=== PATIENT | female | born 1935 | race Caucasian/White ===

== ENCOUNTER 2016-05-09 15:59 | Inpatient (IN) | payer MEDICARE, OTHER ==
[~2016-05-09] VITALS: Ht 167.6 cm; Wt 78.9 kg
[~2016-05-09 15:59] MED LIST: ACET-171 PO; BISM262T15 PO; CALC-1001 PO; LEVO50TA6 PO; NITR0.4T6 SL; OMEP20TA86 PO; SIMV20TA4 PO; TOLT4CAP13 PO
--- NOTE | 2016-05-09 16:09 | ED.REPORT ---
HPI-Neurologic Deficit Date of Service May 09, 2016 ED Provider: Dr. Simon Tamez MD An 81 year old female with a history of hyperlipidemia, angina and hypertension presents to the ED via EMS with stroke symptoms that began at 1535. Her last known well was 1535. Grandson reports sudden onset of dysphasia and right sided weakness. Patient states that she initially felt "as if her limbs were not her own". EMS attempted to lift the patient onto a gurney but she was unable to move her right extremities. She claims that her symptoms have improved but she does not believe that she is currently at her baseline. Patient denies any pain during the episode and denies any similar previous episodes. She was seen on 2015 for angina and her results revealed a normal chest CT and echocardiogram. Nursing Notes Stated Complaint: DIFFICULTY SPEAKING Nursing Notes Reviewed: Yes Allergies: Coded Allergies: iodine (Verified Allergy, Unknown, 04/17/16) Scheduled Levothyroxine (Levothyroxine) 50 Mcg Tablet 50 MCG PO DAILY Omeprazole (Omeprazole) 20 Mg Tablet.dr 40 MG PO BID Simvastatin (Simvastatin) 20 Mg Tablet 20 MG PO HS Tolterodine Tartrate ER (Tolterodine Tartrate ER) 4 Mg Capsule 4 MG PO DAILY Scheduled PRN Acetaminophen (Acetaminophen) 500 Mg Tablet 1,000 MG PO TID PRN PRN For Pain Bismuth Subsalicylate (Pepto-Bismol) 262 Mg Tab.chew 262-1,048 MG PO PRN PRN PRN For Dyspepsia or Heartburn Calcium Carbonate (Calcium Carbonate) 300 Mg Calcium (750 Mg) Tab.chew 300 MG PO PRN For Dyspepsia or Heartburn Nitroglycerin SL (Nitroglycerin SL) 0.4 Mg Tab.subl 0.4 MG SL Q5MIN PRN PRN For Chest Pain Repeat every 5 minutes, up to 3 tablets General Time Seen by Provider: 16:14 Chief Complaint Other (Dysphasia) Hx Obtained From: Patient Arrived By: Ambulance Sudden in Onset?: Yes Onset Occurred: 1 - 4 hours ago (1535) Symptom Duration: Since onset Progression Since Onset: Unchanged Associated with: Reports: Weakness (Right sided) Additional Notes: Dysphasia Pertinent Negative: Pt denies other symptoms Recent Healthcare: No recent hospitalization, Recent doctor visit Risk Factors TPA Administration/Criteria Stroke Thrombolytic Therapy : TPA Considered: Yes Neurologist Contacted: At bedside Disc Risk/Benefit/Alternatives: Yes Consent Obtained: Patient Intensive Monitoring Performed: Yes TPA Administered Intravenously: Yes (1642) Complications Encountered: No Inclusion Criteria: Measurable neuro deficit, Onset < 3hr before Tx, 18 years or older Exclusion Criteria: No exclusions Addl Ex Criteria 3-4.5 Hr: Age > 80 years NIH Stroke Scale Level of Consciousness: Alert and responsive (0) Ask Month & Age: Both questions right (0) Open/Close Eyes/Hand Forging Engineer: Performs both tasks (0) Horizontal EO Movements: None (0) Visual Chong: No visual loss (0) Facial Palsy: Normal symmetry (0) Right Arm Motor Drift (10s): Drift, hits bed (2) Left Arm Motor Drift (10s): No drift 10 sec (0) Right Leg Motor Drift (5s): Drift, hits bed (2) Left Leg Motor Drift (5s): No drift 5 sec (0) Limb Ataxia FNF/Heel-Turcios: Ataxia in 1 limb (1) Sensation (Arms/Legs/Face): P-prick dull but felt (1) (Right sided) Language Aphasia: No aphasia, normal (0) Dysarthria: No dysarthria, normal (0) Extinction/Inattention: No exctinct/inattent (0) NIHSS Score: 6 Time NIHSS Performed: 16:14 Past Medical History Past Medical History Notes: Dr. Duke Past Medical History Angina Hypothyroidism Kidney stones Reports: GERD, Hyperlipidemia, Hypertension Past Surgical History right hip hemiarthroplasty kidney stone removal Reports: Hysterectomy Smoking History Former Smoker Social History Alcohol Use: "Social" Other Social History: Good social support, Local resident Ambulatory Status Independent Review of Systems Constitutional: Denies: Chills, Fever Respiratory: Denies: Shortness of breath Cardiovascular: Denies: Chest pain GI: Denies: Abdominal pain, Nausea, Vomiting Neurologic: Reports: Numbness, Slurred speech (Dysphasia ), Weakness (Right sided weakness), Denies: Change LOC, Headache Complete sys rev & neg: except as marked. Physical Exam Initial Vital Signs Vital Signs (First) Date Time Temp Pulse Resp B/P Pulse Ox O2 Delivery O2 Flow Rate FiO2 05/09/16 16:13 101 21 130/78 98 Room Air 05/09/16 16:48 36.7 Initial VS: Reviewed Skin: Warm, Dry, No cyanosis Psychiatric: Mood/affect normal, Behavior normal, Normal thought content General/Constitutional: Awake, Alert Head / Eyes: Atraumatic, Normocephalic Respiratory / Chest: Atraumatic, Breath sounds NL, Breath sounds = bilat Cardiovascular: Heart rate NL, Regular rhythm, Heart sounds NL, No gallop, No murmurs, No rubs Neurologic: Oriented X3 NERUO: See NIH Stroke Scale in Risk Abdomen: Atraumatic, Soft, Non-tender, BS normoactive Upper Extremity / MS: Atraumatic, Vascular intact Lower Extremity / Pelvis / MS: Atraumatic, Vascular intact Interpretation & Diagnostics REPEAT HEAD CT w/o contrast Read by Radiology IMPRESSION: No acute intracranial abnormality. Specifically no evidence for blood. No change is seen since the study at 1609 hrs. of 05/09/16. Dictated by: Zaire Mcginnis M.D. on 05/09/2016 at 17:20 Lab Results Interpretation Result Diagram: 05/09/16 1610 05/09/16 1610 Test 05/09/16 16:10 05/09/16 17:11 White Blood Count 12.7th/mm3 (3.8-10.1) Red Blood Count 4.43mil/mm3 (3.90-5.20) Hemoglobin 13.7g/dL (12.0-15.6) Hematocrit 42.6% (35.0-46.0) Mean Corpuscular Volume 96.2fL (81-100) Mean Corpuscular Hemoglobin 30.9pg (27.0-35.0) Mean Corpuscular Hemoglobin Concent 32.2% (32.0-37.0) Red Cell Distribution Width 13.3% (12.3-15.4) Platelet Count 289bil/L (150-400) Neutrophils (%) (Auto) 62.0% (40-74) Lymphocytes (%) (Auto) 26.3% (14-46) Monocytes (%) (Auto) 10.8% (4-12) Eosinophils (%) (Auto) 0.5% (0-5) Basophils (%) (Auto) 0.2% (0-3) Prothrombin Time 9.8sec (8.1-12.5) Prothromb Time International Ratio 0.92ratio Activated Partial Thromboplast Time 28.0sec (22.8-33.0) Sodium Level 142mEq/L (134-144) Potassium Level 4.9mEq/L (3.5-5.2) Chloride Level 102mEq/L (97-108) Carbon Dioxide Level 25mmol/L (18-29) Blood Urea Nitrogen 14mg/dL (8-27) Creatinine 0.71mg/dL (0.57-1.00) Estimat Glomerular Filtration Rate 113mL/min (>59) Glucose Level 92mg/dL (60-99) Calcium Level 9.3mg/dL (8.5-10.1) Total Bilirubin 0.5mg/dL (0.0-1.2) Aspartate Amino Transf (AST/SGOT) 37U/L (0-50) Alanine Aminotransferase (ALT/SGPT) 31U/L (0-32) Alkaline Phosphatase 219U/L (25-165) Troponin T < 0.010ug/L (0.0-0.011) Total Protein 7.0g/dL (6.4-8.4) Albumin 3.9g/dL (3.4-5.0) Urine Color Yellow (YELLOW) Urine Appearance Clear (CLEAR,HAZY) Urine pH 7.0 (5.0-8.0) Urine Specific [place] 1.010 (1.003-1.035) Urine Protein Negativemg/dL (NEG,TRACE) Urine Glucose (UA) Negativemg/dL (NEGATIVE) Urine Ketones Negativemg/dL (NEGATIVE) Urine Occult Blood Small (NEGATIVE) Urine Nitrite Negative (NEGATIVE) Urine Bilirubin Negative (NEGATIVE) Urine Urobilinogen Normalmg/dL (NORMAL) Urine Leukocyte Esterase Negative (NEGATIVE) Urine RBC 3-10/hpf (0-2) Urine WBC 0-5/hpf (0-5) Urine Epithelial Cells Occasional/hpf (NONE-MOD) Urine Crystals None seen (NONE SEEN) Urine Bacteria None/hpf (NONE-FEW) Urine Hyaline Casts None/lpf (NONE) Urine Granular Casts None seen (NONE SEEN) Urine Waxy Casts None seen (NONE SEEN) Urine Red Blood Cell Casts None seen (NONE SEEN) Urine White Blood Cell Casts None seen (NONE SEEN) Urine Mucus None seen (None Seen) Urine Trichomonas None seen (NONE SEEN) Urine Yeast None (NONE SEEN) Urinalysis Comment None Urine Culture Reflexed Not indicated ECG Interpretation ECG Interpretation: Normal Sinus Rhythm Rate 91 Time: 17:26 Interpreted by: ED physician Normal ECG Interpretation: No change from prior ECGs CT Head Interpretation IMPRESSION: There is no acute intracranial abnormality. Atrophic changes are present. There is an old small lacune in the right thalamus. This study fulfills neurological imaging criteria for inclusion or exclusion of acute stroke therapies based on available published neurological guidelines. Dictated by: Zaire Mcginnis M.D. on 05/09/2016 at 16:18 Dr. Tamez is aware of these findings. Study: Head CT no contrast Interpretation / Wet Read by: Interpret - Radiologist Re-Eval/Medical Decision Med Decision/Clinical Course 81-year-old female with an acute ischemic stroke presenting within the three-hour time window for TPA. Decision to treat with TPA was made with the assistance of [facility] who also discussed the risks and benefits in detail with the patient in my presence. TPA was administered. We elected not to do a CT angiogram of the brain as the patient had a reported allergy to iodinated contrast that was severe. We did a repeat CT based on some vague symptoms which do not show any bleeding. We have a CCU bed available here at [facility] and we have a neurologist for consultation tomorrow. Will be admitted to the hospitalist service with neurology consultation. Summary of Info: TPA administered at 1642 CT angiogram not performed due to Iodine allergy Re-Evaluation/Progress #1: Time of Eval: 16:39 Patient Status: Condition unchanged Re-Evaluation/Progress Note: Patient is recheked. She meets with [facility] to discuss TPA administration. She is informed of the risks. Re-Evaluation/Progress #2: Time of Eval: 16:42 Patient Status: Condition unchanged Re-Evaluation/Progress Note: Patient is rechecked. She agrees to TPA administration. Informed consent given. Re-Evaluation/Progress #3: Time of Eval: 16:59 Re-Evaluation/Progress Note: Patient is rechecked. She reports that her head feels "heavy" and she is informed of the plan to obtain a second CT. Re-Evaluation/Progress #4: Time of Eval: 17:33 Patient Status: Condition improved Re-Evaluation/Progress Note: Patient is rechecked. She reports that she is feeling better. Consultation #1: Consulted With: Neurology Call Returned at: 16:24 Note: Dr. Maher [facility] Consultation #2: Referral / Consult Name: Mark Ayala MD Consulted With: Neurology Call Returned at: 16:55 Swing Driver: Will see patient, Agrees with eval, Agrees with plan Note: Dr. Ayala agrees to consult on the patient Consultation #3: Referral / Consult Name: Elzbieta Madrigal MD Consulted With: Hospitalist Call Returned at: 17:00 Swing Driver: Will see patient, Agrees with eval, Agrees with plan, Accepts admit Counseled Regarding: Diagnosis, Lab results, Need for admission Discharge & Departure Impression: Primary Impression: Acute ischemic stroke Disposition: ADMITTED TO HOSPITAL Discharge Condition All VS Reviewed: Yes Condition: Critical Referrals: Henrry Duke DO (PCP) Crit Care Except Billable Proc Time Spent: 30-74 minutes Services Performed: Patient management by me, Time spent at bedside, Reviewing test results, Reviewing imaging, Discussing patient care, Documentation in record, Time with fam/surrogate Scribe Attestation Portions of this note were transcribed by Lisa Oakes. I, Dr. Tamez personally performed the history, physical exam and medical decision-making; I reviewed and confirmed the accuracy of the information in the transcribed note. Signed by: Lisa Oakes, 05/09/16, 1750. copies to: Henrry Duke DO; Elzbieta Madrigal MD; Mark Ayala MD, Donald L MD May 09, 2016 16:09 LISA OAKES May 09, 2016 16:42
[2016-05-09 16:13] VITALS: BP 130/78; PULSE 101; RESP 21; O2SAT 98
--- NOTE | 2016-05-09 16:20 | DRSVH ---
PROCEDURE: CT BRAIN (TPA) ([id number]) INDICATIONS: SLURRED SPEECH TECHNIQUE: Noncontrast 4.5 mm thick angled axial sections acquired from the foramen magnum to the vertex, with c oronal reformats. COMPARISON: None. FINDINGS: Image quality: Excellent. CSF spaces: Basal cisterns are patent. No extra-axial fluid collections. The ventricles are symmet ashkan in size and shape. Brain: No intracranial bleeds or masses. There is cerebral volume loss for age, with resultant vent ricular and sulcal prominence. 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 There are periventricular and de ep white matter chronic small vessel ischemic changes. There is intracranial internal carotid artery atherosclerosis. Skull and face: Calvarium and visualized facial bones appear intact, without suspicious lesions. Sinuses: Visualized sinuses and mastoids are clear. IMPRESSION: There is no acute intracranial abnormality. Atrophic changes are present. There is an old small lacune in the right thalamus. This study fulfills neurological imaging criteria for inclusion or exclusion of acute stroke therapie s based on available published neurological guidelines. Dictated by: Zaire Mcginnis M.D. on 05/09/2016 at 16:18 Dr. Tamez is aware of these findings. Approved by: Zaire Mcginnis M.D. on 05/09/2016 at 16:18
[2016-05-09 16:28] LABS: BASOPHILS % (AUTO) 0.2 % (0-3); EOSINOPHILS % (AUTO) 0.5 % (0-5); MONOCYTES % (AUTO) 10.8 % (4-12); Mean Corpuscular Hemoglobin 30.9 pg (27.0-35.0); Mean Corpuscular Volume 96.2 fL (81-100); Platelet Count 289 bil/L (150-400)
[2016-05-09] MEDS ORDERED: Alteplase Dose Per Pharmacist XX ONE (16:45)
[2016-05-09 16:46] LABS: INR 0.92 ratio
[2016-05-09 17:02] LABS: TROPONIN T < 0.010 ug/L (0.0-0.011)
[2016-05-09] MEDS ORDERED: ALTEPLASE IV ONE (17:05)
[2016-05-09] MEDS ORDERED: Alteplase (No Charge) 1 mg/mL Syringe IV ONE (17:05)
--- NOTE | 2016-05-09 17:22 | DRSVH ---
PROCEDURE: CT BRAIN WITHOUT CONTRAST ([id number]) INDICATIONS: head feeling "heavy" with TPA TECHNIQUE: Noncontrast 4.5 mm thick angled axial sections acquired from the foramen magnum to the vertex, with c oronal reformats. COMPARISON: [facility], CT, BRAIN (TPA), 05/09/2016, 16:09. FINDINGS: Image quality: Excellent. CSF spaces: Basal cisterns are patent. No extra-axial fluid collections. The ventricles are symmet ashkan in size and shape. Brain: No intracranial bleeds or masses. There is cerebral volume loss for age, with resultant vent ricular and sulcal prominence. There are periventricular and deep white matter chronic small vessel ischemic changes. There is intracranial internal carotid artery atherosclerosis. Skull and face: Calvarium and visualized facial bones appear intact, without suspicious lesions. Sinuses: Visualized sinuses and mastoids are clear. IMPRESSION: No acute intracranial abnormality. Specifically no evidence for blood. No change is seen since the study at 1609 hrs. of 05/09/16. Dictated by: Zaire Mcginnis M.D. on 05/09/2016 at 17:20 Approved by: Zaire Mcginnis M.D. on 05/09/2016 at 17:20
[2016-05-09] MEDS ORDERED: 0.9% Sodium Chloride 50 ML ONE (17:30)
[2016-05-09 17:32] LABS: APPEARANCE,URINE CLEAR (CLEAR,HAZY); COLOR,URINE YELLOW (YELLOW); OCCULT BLOOD,URINE SMALL (NEGATIVE); UROBILINOGEN,URINE NORMAL (NORMAL)
[2016-05-09] MEDS ORDERED: Alum-Mag Hydrox-Simeth 30 mL Suspension PO PRN (17:45)
[2016-05-09] MEDS ORDERED: Ondansetron 2 mg/mL 2 mL Inj IVPUSH PRN (17:45)
[2016-05-09 18:00] VITALS: BP 135/90; PULSE 94; RESP 22; O2SAT 94
--- NOTE | 2016-05-09 18:08 | NUR ---
Admitted to CCU from ER at 1800hrs Pt came in with right sided weakness, stroke protocol and received TPA in the ER. Symptoms have improved. VS are stable, at this time, HR 88, BP 135/90 RR 18 sats are 95%. Neuro is improved.
[2016-05-09 18:29] VITALS: BP 120/83; PULSE 95; RESP 17; O2SAT 96
[2016-05-09 19:31] VITALS: BP 129/66; PULSE 84; RESP 14; O2SAT 95
[2016-05-09] MEDS ORDERED: NiCARdipine Inj 25 MG in Dextrose 5% 240 ML IV PRN (19:54)
[2016-05-09] MEDS ORDERED: NITROPRUSSIDE IV PRN (19:54)
[2016-05-09] MEDS ORDERED: DEXTROSE 5% IV PRN (19:54)
[2016-05-09] MEDS ORDERED: Labetalol 5 mg/mL 4 mL Inj IVPUSH PRN ×2 (19:55)
[2016-05-09] MEDS ORDERED: hydrALAZINE 20 mg/mL Inj IVPUSH PRN (19:55)
[2016-05-09] MEDS: Pantoprazole 40 mg ER24 Tablet PO SCH (20:52)
--- NOTE | 2016-05-09 21:05 | PCM.HPMED ---
Subjective Date of Service May 09, 2016 Primary Provider: Admitting Physician: Mark Ayala MD Primary Care Physician: Henrry Duke DO Attending Physician: Mark Ayala MD Admit Status: From the Emergency Department Chief Complaint: Sudden onset of right-sided weakness and dysarthria. History of Present Illness: This is a 81-year-old female who noticed onset of right-sided weakness and difficulty speaking at 3:45 PM this afternoon. Her grandson lives with her and when he heard her trying to speak he called 911 immediately. She was taken immediately to the emergency department where a CT scan was negative for hemorrhage and she underwent TPA infusion. Her symptoms resolved with treatment and she underwent a follow-up CT scan in the next hour or so that was again stable. She has never had a stroke before but she does have a history of hypertension and hyperlipidemia. Review of Systems: Positive for weakness and dysarthria. Denies chest pain, shortness breath, coughing, fever, chills, sweats, nausea, vomiting, abdominal pain, bleeding, rash, joint pain, seizures, headaches, depression, hearing loss, new allergies. Allergies Coded Allergies: iodine (Verified Allergy, Unknown, 04/17/16) Home Medications Omeprazole 40 mg twice a day Detrol LA 4 mg daily Simvastatin 20 mg daily Levothyroxine 50 g daily PMH Overactive bladder Hypothyroidism GERD Hyperlipidemia angina kidney stones Surgical History right hip hemiarthroplasty Right knee replacement Appendectomy kidney stone removal Hysterectomy Family History No family history of stroke. She was raised as an orphan since the age of 1 Social History Hx Alcohol Use: No Hx Substance Use: No Hx Tobacco Use: No Smoking Status: Former Smoker Living Arrangement: Alone Additional Information She lives alone but her grandson, who is here today, visits her frequently. Exam Vital Signs Vital Sign - Last Date Time Temp Pulse Resp B/P Pulse Ox O2 Delivery O2 Flow Rate FiO2 05/09/16 19:31 36.7 84 14 129/66 95 Room Air Exam She is alert and oriented 3, in no apparent distress. Her grandson is sitting by the bed. Everyone is quite calm and her symptoms seem to have nearly resolved. Pupils are equally round and reactive to light and accommodation. Sclera are pink and nonicteric No lymph nodes are felt head, neck, supraclavicular area. Extraocular muscles are intact. Throat looks normal. JVD is less than 6 cm. No carotid bruits are heard. Heart is regular rate and rhythm without murmur. Lungs are clear to auscultation bilaterally. Abdomen soft bowel sounds positive, nontender, no organomegaly. Breast, pelvic, rectal exams are deferred to her primary care office. Extremities have no ankle edema. Skin has no rash or jaundice. Neuro. Cranial nerves II through XII test intact except for a very subtle right tongue deviation. Deep tendon reflexes are symmetric and normal active. There is no tremor. Motor function is 4 out of 5 throughout without lateralizing deficit. Speech is fluent and without dysarthria. Gait and balance are not tested. Babinski's are downgoing bilaterally. Lab and Diagnostics Labs Laboratory Tests 72 Hours Test 05/09/16 16:10 05/09/16 17:11 White Blood Count 12.7th/mm3 (3.8-10.1) Red Blood Count 4.43mil/mm3 (3.90-5.20) Hemoglobin 13.7g/dL (12.0-15.6) Hematocrit 42.6% (35.0-46.0) Mean Corpuscular Volume 96.2fL (81-100) Mean Corpuscular Hemoglobin 30.9pg (27.0-35.0) Mean Corpuscular Hemoglobin Concent 32.2% (32.0-37.0) Red Cell Distribution Width 13.3% (12.3-15.4) Platelet Count 289bil/L (150-400) Neutrophils (%) (Auto) 62.0% (40-74) Lymphocytes (%) (Auto) 26.3% (14-46) Monocytes (%) (Auto) 10.8% (4-12) Eosinophils (%) (Auto) 0.5% (0-5) Basophils (%) (Auto) 0.2% (0-3) Prothrombin Time 9.8sec (8.1-12.5) Prothromb Time International Ratio 0.92ratio Activated Partial Thromboplast Time 28.0sec (22.8-33.0) Sodium Level 142mEq/L (134-144) Potassium Level 4.9mEq/L (3.5-5.2) Chloride Level 102mEq/L (97-108) Carbon Dioxide Level 25mmol/L (18-29) Blood Urea Nitrogen 14mg/dL (8-27) Creatinine 0.71mg/dL (0.57-1.00) Estimat Glomerular Filtration Rate 113mL/min (>59) Glucose Level 92mg/dL (60-99) Calcium Level 9.3mg/dL (8.5-10.1) Total Bilirubin 0.5mg/dL (0.0-1.2) Aspartate Amino Transf (AST/SGOT) 37U/L (0-50) Alanine Aminotransferase (ALT/SGPT) 31U/L (0-32) Alkaline Phosphatase 219U/L (25-165) Troponin T < 0.010ug/L (0.0-0.011) Total Protein 7.0g/dL (6.4-8.4) Albumin 3.9g/dL (3.4-5.0) Urine Color Yellow (YELLOW) Urine Appearance Clear (CLEAR,HAZY) Urine pH 7.0 (5.0-8.0) Urine Specific [place] 1.010 (1.003-1.035) Urine Protein Negativemg/dL (NEG,TRACE) Urine Glucose (UA) Negativemg/dL (NEGATIVE) Urine Ketones Negativemg/dL (NEGATIVE) Urine Occult Blood Small (NEGATIVE) Urine Nitrite Negative (NEGATIVE) Urine Bilirubin Negative (NEGATIVE) Urine Urobilinogen Normalmg/dL (NORMAL) Urine Leukocyte Esterase Negative (NEGATIVE) Urine RBC 3-10/hpf (0-2) Urine WBC 0-5/hpf (0-5) Urine Epithelial Cells Occasional/hpf (NONE-MOD) Urine Crystals None seen (NONE SEEN) Urine Bacteria None/hpf (NONE-FEW) Urine Hyaline Casts None/lpf (NONE) Urine Granular Casts None seen (NONE SEEN) Urine Waxy Casts None seen (NONE SEEN) Urine Red Blood Cell Casts None seen (NONE SEEN) Urine White Blood Cell Casts None seen (NONE SEEN) Urine Mucus None seen (None Seen) Urine Trichomonas None seen (NONE SEEN) Urine Yeast None (NONE SEEN) Urinalysis Comment None Urine Culture Reflexed Not indicated Result Diagram: 05/09/16 1610 05/09/16 1610 X-Rays, CTs and MRIs CT BRAIN (TPA) ([id number]) INDICATIONS: SLURRED SPEECH TECHNIQUE: Noncontrast 4.5 mm thick angled axial sections acquired from the foramen magnum to the vertex, with coronal reformats. COMPARISON: None. FINDINGS: Image quality: Excellent. CSF spaces: Basal cisterns are patent. No extra-axial fluid collections. The ventricles are symmetric in size and shape. Brain: No intracranial bleeds or masses. There is cerebral volume loss for age , with resultant ventricular and sulcal prominence. 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 There are periventricular and deep white matter chronic small vessel ischemic changes. There is intracranial internal carotid artery atherosclerosis. Skull and face: Calvarium and visualized facial bones appear intact, without suspicious lesions. Sinuses: Visualized sinuses and mastoids are clear. IMPRESSION: There is no acute intracranial abnormality. Atrophic changes are present. There is an old small lacune in the right thalamus. This study fulfills neurological imaging criteria for inclusion or exclusion of acute stroke therapies based on available published neurological guidelines. Dictated by: Zaire Mcginnis M.D. on 05/09/2016 at 16:18 Dr. Tamez is aware of these findings. CT BRAIN WITHOUT CONTRAST ([id number]) INDICATIONS: head feeling "heavy" with TPA TECHNIQUE: Noncontrast 4.5 mm thick angled axial sections acquired from the foramen magnum to the vertex, with coronal reformats. COMPARISON: [facility], CT, BRAIN (TPA), 05/09/2016, 16:09. FINDINGS: Image quality: Excellent. CSF spaces: Basal cisterns are patent. No extra-axial fluid collections. The ventricles are symmetric in size and shape. Brain: No intracranial bleeds or masses. There is cerebral volume loss for age , with resultant ventricular and sulcal prominence. There are periventricular and deep white matter chronic small vessel ischemic changes. There is intracranial internal carotid artery atherosclerosis. Skull and face: Calvarium and visualized facial bones appear intact, without suspicious lesions. Sinuses: Visualized sinuses and mastoids are clear. IMPRESSION: No acute intracranial abnormality. Specifically no evidence for blood. No change is seen since the study at 1609 hrs. of 05/09/16. Dictated by: Zaire Mcginnis M.D. on 05/09/2016 at 17:20 Assessment & Plan Acute Nonhemorrhagic CVA -She seems to have had nearly full recovery of right sided weakness and dysarthria with TPA given very quickly and within the window in the emergency department. -She she has had 2 head CTs which are stable. -She continues on her home doses of blood pressure and lipid lowering medicines. -She will be evaluated by speech therapy and occupational therapy. -She will have frequent neuro checks and will be in the intensive care unit overnight. -Dr. Ayala will be seeing her in the morning. Hypothyroidism -Continue levothyroxine. Hyperlipidemia -Continue simvastatin. GERD -Continue omeprazole. Overactive Bladder -Continue Detrol LA. Pratik Madrigal MD Resuscitation Status: CPR: Attempt Resuscitation Elzbieta Madrigal MD May 09, 2016 20:11
[2016-05-10] VITALS (7 sets, daily range): BP systolic 116–154; BP diastolic 54–81; PULSE 68–92; RESP 14–18; O2SAT 94–98
--- NOTE | 2016-05-10 05:39 | NUR ---
Neuro / Resp No changes in neuro status during retail shift leader. Patient remains A&O x3. Pupils equal and reactive to light. Right arm and leg slightly weaker than left arm and leg. Face symmetrical and tongue midline. Patient remains on hourly neuro checks per post TPA protocol. Patient's SpO2 occasionally drops to the upper 80s while sleeping. 2L NC applied. Patient denies any shortness of breath while awake.
--- NOTE | 2016-05-10 07:57 | PCM.PNMED ---
Subjective Date of Service May 10, 2016 Subjective She had thrombolytics yesterday. Sure speech is much better. Her right arm is still weak but much better. Her right leg is still very weak. No chest pain, Palpitations, or dyspnea. No abdominal pain. Exam Vital Signs Vital Sign - Last Date Time Temp Pulse Resp B/P Pulse Ox O2 Delivery O2 Flow Rate FiO2 05/10/16 03:45 36.5 05/10/16 00:18 87 05/09/16 19:31 14 129/66 95 Room Air Intake and Output 05/09/16 05/09/16 05/10/16 Cumulative From/Thru 15:00 23:00 07:00 05/09/16 16:13 - 05/10/16 06:26 Intake Total 50 ml 50 ml Output Total 400 ml 300 ml 700 ml Balance -350 ml -300 ml -650 ml Intake IV Total 50 ml 50 ml Output Urine Total 400 ml 300 ml 700 ml Exam Alert oriented 3. Fluent speech. Normal skull Anicteric sclerae, symmetric pupils Neck supple Lungs are clear, normal effort Heart is regular without murmur gallop or rub Abdomen is soft nondistended. Extremities are free of edema. No facial droop, normal speech. Right arm is product that she can lifted off from the bed and flex at the elbow and get her hand her nose. Right leg is deeply paretic. She is to use a left leg to left. IVs and Medications Medications Reviewed: Medications were reviewed in detail Lab and Diagnostics Result Diagram: 05/09/16 1610 05/09/16 1610 X-Rays, CTs and MRIs CT BRAIN (TPA) ([id number]) INDICATIONS: SLURRED SPEECH TECHNIQUE: Noncontrast 4.5 mm thick angled axial sections acquired from the foramen magnum to the vertex, with coronal reformats. COMPARISON: None. FINDINGS: Image quality: Excellent. CSF spaces: Basal cisterns are patent. No extra-axial fluid collections. The ventricles are symmetric in size and shape. Brain: No intracranial bleeds or masses. There is cerebral volume loss for age , with resultant ventricular and sulcal prominence. 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 There are periventricular and deep white matter chronic small vessel ischemic changes. There is intracranial internal carotid artery atherosclerosis. Skull and face: Calvarium and visualized facial bones appear intact, without suspicious lesions. Sinuses: Visualized sinuses and mastoids are clear. IMPRESSION: There is no acute intracranial abnormality. Atrophic changes are present. There is an old small lacune in the right thalamus. This study fulfills neurological imaging criteria for inclusion or exclusion of acute stroke therapies based on available published neurological guidelines. Dictated by: Zaire Mcginnis M.D. on 05/09/2016 at 16:18 Dr. Tamez is aware of these findings. CT BRAIN WITHOUT CONTRAST ([id number]) INDICATIONS: head feeling "heavy" with TPA TECHNIQUE: Noncontrast 4.5 mm thick angled axial sections acquired from the foramen magnum to the vertex, with coronal reformats. COMPARISON: [facility], CT, BRAIN (TPA), 05/09/2016, 16:09. FINDINGS: Image quality: Excellent. CSF spaces: Basal cisterns are patent. No extra-axial fluid collections. The ventricles are symmetric in size and shape. Brain: No intracranial bleeds or masses. There is cerebral volume loss for age , with resultant ventricular and sulcal prominence. There are periventricular and deep white matter chronic small vessel ischemic changes. There is intracranial internal carotid artery atherosclerosis. Skull and face: Calvarium and visualized facial bones appear intact, without suspicious lesions. Sinuses: Visualized sinuses and mastoids are clear. IMPRESSION: No acute intracranial abnormality. Specifically no evidence for blood. No change is seen since the study at 1609 hrs. of 05/09/16. Dictated by: Zaire Mcginnis M.D. on 05/09/2016 at 17:20 Assessment & Plan 1. Acute CVA with right hemiparesis. POA. Status post thrombolytics with significant improvement but a residual right hemiparesis right leg greater than arm. We will start aspirin 325 mg today, brain MRI, carotid duplex ultrasound sounds, 2-D echo. Continue atorvastatin. Physical therapy and speech evaluation. 2. Chronic hypothyroidism. POA. Continue levothyroid. 3. Chronic hyperlipidemia, POA. Continue statin. 4. Chronic GERD. POA. Continue omeprazole. Patient's full resuscitation. She is admitted inpatient status, anticipated length of stay of over 2 nights given medical complexity of her care. DVT prophylaxis. VTE Mechanical Devices: Intermittant Pneumatic CD Resuscitation Status: CPR: Attempt Resuscitation Lio Olsen MD May 10, 2016 07:57
[2016-05-10] MEDS: Pantoprazole 40 mg ER24 Tablet PO SCH (08:17)
[2016-05-10] MEDS: Tolterodine ER 4 mg ER24 Capsule PO SCH ×2 (08:18→13:20)
[2016-05-10] MEDS: Heparin 5,000 Unit/mL Inj SUBQ SCH ×2 (08:29→20:54)
--- NOTE | 2016-05-10 10:01 | NUR ---
Evaluation completed. Please go to "Notes" then click on "Assessments and Notes" (bottom left corner of screen). Then select appropriate discipline tab on top of screen.
--- NOTE | 2016-05-10 12:29 | NUR ---
Evaluation completed. Please go to "Notes" then click on "Assessments and Notes" (bottom left corner of screen). Then select appropriate discipline tab on top of screen.
--- NOTE | 2016-05-10 12:55 | DRSVH ---
PROCEDURE: US BILATERAL DUPLEX DOPPLER IMAGING OF THE CAROTIDS ([id number]) INDICATIONS: cva TECHNIQUE: Color and pulse Doppler interrogation was performed of both carotid systems, with image documentation and velocity measurements. COMPARISON: [facility], CT, BRAIN (TPA), 05/09/2016, 16:09. FINDINGS: All stenosis calculations are based on NASCET criteria. Right side: Brachial blood pressure: 129/66 mm Hg. Common Carotid Artery(Distal) PSV: 74.90 cm/s Internal Carotid Artery PSV- Proximal: 82.60 cm/s Mid-lon.90 cm/s Distal: 85.30 cm/s EDV - Proximal: 25.20 cm/s Mid-lon.40 cm/s Distal: 29.20 cm/s External Carotid Artery(Proximal) PSV: 70.50 cm/s ICA/CCA PSV ratio: 1.1 Dumont scale imaging description: Calcified plaques at the bifurcation Percent internal carotid artery stenosis: Less than 50%. Vertebral artery: Not visualized. Left side: Brachial blood pressure: n.a. Common Carotid Artery(Distal) PSV: 73.20 cm/s Internal Carotid Artery PSV - Proximal: 86.40 cm/s Mid-lon.70 cm/s Distal: 98.10 cm/s EDV - Proximal: 23.40 cm/s Mid-lon.80 cm/s Distal: 26.50 cm/s External Carotid Artery(Proximal) PSV: 66.70 cm/s ICA/CCA PSV ratio: 1.46 Dumont scale imaging description: Calcified plaques at the bifurcation Percent internal carotid artery stenosis: Less than 50%. Vertebral artery: Flow direction is antegrade. IMPRESSION: 1. Less than 50% internal carotid artery stenosis bilaterally. 2. Right vertebral artery not visualized. 3. Antegrade flow of the left vertebral artery. Dictated by: Amna Mcdonough M.D. on 05/10/2016 at 12:52 Approved by: Amna Mcdonough M.D. on 05/10/2016 at 12:52
--- NOTE | 2016-05-10 14:52 | NUR ---
Evaluation completed. Please go to "Notes" then click on "Assessments and Notes" (bottom left corner of screen). Then select appropriate discipline tab on top of screen.
--- NOTE | 2016-05-10 15:33 | NUR ---
P: Change in Neuro status I: Pt alert and oriented. Up with OT and PT. MRI done. Echo completed. US done. Swallow evaluation done and taking po well. UP with 2 assist as pt very weak on right. Voiding via bedpan. VSS. Neuro remains stable and right leg and arm weakness remain the same. NSR. O2 at 2L/NC with sats stable. Afebrile. Hourly neuro checks per s/p CVA/TPA protocol. E: Stable S: Uses call light appropriately. Not trying to get up out of bed. Frequent rounding and Q hourly neuro checks.
--- NOTE | 2016-05-10 15:37 | DRSVH ---
PROCEDURE: MRI BRAIN WITHOUT CONTRAST ([id number]) INDICATIONS: cva TECHNIQUE: Non-contrast axial T1 spin echo, axial T2 fast spin echo, sagittal and axial FLAIR, coronal T2 fast s pin echo, axial gradient echo, axial diffusion and ADC through the brain. COMPARISON: None. FINDINGS: Image quality: Excellent. CSF spaces: Ventricles appear symmetric in size and shape. Basal cisterns are patent. No extra-axi al fluid collections. Brain: No intracranial bleeds or mass effects. There is cerebral volume loss for age. There are pe riventricular and deep white matter chronic small vessel ischemic changes. Brainstem appears normal. Diffusion-weighted images show 1 cm focus of acute ischemia the junction of the left thalamus and p osterior limb of the left internal capsule image 64. No chronic ischemic insults. Normal intravascular flow voids are present. Skull and face: Calvarial bone marrow is normal in signal. Orbits are normal. Sinuses: Sinuses and mastoids are clear. IMPRESSION: Acute ischemia, presumably lacunar infarct, in the region of the left thalamus and internal capsule Dictated by: Matt Adams M.D. on 05/10/2016 at 15:35 Approved by: Matt Adams M.D. on 05/10/2016 at 15:35
--- NOTE | 2016-05-10 22:36 | CONS ---
[address] [address] CONSULTATION REPORT PATIENT: CAMERON JAMES : 1935 MR#: [id number] ADMIT: 05/09/2016 JOB ID: [id number] DATE OF SERVICE: 05/10/2016 REQUESTING PROVIDER: Simon Tamez MD. CHIEF COMPLAINT: Sudden onset of dysarthric speech and right-sided weakness. HISTORY OF PRESENT ILLNESS: The patient is a very pleasant 81-year-old right-handed woman with a past medical history of hypertension, hyperlipidemia and a history of a right femur fracture, who presents for evaluation following sudden onset of dysarthria, as well as right-sided weakness. She received tissue plasminogen activator and has noted significant improvement in her symptoms. Her symptoms began at 15:35 on May 09, 2016. Her grandson noted new onset of symptoms and called 911. She is allergic to IODINE CONTRAST, and because of this did not receive a CT angiogram. She reports that she does not take aspirin. tPA was administered at 16:42. Her NIH Stroke Scale was remarkable for right arm drift score of 2, right leg drift score of 2, limb ataxia score of 1, sensations score of 1 on the right side, and total NIH Stroke Scale of 6. Today's NIH Stroke Scale is remarkable for a mild degree of facial asymmetry with right nasolabial fold flattening of 1, right arm motor drift of 1, right leg motor drift of 1, and sensation of 1, for a total score of 5, and her modified Martin scale is 4, moderately severe disability, unable to walk without assistance, unable to attend to own bodily needs without assistance. MEDICATIONS: At home include: 1. Levothyroxine 50 mcg daily. 2. Omeprazole 40 mg p.o. b.i.d. 3. Simvastatin 20 mg p.o. q.h.s. 4. Tolterodine 4 mg daily. PAST MEDICAL HISTORY: Angina, hypothyroidism, nephrolithiasis, gastroesophageal reflux disease, irritable bowel syndrome, hyperlipidemia, hypertension. PAST SURGICAL HISTORY: Status post right hip hemiarthroplasty, reportedly a right femur fracture, for which she does have a pin in place, kidney stone removal and hysterectomy. SOCIAL HISTORY: She lives with her grandson, who has been staying with her for several months. He is from [place]. Occasional alcohol. Good social support. Local resident. Former smoker. No recent smoking and no recreational drug use. She does drive. REVIEW OF SYSTEMS: A complete review of systems was performed and was remarkable for above noted. LABORATORY STUDIES: WBC of 12.7, hemoglobin 13.7, hematocrit was 42.6 and platelets of 289. Coags: PT 9.8, INR 0.92 and PTT was 28.0. Chemistry: Sodium 142, potassium 4.9, chloride 102, bicarb was 25, BUN was 14, creatinine 0.71 and glucose 92. Hemoglobin A1c is pending. Calcium 9.3, total bilirubin 0.5, AST 37, ALT was 31. Alkaline phosphatase was 219. Incidentally, she does report taking Tylenol on a regular basis for osteoarthritic associated pain. Triglycerides 121, cholesterol 189, LDL cholesterol 84.8, HDL is 80. Urinalysis: Small occult blood, occasional urine epithelial cells, otherwise unremarkable. IMAGING STUDIES: Initial CT of the head: There was no acute intracranial abnormality. Atrophic changes are present. There was an old small lacune in the right thalamus. A repeat CT showed no acute intracranial abnormality, specifically no evidence for blood. Carotid duplex was performed, demonstrated less than 50% internal carotid artery stenosis bilaterally, right vertebral artery is not visualized. Antegrade flow of the left vertebral artery was noted. Magnetic resonance imaging study of the brain was performed, demonstrating acute ischemia, presumably lacunar infarct in the region of the left thalamus and internal capsule. MRSA surveillance culture is pending. PHYSICAL EXAMINATION: Temperature 36.5, pulse is 68, respiratory rate of 18, blood pressure 122/54, pulse oximetry 98% on 2 L nasal cannula. Incidentally, her blood pressure did rise to 154/70 during the course of her hospitalization. General: She is a well-developed, well-nourished, pleasant woman in no acute distress, looking younger than age. Head: Normocephalic, atraumatic. Neck is supple. No carotid bruits were auscultated. Negative Kernig. Negative Brudzinski. Chest: Clear to auscultation. Heart: Regular rate and rhythm. Abdomen: Soft, nondistended, nontender. Extremities: No cyanosis, clubbing or edema. NEUROLOGIC EXAMINATION: Mental status: She is awake, alert, oriented x3. Speech clear and fluent with intact comprehension. There was no aphasia. Speech was clear and fluent. She does have a dry mouth. Cranial nerves: Pupils equal, round, reactive to light. Extraocular movements were smooth and conjugate with no evidence of nystagmus. Face appeared symmetrical, with the exception of mild flattening of the right nasolabial fold. Facial sensation was diminished to light touch and temperature on the right. Tongue was midline. Sternocleidomastoid and trapezii are 5/5 bilaterally. Auditory sensation was intact to finger rub bilaterally. Motor: Right hemiparesis. The right upper extremity was 4/5 and the right lower extremity was 3-/5. Mildly reduced tone in the right upper and right lower extremity. Coordination: She did have difficulty on [id number] on the right, however, it was proportional to the degree of weakness with no evidence of dysmetria. Sensation was diminished to light touch and temperature in the right upper and right lower extremities. Deep tendon reflexes 2+ and symmetrical. There was a positive Babinski sign present on the right. Gait was deferred. IMPRESSION: Cerebrovascular accident right thalamus/internal capsule, appears to be a lacunar infarct. My suspicion is that this is secondary to underlying stroke risk factors, namely hypertension and hyperlipidemia. Considering that her lipids appear to be well controlled, my suspicion is that this is likely secondary to hypertension. See above National Institutes of Health Stroke Scale which is 5 status post tPA and modified Jam scale which is 4. As noted above, I do suspect the stroke was secondary to hypertension primarily, however, also hyperlipidemia may play a role. She reports no cardiac history. Telemetry monitoring is negative for any cardiac arrhythmias such as atrial fibrillation. Her echocardiogram was performed and presently is pending. Continue stroke protocol. Continue post tPA protocol. Continue physical therapy/occupational therapy. Continue management as per the recommendations of speech and swallow therapy. Continue to optimize control of stroke risk factors. I do recommend rehabilitative therapy. Aspirin to be started 24 hours after tissue plasminogen activator administration. I do recommend obtaining a magnetic resonance angiogram of her head and neck to exclude the possibility of intracranial stenosis. Thank you, again, Dr. Simon Tamez, for allowing me to participate in the care of your patient. I sincerely appreciate seeing this patient. Please feel free to contact me with any questions or concerns. VERA
[2016-05-11] VITALS (9 sets, daily range): BP systolic 113–146; BP diastolic 69–78; PULSE 73–86; RESP 16–20; O2SAT 92–98
--- NOTE | 2016-05-11 05:13 | NUR ---
Rest/Neuro Pt was able to get rest throughout the night. Pt's right arm drifts but the pt's right hand construction estimator is the same strength as the pt's left hand construction estimator. Pt was able to slightly move right leg but still unable to lift the leg fully off of the bed. Pt does have sensation in the right side of the body but it is slightly less than the left side. Pt remained on bedrest and did not attempt to get OOB and used the call light appropriately.
--- NOTE | 2016-05-11 09:06 | DRSVH ---
[address] [place] [address] Echocardiogram Report Name: CAMERON JAMES JStudy Date: Height: 66 in Hospital Exam Location: [facility] Weight: 176 lb Gender: Female BSA: 1.9 m2 : 1935 Age: 81 yrs BP: 129/66 mmHg Reason For Study: STROKE Ordering Physician: HOSPITALIST [facility] Performed By: Juan C Orellana Referring Physician: Dr. Michael Duke Interpretation Summary Injection of contrast documented no obvious interatrial shunt (suboptimal image quality). The interatrial septum is intact with no evidence for an atrial septal defect. Procedure: A limited 2D and color Doppler echocardiogram was performed to assess for a PFO. A saline contrast injection was performed to assess for cardiac shunting. The study quality was technically adequate. Comparison is made with the echocardiogram of 04/19/16. The patient was in normal sinus rhythm during the exam. Left Ventricle: The left ventricle is normal in size. There is normal left ventricular wall thickness. The ejection fraction is estimated to be 60-65%. Right Ventricle: The right ventricle is normal in size and function. Atria: Injection of contrast documented no obvious interatrial shunt (suboptimal image quality). The interatrial septum is intact with no evidence for an atrial septal defect. MMode/2D Measurements & Calculations LVIDd: 4.6 cm IVC diam asc Aorta LV bermudez. diameter/BSA LVIDs: 3.0 cm : 1.2 cm Diam: 3.2 cm (cm/m^2): 2.5 FS: 36.3 % IVSd: 0.89 cm LVPWd: 1.0 cm LV sys. diameter/BSA (cm/m^2): 1.6 Reading Physician:DARLENE
[2016-05-11] MEDS: Tolterodine ER 4 mg ER24 Capsule PO SCH (09:17)
[2016-05-11] MEDS: Heparin 5,000 Unit/mL Inj SUBQ SCH ×2 (09:19→20:34)
[2016-05-11] MEDS: Pantoprazole 40 mg ER24 Tablet PO SCH (09:20)
--- NOTE | 2016-05-11 13:05 | NUR ---
Social Work Note: Initial Assessment Data& Assessment: SW met with pt at bedside to discuss discharge planning, SW role explained. Agus Titus is a 81 year old female admitted on 05/09/2016 for acute CVA. Pt has Medicare and for life supplement. Pt sees Henrry Rose MD for primary care. Pt lives in [place] alone in a condo with an elevator. Prior to her stroke, pt was independent with all ADL's, no DME, and drove. Pt denies any HH hx. Pt has been to a SNF a few years ago in [place] after her hip replacement. Pt denies any LT insurance or VA service connection benefits. Pt provided with DPOA paperwork to complete. ST is recommending cognitive therapy with a ST. PT and OT are recommending inpt rehab. Pt explained she would prefer to go to a SNF so she is is closer to her home. Pt provided with SNF list for preferences. Pt has a preference for [facility]. UR specialist sent referral for them to start reviewing pt. Pt denies any other needs at this time. SW to continue to follow if any needs arise. Plan: Anticipated discharge to [facility] pending acceptance when medically ready. Pt denies any other needs at this time. SW to continue to follow if any needs arise. DARLYN Glez Addendum: 05/11/16 at 1310 by CHRISTINA LEBLANC Amended: Links added. Addendum: 05/11/16 at 1529 by CHRISTINA DIAZ SS KARAN spoke with Flip Director at [facility] who explained they are able to accept pt when medically ready. KARAN stated pt may be medically ready in the next 1-2 days and Flip confirmed they have bed availability. DARLYN Glez
--- NOTE | 2016-05-11 13:07 | DRSVH ---
PROCEDURE: MRI STROKE PROTOCOL ([id number]) Pre- and post-contrast brain MRI, non-contrast brain MR angiogram, pre- and postcontrast neck MR marcia ogram INDICATIONS: Post tPA Infusion TECHNIQUE: Brain: Noncontrast axial T1 spin echo, axial T2 fast spin echo, sagittal and axial FLAIR, coronal T2 fast spin echo, axial gradient echo, axial diffusion and ADC through the brain. After the administr ation of contrast, axial 3D VIBE of the cranial vasculature and brain. Brain MRA: Non-contrast 3-D time of flight MR angiogram, with multiple egvvxse-nutullgjc-gzekcbcyvo (MIP) reformats performed. Neck MRA: Axial and sagittal TruFISP through the neck. Coronal dynamic MR angiogram during administ ration of contrast in the arterial and venous phases, with 3-dimenstional ctnehdq-stefvcilx-kfohtygiu n (MIP) reformats constructed from subtraction images. COMPARISON: [facility], US, US CAROTID DPLX DOPPLER BILAT, 05/10/2016, 10:51. [facility], MR, MR BRAIN WO CON, 05/10/2016, 14:49. FINDINGS: Image quality: Excellent. BRAIN: CSF spaces: Ventricles are normal in size and shape. Basal cisterns are patent. No extra-axial flu id collections. Brain: No intracranial bleeds or mass effects. Dumont-white matter interface is normal. As before, di ffusion weighted imaging demonstrates a 10 mm diameter focus of elevated signal intensity within the left thalamus. This lesion demonstrates moderately increased fair signal intensity, indicating a suba cute infarct. There is mild diffuse volume loss and mild patchy FLAIR signal elevation within the sanford s and periventricular and subcortical white matter, consistent with small vessel ischemic disease. Br ainstem otherwise appears normal. Normal intravascular flow voids are present. No abnormal intracra nial enhancement. Skull and face: Calvarial marrow signal is normal. Orbits appear normal. Sinuses: Sinuses and mastoids are clear. BRAIN MR ANGIOGRAM: Anterior circulation: Intracranial internal carotid arteries are normal in size and enhancement. Th e flow within the paired anterior cerebral arteries is normal and symmetric. The flow within the mid dle cerebral arteries is normal and symmetric. The anterior communicating artery is seen. No stenos es, occlusions, or aneurysms. Posterior circulation: The visualized portions of the vertebral arteries demonstrate normal caliber, and join to form a normal appearing basilar artery. origins of posterior cerebral arteries rubia aterally. The flow within the posterior cerebral arteries is normal and symmetric. No stenoses, occl usions, or aneurysms. NECK MR ANGIOGRAM: Carotids: Great vessels demonstrate a conventional anatomy as they arise from the aortic arch. The origins of the common carotid arteries appear patent. The calibers and courses of both common caroti d arteries are normal. The bifurcation regions appear normal bilaterally. The internal carotid karen ozzie demonstrate normal course and caliber. Posterior circulation: The origins of the vertebral arteries appear patent. More superior portions of both vertebral arteries demonstrate normal course and caliber, and join to form a normal appearing basilar artery. Miscellaneous: Subclavian arteries appear patent. Pre-contrast images through the neck show no soft tissue abnormalities. IMPRESSION: BRAIN MRI: 1. Small late subacute left thalamic infarct. 2. No acute intracranial abnormality. No intracranial hemorrhage. 3. Volume loss and small vessel ischemic disease. BRAIN MR ANGIOGRAM: Negative cerebral MR angiography. NECK MR ANGIOGRAM: 1. No internal carotid artery stenosis bilaterally. 2. Patent bilateral vertebral arteries. The estimate of stenosis included in the report of the imaging study was calculated using the NASCET method Dictated by: Jael Carver M.D. on 05/11/2016 at 13:05 Approved by: Jael Carver M.D. on 05/11/2016 at 13:05
--- NOTE | 2016-05-11 13:22 | NUR ---
Gave access and faxed facesheet to [facility] Juany Walters per [employer]
--- NOTE | 2016-05-11 14:27 | PCM.PNMED ---
Subjective Date of Service May 11, 2016 Subjective She is doing better. Her right arm and leg are both improving but still hemiparetic. No difficulty with swallowing or speech. No headache. No visual changes. No chest pain cough shortness of breath or abdominal pain Exam Vital Signs Vital Sign - Last Date Time Temp Pulse Resp B/P Pulse Ox O2 Delivery O2 Flow Rate FiO2 05/11/16 13:32 Room Air 05/11/16 08:25 86 05/11/16 08:20 36.3 16 129/74 95 1.00 Intake and Output 05/10/16 05/10/16 05/11/16 Cumulative From/Thru 15:00 23:00 07:00 05/09/16 16:13 - 05/11/16 06:01 Intake Total 800 ml 400 ml 1250 ml Output Total 800 ml 200 ml 1700 ml Balance 0 ml 200 ml -450 ml Intake Oral 800 ml 400 ml 1200 ml IV Total 50 ml Output Urine Total 800 ml 200 ml 1700 ml # Voids 1 1 Exam Third oriented 3, fluent speech Anicteric sclera Conjugate gaze Neck supple. Lungs are clear Heart is regular without murmur Abdomen is soft Extremities are free of edema She has hemiparesis of the right leg greater than the right arm but can lift the arm up off the table and can move the foot a bit. IVs and Medications Medications Reviewed: Medications were reviewed in detail Lab and Diagnostics Result Diagram: 05/09/16 1610 05/09/16 1610 X-Rays, CTs and MRIs CT BRAIN (TPA) ([id number]) INDICATIONS: SLURRED SPEECH TECHNIQUE: Noncontrast 4.5 mm thick angled axial sections acquired from the foramen magnum to the vertex, with coronal reformats. COMPARISON: None. FINDINGS: Image quality: Excellent. CSF spaces: Basal cisterns are patent. No extra-axial fluid collections. The ventricles are symmetric in size and shape. Brain: No intracranial bleeds or masses. There is cerebral volume loss for age , with resultant ventricular and sulcal prominence. 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 There are periventricular and deep white matter chronic small vessel ischemic changes. There is intracranial internal carotid artery atherosclerosis. Skull and face: Calvarium and visualized facial bones appear intact, without suspicious lesions. Sinuses: Visualized sinuses and mastoids are clear. IMPRESSION: There is no acute intracranial abnormality. Atrophic changes are present. There is an old small lacune in the right thalamus. This study fulfills neurological imaging criteria for inclusion or exclusion of acute stroke therapies based on available published neurological guidelines. Dictated by: Zaire Mcginnis M.D. on 05/09/2016 at 16:18 Dr. Tamez is aware of these findings. CT BRAIN WITHOUT CONTRAST ([id number]) INDICATIONS: head feeling "heavy" with TPA TECHNIQUE: Noncontrast 4.5 mm thick angled axial sections acquired from the foramen magnum to the vertex, with coronal reformats. COMPARISON: [facility], CT, BRAIN (TPA), 05/09/2016, 16:09. FINDINGS: Image quality: Excellent. CSF spaces: Basal cisterns are patent. No extra-axial fluid collections. The ventricles are symmetric in size and shape. Brain: No intracranial bleeds or masses. There is cerebral volume loss for age , with resultant ventricular and sulcal prominence. There are periventricular and deep white matter chronic small vessel ischemic changes. There is intracranial internal carotid artery atherosclerosis. Skull and face: Calvarium and visualized facial bones appear intact, without suspicious lesions. Sinuses: Visualized sinuses and mastoids are clear. IMPRESSION: No acute intracranial abnormality. Specifically no evidence for blood. No change is seen since the study at 1609 hrs. of 05/09/16. Dictated by: Zaire Mcginnis M.D. on 05/09/2016 at 17:20 Assessment & Plan 1. Acute CVA with right hemiparesis. POA. Status post thrombolytics with significant improvement but a residual right hemiparesis right leg greater than arm. We will start aspirin 325 mg daily. Try duplex ultrasounds negative for greater than 50% stenosis. MRI reveals a right internal capsule lacunar infarct. The plan is to continue with aspirin, add atorvastatin, physical therapy and's occupational therapy evaluations. We will then look at possibly inpatient rehabilitation referral. 2. Chronic hypothyroidism. POA. Continue levothyroid. 3. Chronic hyperlipidemia, POA. Continue statin. 4. Chronic GERD. POA. Continue omeprazole. Patient's full resuscitation. She is admitted inpatient status, anticipated length of stay of over 2 nights given medical complexity of her care. DVT prophylaxis. Pain Evaluation: Adequate Pain Control VTE Mechanical Devices: Intermittant Pneumatic CD Resuscitation Status: CPR: Attempt Resuscitation Time spent 20 minutes Lio Olsen MD May 11, 2016 14:27
--- NOTE | 2016-05-11 18:20 | NUR ---
Nuero/Activity Patient a/o x 3, denies pain, nausea or sob. Patient has mild RUE and RLE weakness with drifts. Patient c/o RLE numbness which has improved slightly throughout the shift per patient. Patient oob with walker and one person assist x 2, divya well, but becomes anxious and fearful of falling r/t RLE weakness and sensation of RLE buckling. Patient encouraged to rely on staff assistance for amb safety. Patient able to sit in chair for approx 4 hrs this shift. Taking diet well, feeding self without problem. VSS, tele SR. Will cont poc.
[2016-05-12 04:05] VITALS: BP 117/74; PULSE 80; RESP 20; O2SAT 95
[2016-05-12] MEDS: Pantoprazole 40 mg ER24 Tablet PO SCH (06:26)
--- NOTE | 2016-05-12 06:27 | NUR ---
neuro pt reports getting stronger. pts right side with a slight weakness, she mostly c/o numbness in parts of her right arm and leg. pt able to stand with 2pa and FWW, no other deficits noted. pt tolerating po well and denies any pain.
[2016-05-12 08:00] VITALS: PULSE 77
[2016-05-12 08:32] LABS: Mean Corpuscular Hemoglobin 31.2 pg (27.0-35.0); Mean Corpuscular Volume 94.2 fL (81-100)
[2016-05-12 08:43] VITALS: BP 131/70; PULSE 75; RESP 18; O2SAT 93
[2016-05-12] MEDS: Heparin 5,000 Unit/mL Inj SUBQ SCH (08:56)
[2016-05-12] MEDS: Tolterodine ER 4 mg ER24 Capsule PO SCH (08:56)
--- NOTE | 2016-05-12 11:14 | PCM.DIMED ---
Discharge Instructions Date of Service May 12, 2016 Dates of Hospitalization May 09, 2016 at 17:46 Discharge Diagnosis Discharge Diagnosis 1. CVA (lacunar) with right hemiparesis, improving 2. Hypertension 3. Hyperlipidemia 4. Hypothyroidism Diet Heart Healthy Activity Other (Per PT and OT) Patient Instructions Follow-up with PCP in: 2 weeks Lio Olsen MD May 12, 2016 11:14
[2016-05-12] MEDS ORDERED: LIP40 PO (11:16)
[2016-05-12] MEDS ORDERED: ASPI-973 PO (11:16)
[2016-05-12] MEDS ORDERED: LEVO50TA6 PO (11:16)
[2016-05-12] MEDS ORDERED: TOLT4CAP13 PO (11:16)
[2016-05-12] MEDS ORDERED: OMEP20TA86 PO (11:16)
--- NOTE | 2016-05-12 11:51 | NUR ---
Social Work Note: Discharge Data& Assessment: Per pt is medically ready to discharge to [facility] via wheelchair van arranged by facility. Joselin Titus is a 81 year old female admitted on 05/09/2016 for acute CVA. Per pt is medically improved and ready to discharge to begin rehab. KARAN confirmed with [place] Admission coordinator at [facility] that pt is accepted and arranged wheelchair van transportation for 1:00p.m. SW confirmed discharge plan with pt at bedside. Pt explained she notified her daughter of her discharge. Pt denies any other needs. Pt, RN, , and facility all updated and agreeable to plan. Plan: er MD pt is medically ready to discharge to [facility] via wheelchair van arranged by facility.Pt denies any other needs. Pt, RN, , and facility all updated and agreeable to plan. DARLYN Glez
[2016-05-12 12:49] VITALS: BP 126/84; PULSE 104; RESP 16; O2SAT 98
--- NOTE | 2016-05-12 13:15 | NUR ---
Discharge Pt. discharged to [facility] and Pt. took all her belongings with her. Pt. left with Van transport in wheel chair, VS stable, no pain, and no SOB. PT. understood discharge plans of why she is going [facility], Pt. given packet with all educational material inside. DC'D IV x1 on right hand, intact, no redness, no pain stated by Pt. I called [facility] and did transfer report with RN.
--- NOTE | 2016-05-12 14:15 | PCM.DC.MED ---
Discharge Summary Date of Service May 12, 2016 Dates of Hospitalization Date of Hospital Admission May 09, 2016 at 17:46 Date of Discharge: May 12, 2016 Providers: Admitting Physician: Mark Price MD Primary Care Physician: Henrry Duke DO Attending Physician: Mark Price MD Diagnosis at Time of Discharge Diagnosis at Time of Discharge 1. CVA (lacunar) with right hemiparesis, improving 2. Hypertension 3. Hyperlipidemia 4. Hypothyroidism Consultations Dr. price, neurology Procedures XRay, CTs & MRIs CT BRAIN (TPA) ([id number]) INDICATIONS: SLURRED SPEECH TECHNIQUE: Noncontrast 4.5 mm thick angled axial sections acquired from the foramen magnum to the vertex, with coronal reformats. COMPARISON: None. FINDINGS: Image quality: Excellent. CSF spaces: Basal cisterns are patent. No extra-axial fluid collections. The ventricles are symmetric in size and shape. Brain: No intracranial bleeds or masses. There is cerebral volume loss for age , with resultant ventricular and sulcal prominence. 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 There are periventricular and deep white matter chronic small vessel ischemic changes. There is intracranial internal carotid artery atherosclerosis. Skull and face: Calvarium and visualized facial bones appear intact, without suspicious lesions. Sinuses: Visualized sinuses and mastoids are clear. IMPRESSION: There is no acute intracranial abnormality. Atrophic changes are present. There is an old small lacune in the right thalamus. This study fulfills neurological imaging criteria for inclusion or exclusion of acute stroke therapies based on available published neurological guidelines. Dictated by: Zaire Mcginnis M.D. on 05/09/2016 at 16:18 Dr. Tamez is aware of these findings. CT BRAIN WITHOUT CONTRAST ([id number]) INDICATIONS: head feeling "heavy" with TPA TECHNIQUE: Noncontrast 4.5 mm thick angled axial sections acquired from the foramen magnum to the vertex, with coronal reformats. COMPARISON: [facility], CT, BRAIN (TPA), 05/09/2016, 16:09. FINDINGS: Image quality: Excellent. CSF spaces: Basal cisterns are patent. No extra-axial fluid collections. The ventricles are symmetric in size and shape. Brain: No intracranial bleeds or masses. There is cerebral volume loss for age , with resultant ventricular and sulcal prominence. There are periventricular and deep white matter chronic small vessel ischemic changes. There is intracranial internal carotid artery atherosclerosis. Skull and face: Calvarium and visualized facial bones appear intact, without suspicious lesions. Sinuses: Visualized sinuses and mastoids are clear. IMPRESSION: No acute intracranial abnormality. Specifically no evidence for blood. No change is seen since the study at 1609 hrs. of 05/09/16. Dictated by: Zaire Mcginnis M.D. on 05/09/2016 at 17:20 ECG 12 Lead Normal sinus rhythm Cardiac Echo Impression 2-D echo with bubble was revealing normal ventricular function and negative bubble. Other Diagnostics Carotid duplex ultrasound less than 50% carotid stenoses. Brief History This is a 81-year-old female who noticed onset of right-sided weakness and difficulty speaking at 3:45 PM this afternoon. Her grandson lives with her and when he heard her trying to speak he called 911 immediately. She was taken immediately to the emergency department where a CT scan was negative for hemorrhage and she underwent TPA infusion. Her symptoms resolved with treatment and she underwent a follow-up CT scan in the next hour or so that was again stable. She has never had a stroke before but she does have a history of hypertension and hyperlipidemia. Hospital Course 1. Acute CVA with right hemiparesis. POA. Status post thrombolytics with significant improvement but a residual right hemiparesis right leg greater than arm. We will start aspirin 325 mg daily. Try duplex ultrasounds negative for greater than 50% stenosis. MRI reveals a right internal capsule lacunar infarct. The plan is to continue with aspirin, add atorvastatin, physical therapy and's occupational therapy evaluations. We will then look at possibly inpatient rehabilitation referral. 2. Chronic hypothyroidism. POA. Continue levothyroid. 3. Chronic hyperlipidemia, POA. Continue statin. 4. Chronic GERD. POA. Continue omeprazole. Patient's full resuscitation. She is admitted inpatient status, anticipated length of stay of over 2 nights given medical complexity of her care. DVT prophylaxis. Hospital course. This patient presented with a right hemiparesis. She was felt to meet criteria for tPA was given TPA in the emergency department after patellar neuro consultation with [facility]. The patient did well after TPA and she had some improvement however hemiparesis. Her arm improvement in her leg initially. Serial CT scans were negative for hemorrhage. She was transferred to the CCU on the post TPA protocol. She did well. She initially had mild hypertension but this did improve. Duplex ultrasound revealed less than 50% stenosis. MRI revealed a right lacunar infarct likely related to hypertension and dyslipidemia. He was started on aspirin as a primary antiplatelet agent. The day of discharge she was doing well. She declined inpatient rehabilitation services but instead preferred nursing home facility services for rehabilitation. She did show fairly rapid improvement of her right hemiparesis. Exam Vital Signs (Last) Date Time Temp Pulse Resp B/P Pulse Ox O2 Delivery O2 Flow Rate FiO2 05/12/16 12:49 36.6 104 16 126/84 98 Room Air 05/11/16 08:20 1.00 Exam Alert oriented no acute distress Neck is supple. Lungs are clear with normal effort. Heart is regular without murmur Abdomen soft. Extremities are free of edema. Neuro :She has a mild right facial droop and a mild right hemiparesis of the arm and about 4+ out of 5. She can lift the arm up into the arm above her head and even touch her nose with her finger but has a fair amount of ataxia. She can lift her leg off the bed today which is a big improvement from the day before. She is able to stand with assist with physical therapy. Test 05/09/16 16:10 05/09/16 17:11 05/10/16 13:45 05/12/16 08:10 Neutrophils (%) (Auto) 62.0% (40-74) Lymphocytes (%) (Auto) 26.3% (14-46) Monocytes (%) (Auto) 10.8% (4-12) Eosinophils (%) (Auto) 0.5% (0-5) Basophils (%) (Auto) 0.2% (0-3) Prothrombin Time 9.8sec (8.1-12.5) Prothromb Time International Ratio 0.92ratio Activated Partial Thromboplast Time 28.0sec (22.8-33.0) Troponin T < 0.010ug/L (0.0-0.011) Urine Color Yellow (YELLOW) Urine Appearance Clear (CLEAR,HAZY) Urine pH 7.0 (5.0-8.0) Urine Specific [place] 1.010 (1.003-1.035) Urine Protein Negativemg/dL (NEG,TRACE) Urine Glucose (UA) Negativemg/dL (NEGATIVE) Urine Ketones Negativemg/dL (NEGATIVE) Urine Occult Blood Small (NEGATIVE) Urine Nitrite Negative (NEGATIVE) Urine Bilirubin Negative (NEGATIVE) Urine Urobilinogen Normalmg/dL (NORMAL) Urine Leukocyte Esterase Negative (NEGATIVE) Urine RBC 3-10/hpf (0-2) Urine WBC 0-5/hpf (0-5) Urine Epithelial Cells Occasional/hpf (NONE-MOD) Urine Crystals None seen (NONE SEEN) Urine Bacteria None/hpf (NONE-FEW) Urine Hyaline Casts None/lpf (NONE) Urine Granular Casts None seen (NONE SEEN) Urine Waxy Casts None seen (NONE SEEN) Urine Red Blood Cell Casts None seen (NONE SEEN) Urine White Blood Cell Casts None seen (NONE SEEN) Urine Mucus None seen (None Seen) Urine Trichomonas None seen (NONE SEEN) Urine Yeast None (NONE SEEN) Urinalysis Comment None Urine Culture Reflexed Not indicated Hemoglobin A1c 5.7% (4.8-5.6) Triglycerides Level 121mg/dL (0-149) Cholesterol Level 189mg/dL (100-199) LDL Cholesterol, Calculated 84.800mg/dL (0-99) VLDL Cholesterol 24.200mg/dL HDL Cholesterol 80mg/dL (>39) Cholesterol/HDL Ratio 2.36 (0.0-4.4) White Blood Count 7.7th/mm3 (3.8-10.1) Red Blood Count 4.46mil/mm3 (3.90-5.20) Hemoglobin 13.9g/dL (12.0-15.6) Hematocrit 42.0% (35.0-46.0) Mean Corpuscular Volume 94.2fL (81-100) Mean Corpuscular Hemoglobin 31.2pg (27.0-35.0) Mean Corpuscular Hemoglobin Concent 33.1% (32.0-37.0) Red Cell Distribution Width 13.0% (12.3-15.4) Platelet Count 283bil/L (150-400) Sodium Level 139mEq/L (134-144) Potassium Level 4.5mEq/L (3.5-5.2) Chloride Level 101mEq/L (97-108) Carbon Dioxide Level 26mmol/L (18-29) Blood Urea Nitrogen 17mg/dL (8-27) Creatinine 0.56mg/dL (0.57-1.00) Estimat Glomerular Filtration Rate 148mL/min (>59) Glucose Level 98mg/dL (60-99) Calcium Level 9.3mg/dL (8.5-10.1) Total Bilirubin 0.5mg/dL (0.0-1.2) Aspartate Amino Transf (AST/SGOT) 23U/L (0-50) Alanine Aminotransferase (ALT/SGPT) 20U/L (0-32) Alkaline Phosphatase 168U/L (25-165) Total Protein 6.8g/dL (6.4-8.4) Albumin 3.7g/dL (3.4-5.0) Discharge Medications Discharge Medications Aspirin (Aspirin) 81 Mg Tablet 81 MG PO DAILY Prescribed by: LIO CHIN MD Atorvastatin (Lipitor) 40 Mg Tablet 40 MG PO DAILY Prescribed by: LIO CHIN MD Levothyroxine (Levothyroxine) 50 Mcg Tablet 50 MCG PO DAILY Prescribed by: LIO CHIN MD Omeprazole (Omeprazole) 20 Mg Tablet.dr 40 MG PO BID Prescribed by: LIO CHIN MD Tolterodine Tartrate ER (Tolterodine Tartrate ER) 4 Mg Capsule 4 MG PO DAILY Prescribed by: LIO CHIN MD As needed Acetaminophen (Acetaminophen) 500 Mg Tablet 1,000 MG PO TID PRN PRN For Pain ( Reported) Bismuth Subsalicylate (Pepto-Bismol) 262 Mg Tab.chew 262-1,048 MG PO PRN PRN PRN For Dyspepsia or Heartburn (Reported) Calcium Carbonate (Calcium Carbonate) 300 Mg Calcium (750 Mg) Tab.chew 300 MG PO PRN For Dyspepsia or Heartburn (Reported) Nitroglycerin SL (Nitroglycerin SL) 0.4 Mg Tab.subl 0.4 MG SL Q5MIN PRN PRN For Chest Pain (Reported) Repeat every 5 minutes, up to 3 tablets Followup Plan Disposition: [facility] facility, [facility]. Discharge Diet: Heart Healthy Discharge Activity: Other (Per PT and OT) Follow-up with PCP in: 2 weeks Time spent 40 minute Lio Chin MD May 12, 2016 14:15
== END 2016-05-12 13:15 | DRG 62 ==
LOC: SED 15:59 → EDBD 15:59 → CCU 17:46 → PCC 05-10 18:38
PROVIDERS: ADMIT Psychiatry & Neurology Neurology; ATTEND Family Medicine
DX: I63.531 Cerebral infarction due to unspecified occlusion or stenosis of right posterior cerebral artery (principal); I69.351 Hemiplegia and hemiparesis following cerebral infarction affecting right dominant side; E03.9 Hypothyroidism, unspecified; E78.5 Hyperlipidemia, unspecified; K21.9 Gastro-esophageal reflux disease without esophagitis; I10 Essential (primary) hypertension; Z87.891 Personal history of nicotine dependence

== ENCOUNTER 2016-07-30 08:58 | Observation (INO) | payer MEDICARE, OTHER ==
[~2016-07-30] VITALS: Ht 167.6 cm; Wt 78.6 kg
[~2016-07-30 08:58] MED LIST changes: +ASPI-973 PO; +LIP40 PO; -SIMV20TA4 PO
--- NOTE | 2016-07-30 09:10 | ED.REPORT ---
HPI-General Illness Date of Service Jul 30, 2016 ED Provider: Anu Pedro MD An 81 year old female with a history of hip replacement presents to the ED complaining of pain in her right buttocks after having fallen earlier today. Per Nurse, the patient normally uses a walker and lost her balance. The patient 's daughter reports that the patient has experienced hematuria and episodes of sharp upper back/ chest pain since April, and yesterday was looking pale and complaining that she was not feeling well. The patient never had a urine sample taken. The patient reports that they are not experiencing any back pain right now. Nursing Notes Stated Complaint: GROUND LEVEL FALL Nursing Notes Reviewed: Yes Allergies: Coded Allergies: iodine (Verified Allergy, Unknown, 04/17/16) Scheduled Amlodipine (Amlodipine) 5 Mg Tablet 5 MG PO DAILY Aspirin (Aspirin) 81 Mg Tablet 81 MG PO DAILY Atorvastatin (Lipitor) 40 Mg Tablet 40 MG PO DAILY Levothyroxine (Levothyroxine) 50 Mcg Tablet 50 MCG PO DAILY Omeprazole (Omeprazole) 20 Mg Capsule.dr 20 MG PO BID Tolterodine Tartrate ER (Tolterodine Tartrate ER) 4 Mg Capsule 4 MG PO DAILY Scheduled PRN Acetaminophen (Acetaminophen) 500 Mg Tablet 1,000 MG PO TID PRN PRN For Pain Bismuth Subsalicylate (Pepto-Bismol) 262 Mg Tab.chew 262-1,048 MG PO PRN PRN PRN For Dyspepsia or Heartburn Calcium Carbonate (Calcium Carbonate) 300 Mg Calcium (750 Mg) Tab.chew 300 MG PO QID PRN PRN For Dyspepsia or Heartburn Nitroglycerin SL (Nitroglycerin SL) 0.4 Mg Tab.subl 0.4 MG SL Q5MIN PRN PRN For Chest Pain Repeat every 5 minutes, up to 3 tablets Tramadol (Tramadol) 50 Mg Tablet 50 MG PO QID PRN PRN For Pain General Time Seen by MD: 09:09 Chief Complaint Other (right hip pain.) Hx Obtained From: Patient, EMS Arrived By: Ambulance Sudden in Onset?: Yes Onset Occurred: 1 - 4 hours ago Symptom Duration: Since onset Severity: Current: Moderate Severity: Maximum: Moderate Recent Healthcare: No recent doctor visit Similar Sx Previous: No Past Medical History Past Medical History Notes: Dr. Duke admitted 04/16 for Stroke Past Medical History Angina Hypothyroidism Kidney stones Reports digestion issues. Reports: GERD, Hyperlipidemia, Hypertension, Stroke Past Surgical History right hip hemiarthroplasty kidney stone removal hip replacement 6-7 years ago, and hip surgery 18 months ago. Reports: Hysterectomy Smoking History Former Smoker Social History Alcohol Use: "Social" Other Social History: Good social support, Local resident Ambulatory Status Walker Review of Systems Sharp upper back pain present since April. Full Review of Systems Constitutional: Denies: Fever GI: Denies: Diarrhea Musculoskeletal: Reports: Extremity pain (Right hip pain. ) Complete sys rev & neg: except as marked. Physical Exam Vital Signs Vital Signs Date Time Temp Pulse Resp B/P Pulse Ox O2 Delivery O2 Flow Rate FiO2 07/30/16 09:12 36.1 71 18 142/62 99 Room Air Initial VS: Reviewed Respiratory: Breath sounds normal, Clear to auscultation, No respiratory distress Cardiovascular: Regular rate & rhythm, Heart sounds normal, Intact distal pulses Neurologic: Alert, Oriented, Nonfocal General/Constitutional: Awake, Alert (Patient is appropriate. ) We attempted to mobilize patient to see if they could handle pain management at home, and the patient cannot even sit up. Patient is afebrile. Head / Eyes: Atraumatic, Normocephalic, PERRL, EOMI Respiratory / Chest: Breath sounds NL, No respiratory distress, No rales, No rhonchi, No wheezing Patient does not have any sternal or chest tenderness with AP compression. Abdomen: Soft Back: Non-tender (No T-spine or Lumbar spine tenderness. ) Upper Extremities Upper Extremity / MS: No swelling, No edema Wrist / Hand: No swelling, No edema Lower Extremity / Pelvis / MS: Neurologic intact, Vascular intact Signifigant right hip and pelvic tenderness with any movement. Skin: Warm (Skin is well perfused.), Dry No brusing. Interpretation & Diagnostics Lab Results Interpretation Result Diagram: 07/31/16 0840 07/31/16 0840 Test 07/30/16 09:00 07/30/16 11:21 Hold Purple Top Tube Received (Received) Hold Blue Top Tube Received (Received) Troponin T < 0.010ug/L (0.0-0.011) Lipase 32U/L (13-60) Procalcitonin 0.13ng/mL (0.00-0.08) Hold Red Top Tube Received (Received) Hold Jenner Top Tube Received (Received) Urine Color Dark yellow (YELLOW) Urine Appearance Slightly cloudy Urine pH 6.5 (5.0-8.0) Urine Specific [place] 1.015 (1.003-1.035) Urine Protein Negativemg/dL (NEG,TRACE) Urine Glucose (UA) Negativemg/dL (NEGATIVE) Urine Ketones Negativemg/dL (NEGATIVE) Urine Occult Blood Negative (NEGATIVE) Urine Nitrite Negative (NEGATIVE) Urine Bilirubin Small (NEGATIVE) Urine Ictotest Positive (Negative) Urine Urobilinogen 8mg/dL (NORMAL) Urine Leukocyte Esterase Small (NEGATIVE) Urine RBC 0-2/hpf (0-2) Urine WBC 0-5/hpf (0-5) Urine Epithelial Cells Occasional/hpf (NONE-MOD) Urine Crystals None seen (NONE SEEN) Urine Bacteria Many/hpf (NONE-FEW) Urine Hyaline Casts None/lpf (NONE) Urine Granular Casts None seen (NONE SEEN) Urine Waxy Casts None seen (NONE SEEN) Urine Red Blood Cell Casts None seen (NONE SEEN) Urine White Blood Cell Casts None seen (NONE SEEN) Urine Mucus None seen (None Seen) Urine Trichomonas None seen (NONE SEEN) Urine Yeast None (NONE SEEN) Urinalysis Comment None Urine Culture Reflexed Indicated ECG Interpretation Time: 12:44 Interpreted by: ED physician Normal ECG Interpretation: Normal rate, Normal sinus rhythm, No acute ischemic changes, Normal QRS, Normal axis, Normal intervals, No change from prior ECGs, Adequate tracing X-Ray Chest Interpretation Chest Xray Interpretation: IMPRESSION: Lung volumes are increased suggesting COPD, correlate with pulmonary functions test. Dictated by: Jenaro Abbasi RRA Interpreted: Casandra Hill MD on 07/30/2016 at 11:38 Transcribed by: YUSRA on 07/30/2016 at 11:38 Interpretation / Wet Read by: Interpret - Radiologist X-Ray Interpretation Xray Interpretation: PROCEDURE: X-RAY PELVIS W/LAT HIP (RT) ([id number]) IMPRESSION: 1. Acute on chronic fracture of the inferior right pubic ramus. 2. Nondisplaced fracture along the inferior aspect of the right acetabulum/pubic ramus junction. Dictated by: Aura Crisostomo M.D. on 07/30/2016 at 10:21 Approved by: Aura Crisostomo M.D. on 07/30/2016 at 10:31 Interpretation / Wet Read by: Interpret - Radiologist Xray Interpretation: PROCEDURE: X-RAY THORACIC SPINE, 2 VIEWS IMPRESSION: 1. Osteopenia without an acute compression fracture evident. 2. Mild to moderate degenerative changes of the thoracic spine. Dictated by: Carlos Akins M.D. on 07/30/2016 at 11:16 Approved by: Carlos Akins M.D. on 07/30/2016 at 11:18 CT Abd / Pelvis Interpretation IMPRESSION: 1. Status post cholecystectomy. 2. Common bile duct measures 1.6 cm in diameter which may related to prior cholecystectomy versus obstructive process. Please correlate with laboratory data to exclude biliary obstruction. 3. Bilateral nonobstructing renal stones. 4. Colonic diverticulosis without evidence diverticulitis. 5. Atherosclerosis including the visualized coronary rupture. 6. Small hiatal hernia. Dictated by: Casandra Hill MD, PhD on 07/30/2016 at 16:12 Approved by: Casandra Hill MD, PhD on 07/30/2016 at 16:21 Interpretation / Wet Read by: Gera w radiologist Re-Eval/Medical Decision Med Decision/Clinical Course Presents after mechanical fall this morning. Has right pelvic ring fracture, stable nonsurgical but she is in too much pain to even sit up over in bed and will need to be admitted for help with pain control and early mobilization. Her daughter reports that she has had recent hematuria and also notes that her upper back and chest pain has been more frequent recently. She was admitted in April 2016 for this atypical back and chest pain. No source was found and it did not appear to be pulmonary emboli nor cardiac. We will go ahead and cycle enzymes at this point and leave remainder of review to hospitalists. She was admitted in May with a stroke no recurrent evidence of stroke at this point Source of Hx: Old records, EMS Time of Eval: 11:13 Re-Evaluation/Progress Note: Rechecked patient. Explained broken pelvis diagbnosis. Explained that surgery is not needed. Explained plan for admission to the hospital and approximatley 6 weeks of physical therapy outside of the hospital. Consultation #1: Referral / Consult Name: Ian Gaitan MD Consulted With: Hospitalist Call Returned at: 11:55 Commercial Loan Administrator: Accepts admit Note: Discussed patient case with Dr. Gaitan who accepts patient admit. Consultation #2: Referral / Consult Name: CRISTÓBAL HARVEY MD Call Returned at: 12:42 Commercial Loan Administrator: Agrees with eval Note: Discussed patient case with Dr. Harvey, updated them about patient liver abnormalities, and plan to order Abdominal CT with Barium Contrast, due to patient iodine allergy. Counseled Regarding: Diagnosis, Lab results, Need for admission Discharge & Departure Primary Impression: Fracture of right inferior pubic ramus Disposition: ADMITTED TO HOSPITAL Discharge Condition All VS Reviewed: Yes Condition: Improved Referrals: Henrry Duke DO (PCP) [place] Attestation Portions of this note were transcribed by Sebastian Berg. I, Dr. Pedro personally performed the history, physical exam and medical decision-making; I reviewed and confirmed the accuracy of the information in the transcribed note. Signed by: Deo Conway, 07/30/2016 7181. copies to: Henrry Duke Shawna L MD Jul 30, 2016 09:10 Sebastian Berg Jul 30, 2016 09:11 Dictated by: Jenaro Abbasi [facility] Interpreted: Casandra Hill MD on 07/30/2016 at 11:38 Transcribed by: YUSRA on 07/30/2016 at 11:38 Interpretation / Wet Read by: Interpret - Radiologist X-Ray Interpretation Xray Interpretation: PROCEDURE: X-RAY PELVIS W/LAT HIP (RT) ([id number]) IMPRESSION: 1. Acute on chronic fracture of the inferior right pubic ramus. 2. Nondisplaced fracture along the inferior aspect of the right acetabulum/pubic ramus junction. Dictated by: Aura Crisostomo M.D. on 07/30/2016 at 10:21 Approved by: Aura Crisostomo M.D. on 07/30/2016 at 10:31 Interpretation / Wet Read by: Interpret - Radiologist Xray Interpretation: PROCEDURE: X-RAY THORACIC SPINE, 2 VIEWS IMPRESSION: 1. Osteopenia without an acute compression fracture evident. 2. Mild to moderate degenerative changes of the thoracic spine. Dictated by: Carlos Akins M.D. on 07/30/2016 at 11:16 Approved by: Carlos Akins M.D. on 07/30/2016 at 11:18 CT Abd / Pelvis Interpretation IMPRESSION: 1. Status post cholecystectomy. 2. Common bile duct measures 1.6 cm in diameter which may related to prior cholecystectomy versus obstructive process. Please correlate with laboratory data to exclude biliary obstruction. 3. Bilateral nonobstructing renal stones. 4. Colonic diverticulosis without evidence diverticulitis. 5. Atherosclerosis including the visualized coronary rupture. 6. Small hiatal hernia. Dictated by: Casandra Hill MD, PhD on 07/30/2016 at 16:12 Approved by: Casandra Hill MD, PhD on 07/30/2016 at 16:21 Interpretation / Wet Read by: Discussed w radiologist Re-Eval/Medical Decision Med Decision/Clinical Course Presents after mechanical fall this morning. Has right pelvic ring fracture, stable nonsurgical but she is in too much pain to even sit up over in bed and will need to be admitted for help with pain control and early mobilization. Her daughter reports that she has had recent hematuria and also notes that her upper back and chest pain has been more frequent recently. She was admitted in April 2016 for this atypical back and chest pain. No source was found and it did not appear to be pulmonary emboli nor cardiac. We will go ahead and cycle enzymes at this point and leave remainder of review to hospitalists. She was admitted in May with a stroke no recurrent evidence of stroke at this point Source of Hx: Old records, EMS Time of Eval: 11:13 Re-Evaluation/Progress Note: Rechecked patient. Explained broken pelvis diagbnosis. Explained that surgery is not needed. Explained plan for admission to the hospital and approximatley 6 weeks of physical therapy outside of the hospital. Consultation #1: Referral / Consult Name: Ian Gaitan MD Consulted With: Hospitalist Call Returned at: 11:55 Commercial Loan Administrator: Accepts admit Note: Discussed patient case with Dr. Gaitan who accepts patient admit. Consultation #2: Referral / Consult Name: CRISTÓBAL HARVEY MD Call Returned at: 12:42 Commercial Loan Administrator: Agrees with eval Note: Discussed patient case with Dr. Harvey, updated them about patient liver abnormalities, and plan to order Abdominal CT with Barium Contrast, due to patient iodine allergy. Counseled Regarding: Diagnosis, Lab results, Need for admission Discharge & Departure Primary Impression: Fracture of right inferior pubic ramus Disposition: ADMITTED TO HOSPITAL Discharge Condition All VS Reviewed: Yes Condition: Improved Referrals: Henrry Duke DO (PCP) Deo Attestation Portions of this note were transcribed by Sebastian Berg. I, Dr. Pedro personally performed the history, physical exam and medical decision-making; I reviewed and confirmed the accuracy of the information in the transcribed note. Signed by: Deo Conway, 07/30/2016 1220. copies to: Henrry Duke Shawna L MD Jul 30, 2016 09:10 Sebastian Berg Jul 30, 2016 09:11
[2016-07-30 09:12] VITALS: BP 142/62; PULSE 71; RESP 18; O2SAT 99
[2016-07-30] MEDS ORDERED: Ondansetron 2 mg/mL 2 mL Inj IVPUSH PRN (09:30)
[2016-07-30] MEDS: HYDROmorphone 0.5 mg/0.5 mL iSecure Syringe IVPUSH PRN ×3 (10:28→15:34)
--- NOTE | 2016-07-30 10:33 | DRSVH ---
PROCEDURE: X-RAY PELVIS W/LAT HIP (RT) ([id number]) INDICATIONS: hip pain after fall TECHNIQUE: AP pelvis and lateral view of the right hip acquired. COMPARISON: [facility], CT, KUB - CT (ABD/PEL W/O CONT), 03/16/2015, 20:52. [facility], CR, HIP COMP MIN 2VW (RT), 01/26/2011, 11:06. [facility], CR, HIP COMP MIN 2VW (RT), 2, 14:28. FINDINGS: Bones: Patient is status post right hip arthroplasty, with hardware components in expected positions . The hip joint appears congruent. There is an acute on chronic fracture in the inferior right pubic ramus. In addition, there is a nondisplaced fracture along the inferior aspect of the right acetabul ar/pubic ramus junction. Soft tissues: Overlying postoperative changes are noted. No suspicious soft tissue densities. IMPRESSION: 1. Acute on chronic fracture of the inferior right pubic ramus. 2. Nondisplaced fracture along the inferior aspect of the right acetabulum/pubic ramus junction. Dictated by: Aura Crisostomo M.D. on 07/30/2016 at 10:21 Approved by: Aura Crisostomo M.D. on 07/30/2016 at 10:31
[2016-07-30 11:30] LABS: BASOPHILS % (AUTO) 0.4 % (0-3); EOSINOPHILS % (AUTO) 1.4 % (0-5); MONOCYTES % (AUTO) 9.2 % (4-12); Mean Corpuscular Hemoglobin 30.5 pg (27.0-35.0); Mean Corpuscular Volume 94.9 fL (81-100); NEUTROPHILS % (AUTO) 41.5 % (40-74); Platelet Count 268 bil/L (150-400)
--- NOTE | 2016-07-30 11:38 | DRSVH ---
PROCEDURE: X-RAY CHEST ONE VIEW, PORTABLE ([id number]) INDICATIONS: pre op TECHNIQUE: One view of the chest was acquired. COMPARISON: None. FINDINGS: Surgical changes and devices: None. Lungs and pleura: No pleural effusions or pneumothorax. Lungs are clear. Lung volumes are increase d with flattening of the hemidiaphragms suggesting COPD. Mediastinum: Mediastinal contours appear normal. Heart size is normal. Bones and chest wall: No suspicious bony lesions. Overlying soft tissues appear unremarkable. IMPRESSION: Lung volumes are increased suggesting COPD, correlate with pulmonary functions test. Dictated by: Jenaro Abbasi [facility] Interpreted: Casandra Hill MD on 07/30/2016 at 11:38 Transcribed by: YUSRA on 07/30/2016 at 11:38 Approved by: Casandra Hill MD, PhD on 07/30/2016 at 16:36
[2016-07-30 11:56] LABS: TROPONIN T < 0.010 ug/L (0.0-0.011)
[2016-07-30] MEDS ORDERED: Alum-Mag Hydrox-Simeth 30 mL Suspension PO PRN (12:00)
[2016-07-30] MEDS ORDERED: Polyethylene Glycol (PEG) 17 Gm Powder PO PRN (12:00)
--- NOTE | 2016-07-30 12:19 | DRSVH ---
PROCEDURE: X-RAY THORACIC SPINE, 2 VIEWS INDICATIONS: fall, chest pain TECHNIQUE: 3 views of the thoracic spine were acquired. COMPARISON: [facility], CT, CT CHEST ABD WO CON, 04/17/2016, 23:36. FINDINGS: Bones: On the lateral views, the cervicothoracic junction is adequately visualized and the alignment through this region is within normal limits. The vertebral body heights are within normal limits thr oughout the thoracic spine without evidence to suggest acute compression fracture. The bone minerali zation is diffusely decreased. Age-appropriate mild to moderate degenerative changes of the thoracic spine are evident. Advanced de generative changes of the imaged cervical spine are not adequately characterized. Soft tissues: There is aortic atherosclerosis. There may be chronic lung changes. Otherwise, the charlene ged overlying soft tissues of the chest are within normal limits. IMPRESSION: 1. Osteopenia without an acute compression fracture evident. 2. Mild to moderate degenerative changes of the thoracic spine. Dictated by: Carlos Akins M.D. on 07/30/2016 at 11:16 Approved by: Carlos Akins M.D. on 07/30/2016 at 11:18
[2016-07-30] MEDS ORDERED: TRAM50TA2 PO (13:02)
[2016-07-30] MEDS ORDERED: OMEP20CA11 PO (13:02)
[2016-07-30] MEDS ORDERED: AMLO5TAB2 PO (13:02)
[2016-07-30 13:05] LABS: APPEARANCE,URINE SLIGHTLY CLOUDY (CLEAR,HAZY); COLOR,URINE DARK YELLOW (YELLOW); OCCULT BLOOD,URINE NEGATIVE (NEGATIVE); PH,URINE 6.5 (5.0-8.0)
[2016-07-30 13:06] VITALS: BP 133/76; PULSE 68; RESP 16
[2016-07-30 13:06] LABS: UROBILINOGEN,URINE 8 mg/dL (NORMAL)
[2016-07-30 13:08] VITALS: BP 155/83; PULSE 93; RESP 19; O2SAT 93
[2016-07-30 13:09] VITALS: PULSE 94
[2016-07-30 13:15] LABS: ICTOTEST,URINE POSITIVE (Negative)
--- NOTE | 2016-07-30 14:48 | NUR ---
ADMIT Patient received from the ED via a gurney. Transferred to the bed via a transfer board. Patient rated her pain on her R hip as 7/10. Patient did not want any pain medication at this time since she was just medicated prior to transfer to the floor. Denies nausea. No emesis noted. Denies SOB. Oriented to room, call light and bathroom. Patient placed on tele. Per cable television program director patient is on sinus rhythm with some PVC's. HR-90's.
--- NOTE | 2016-07-30 14:50 | PCM.HPMED ---
Subjective Date of Service Jul 30, 2016 Primary Provider: Admitting Physician: Primary Care Physician: Henrry Duke DO Attending Physician: Chief Complaint: Fall and pain in right buttock History of Present Illness: Patient was having coffee this morning and her daughter's house where she has been staying. She bent over to get something under counter lost her balance fell over and has had terrible pain since. She does report that she has been having episodes of upper back pain mid scapular intermittently but was somewhat was happening, it had not happened for quite some time but began in April. She is not experiencing that pain now. She describes that when it happens sometimes she wants to vomit one time she did not become better. It does not radiate anywhere it is not associated with exertion, is not associated with food , currently she is feeling all right as long as she does not move. Review of Systems: Gen.: No fevers chills weight loss weight gain Eyes: no visual disturbances or blurring vision HEENT: No nose/throat drainage, no pain in ears or throat, no hearing loss Lymph: No lymph nodes noted Cardiac: No chest pain, orthopnea, PND, palpitations , pedal edema or dyspnea on exertion Pulmonary: no cough, wheezing or bringing up of sputum GI: No anorexia nausea vomiting blood or black in the stool he says she vomited once and it helps but she does not save actually is associated with nausea : no dysuria hematuria urinary frequency or decrease in urine output Musculoskeletal: Joint swelling no joint pain +new muscle aches or back pain right hip and mid scapular is described as intermittent Neuro: No syncope, seizures no loss of consciousness no new focal weakness, numbness or tingling she has chronic right-sided issues and weakness even prior to her stroke Psychiatric: New new anxiety insomnia or depression Endocrine: No new heat or cold intolerances polyuria or polydipsia Hematology: No lymphadenopathy or easy bleeding or bruising noted skin: No new rashes, stasis dermatitis Allergies Coded Allergies: iodine (Verified Allergy, Unknown, 04/17/16) Home Medications Amlodipine (Amlodipine) 5 Mg Tablet 5 MG PO DAILY Aspirin (Aspirin) 81 Mg Tablet 81 MG PO DAILY Atorvastatin (Lipitor) 40 Mg Tablet 40 MG PO DAILY Levothyroxine (Levothyroxine) 50 Mcg Tablet 50 MCG PO DAILY Omeprazole (Omeprazole) 20 Mg Capsule.dr 20 MG PO BID Tolterodine Tartrate ER (Tolterodine Tartrate ER) 4 Mg Capsule 4 MG PO DAILY Scheduled PRN Acetaminophen (Acetaminophen) 500 Mg Tablet 1,000 MG PO TID PRN PRN For Pain Bismuth Subsalicylate (Pepto-Bismol) 262 Mg Tab.chew 262-1,048 MG PO PRN PRN PRN For Dyspepsia or Heartburn Calcium Carbonate (Calcium Carbonate) 300 Mg Calcium (750 Mg) Tab.chew 300 MG PO QID PRN PRN For Dyspepsia or Heartburn Nitroglycerin SL (Nitroglycerin SL) 0.4 Mg Tab.subl 0.4 MG SL Q5MIN PRN PRN For Chest Pain Repeat every 5 minutes, up to 3 tablets Tramadol (Tramadol) 50 Mg Tablet 50 MG PO QID PRN PRN For Pain PMH Angina, hyperlipidemia, hypertension. hypothyroidism, nephrolithiasis, gastroesophageal reflux disease, irritable bowel syndrome, PAST SURGICAL HISTORY: Status post right hip hemiarthroplasty, reportedly a right femur fracture, for which she does have a pin in place, kidney stone removal and hysterectomy. SOCIAL HISTORY: She lives with her grandson, who has been staying with her for several months. He is from [place]. Occasional alcohol. Good social support. Local resident. Former smoker. No recent smoking and no recreational drug use. She does drive. FAMILY HISTORY: Her parents were killed in a car accident when she was 18 months old. Her brother has hypothyroidism. Social History Hx Alcohol Use: No Hx Substance Use: No Hx Tobacco Use: No Smoking Status: Former Smoker Exam Vital Signs Vital Sign - Last Date Time Temp Pulse Resp B/P Pulse Ox O2 Delivery O2 Flow Rate FiO2 07/30/16 09:12 36.1 71 18 142/62 99 Room Air Exam Gen.- A+ O 3 no apparent distress. Heavyset white female lying in bed Eyes- open conjunctiva clear, pupils equal nonicteric Mouth- oral mucosa moist, no exudate ENT- ears normal, nose normal Neck- supple/trach midline CVS- RRR no murmur or gallop Lungs- CTA, no wheezes or rhonchi or sensory muscle usage GI- NABS/NT soft, generous pannus Musc- moving 4 no obvious deformity Neuro- cranial nerves II through XII intact to gross examination, nonfocal Skin- warm and dry, no rashes/lesions/wounds noted Psych- pleasant and appropriate, Lab and Diagnostics Result Diagram: 07/30/16 0900 X-Rays, CTs and MRIs CT abdomen/pelvis done for elevated LFTs 1. Status post cholecystectomy. 2. Common bile duct measures 1.6 cm in diameter which may related to prior cholecystectomy versus obstructive process. Please correlate with laboratory data to exclude biliary obstruction. 3. Bilateral nonobstructing renal stones. 4. Colonic diverticulosis without evidence diverticulitis. 5. Atherosclerosis including the visualized coronary rupture. 6. Small hiatal hernia Dictated by: Casandra Hill MD, PhD on 07/30/2016 at 16:12 PROCEDURE: X-RAY PELVIS W/LAT HIP (RT) ([id number]) 1. Acute on chronic fracture of the inferior right pubic ramus. 2. Nondisplaced fracture along the inferior aspect of the right acetabulum/pubic ramus junction. Dictated by: Aura Crisostomo M.D. on 07/30/2016 at 10:21 Xray Interpretation: PROCEDURE: X-RAY THORACIC SPINE, 2 VIEWS 1. Osteopenia without an acute compression fracture evident. 2. Mild to moderate degenerative changes of the thoracic spine. Chest Xray Interpretation: IMPRESSION: Lung volumes are increased suggesting COPD, correlate with pulmonary functions test. Dictated by: Jenaro Abbasi [facility] Interpreted: Casandra Hill MD on 07/30/2016 at 11:38 12-lead ECG 05/09/16 and currently reviewed by me . Sinus rhythm . When compared with ECG of 17-Apr-2016 21:46:35, . No significant change Assessment & Plan 81-year-old female who fell at home and has pubic ramus fracture that is nonsurgical incidentally found to have fairly significant transaminitis of undetermined origin. He describes a history of mid back pain intermittently that may or may not be associated with nausea and vomiting but no association with food has happened a few times the last 3-4 months. She no longer has her gallbladder showed cholelithiasis is much less likely. f/u LFTs in am order MRCP and/or GI consult if not improved/asx. #Pubic ramus fracture- - pain control, PT evaluation -From this perspective patient may be able to return home 07/31 -We will start routine Naprosyn 500 mg twice a day, gabapentin 300mg hs, tramadol 50mg tid + q6prn #Transaminitis- CT scan shows dilated CBD, we will follow up LFTs in the morning and if they are not resolving MRCP would be indicated versus GI consult first #HTN/lipids- -hold statin secondary to transaminitis -Continue amlodipine, add hydralazine 25 mg every 4 prn SBP>160 #Hypothyroidism-continue Levoxyl #GERD-patient on omeprazole at home continuing #Prophylaxis-DVT with SCDs, enoxaparin, GI continue PPI #Dispo- code she was at her daughter's house disposition to where she is going not clear. Time spent >60min Ian Gaitan MD Jul 30, 2016 11:59
--- NOTE | 2016-07-30 16:22 | DRSVH ---
PROCEDURE: CT ABDOMEN AND PELVIS WITHOUT CONTRAST ([id number]) INDICATIONS: elevated liver enzymes TECHNIQUE: After the administration of oral contrast, 5 mm thick sections acquired from the diaphragms to the sy mphysis. 5 mm coronal and sagittal reformats were performed. For radiation dose reduction, the foll owing was used: automated exposure control, adjustment of mA and/or kV according to patient size. COMPARISON: [facility], CT, KUB - CT (ABD/PEL W/O CONT), 03/16/2015, 20:52. [facility], CT, CT CHEST ABD WO CON, 04/17/2016, 23:36. FINDINGS: Image quality: Excellent. ABDOMEN: Lung bases: Scarring versus atelectasis noted in the lung bases bilaterally. Heart size is normal. At herosclerotic calcifications are noted in the visualized coronary vasculature. Solid organs: Liver and spleen are normal in size. Gallbladder is surgically absent. The common rubia e duct measures 1.6 cm in diameter which may be related to prior cholecystectomy, however correlation with laboratory data 6 is recommended to exclude biliary obstruction. Pancreas is normal in size. No adrenal nodules. Both kidneys are normal in size, without hydronephrosis. 6 mm nonobstructing lef t renal stone is noted. 3.8 cm exophytic left renal cyst is noted. 4 mm nonobstructing right renal st one is noted. Peritoneum and bowel: Small hiatal hernia is noted. Bowel loops demonstrate normal wall thickness and caliber. Numerous diverticuli noted in the colon without evidence of diverticulitis. No free fluid or air. Nodes and vessels: No retroperitoneal or mesenteric adenopathy by size criteria. Aorta and inferior vena cava are normal in size. Scattered atherosclerotic ossification is noted in the abdominal and p elvic vasculature. Miscellaneous: No ventral hernias. PELVIS: Genitourinary: Bladder wall thickness is normal. Miscellaneous: No inguinal hernias or adenopathy. Bones: No suspicious bony lesions. 1.9 cm in greatest dimension sclerotic lesion noted in the left i liac bone which is stable compared to prior examinations and likely represents a bone island. No vert ebral body compression fractures. Right hip arthroplasty noted. Degenerative disc disease and facet a rthropathy are noted. Chronic appearing rupture during fracture is noted. IMPRESSION: 1. Status post cholecystectomy. 2. Common bile duct measures 1.6 cm in diameter which may related to prior cholecystectomy versus obs tructive process. Please correlate with laboratory data to exclude biliary obstruction. 3. Bilateral nonobstructing renal stones. 4. Colonic diverticulosis without evidence diverticulitis. 5. Atherosclerosis including the visualized coronary rupture. 6. Small hiatal hernia. Dictated by: Casandra Hill MD, PhD on 07/30/2016 at 16:12 Approved by: Casandra Hill MD, PhD on 07/30/2016 at 16:21
--- NOTE | 2016-07-30 18:31 | PCM.HPMED ---
Subjective Date of Service Jul 30, 2016 Primary Provider: Admitting Physician: Ian Gaitan MD Primary Care Physician: Henrry Duke DO Attending Physician: Ian Gaitan MD Chief Complaint: Fall and pain in right buttock History of Present Illness: Patient was having coffee this morning and her daughter's house where she has been staying. She bent over to get something under counter lost her balance fell over and has had terrible pain since. She does report that she has been having episodes of upper back pain mid scapular intermittently but was somewhat was happening, it had not happened for quite some time but began in April. She is not experiencing that pain now. She describes that when it happens sometimes she wants to vomit one time she did not become better. It does not radiate anywhere it is not associated with exertion, is not associated with food , currently she is feeling all right as long as she does not move. Review of Systems: Gen.: No fevers chills weight loss weight gain Eyes: no visual disturbances or blurring vision HEENT: No nose/throat drainage, no pain in ears or throat, no hearing loss Lymph: No lymph nodes noted Cardiac: No chest pain, orthopnea, PND, palpitations , pedal edema or dyspnea on exertion Pulmonary: no cough, wheezing or bringing up of sputum GI: No anorexia nausea vomiting blood or black in the stool he says she vomited once and it helps but she does not save actually is associated with nausea : no dysuria hematuria urinary frequency or decrease in urine output Musculoskeletal: Joint swelling no joint pain +new muscle aches or back pain right hip and mid scapular is described as intermittent Neuro: No syncope, seizures no loss of consciousness no new focal weakness, numbness or tingling she has chronic right-sided issues and weakness even prior to her stroke Psychiatric: New new anxiety insomnia or depression Endocrine: No new heat or cold intolerances polyuria or polydipsia Hematology: No lymphadenopathy or easy bleeding or bruising noted skin: No new rashes, stasis dermatitis Allergies Coded Allergies: iodine (Verified Allergy, Unknown, 04/17/16) Home Medications Scheduled Amlodipine (Amlodipine) 5 Mg Tablet 5 MG PO DAILY Aspirin (Aspirin) 81 Mg Tablet 81 MG PO DAILY Atorvastatin (Lipitor) 40 Mg Tablet 40 MG PO DAILY Levothyroxine (Levothyroxine) 50 Mcg Tablet 50 MCG PO DAILY Omeprazole (Omeprazole) 20 Mg Capsule.dr 20 MG PO BID Tolterodine Tartrate ER (Tolterodine Tartrate ER) 4 Mg Capsule 4 MG PO DAILY Scheduled PRN Acetaminophen (Acetaminophen) 500 Mg Tablet 1,000 MG PO TID PRN PRN For Pain Bismuth Subsalicylate (Pepto-Bismol) 262 Mg Tab.chew 262-1,048 MG PO PRN PRN PRN For Dyspepsia or Heartburn Calcium Carbonate (Calcium Carbonate) 300 Mg Calcium (750 Mg) Tab.chew 300 MG PO QID PRN PRN For Dyspepsia or Heartburn Nitroglycerin SL (Nitroglycerin SL) 0.4 Mg Tab.subl 0.4 MG SL Q5MIN PRN PRN For Chest Pain Repeat every 5 minutes, up to 3 tablets Tramadol (Tramadol) 50 Mg Tablet 50 MG PO QID PRN PRN For Pain PMH Social History Hx Alcohol Use: No Hx Substance Use: No Hx Tobacco Use: No Smoking Status: Former Smoker Exam Vital Signs Vital Sign - Last Date Time Temp Pulse Resp B/P Pulse Ox O2 Delivery O2 Flow Rate FiO2 07/30/16 13:09 94 07/30/16 13:08 36.7 19 155/83 93 Room Air Exam Gen.- A+ O 3 no apparent distress. Eyes- open conjunctiva clear, pupils equal nonicteric Mouth- oral mucosa moist, no exudate ENT- ears normal, nose normal Neck- supple/trach midline CVS- RRR no murmur or gallop Lungs- CTA GI- NABS/NT soft Musc- moving 4 no obvious deformity Neuro- cranial nerves II through XII intact to gross examination, nonfocal Skin- warm and dry, no rashes/lesions/wounds noted Psych- pleasant and appropriate, Lab and Diagnostics Result Diagram: 07/30/16 0900 07/30/16 0900 X-Rays, CTs and MRIs PROCEDURE: X-RAY PELVIS W/LAT HIP (RT) ([id number]) 1. Acute on chronic fracture of the inferior right pubic ramus. 2. Nondisplaced fracture along the inferior aspect of the right acetabulum/pubic ramus junction. Dictated by: Aura Crisostomo M.D. on 07/30/2016 at 10:21 Xray Interpretation: PROCEDURE: X-RAY THORACIC SPINE, 2 VIEWS 1. Osteopenia without an acute compression fracture evident. 2. Mild to moderate degenerative changes of the thoracic spine. Chest Xray Interpretation: IMPRESSION: Lung volumes are increased suggesting COPD, correlate with pulmonary functions test. Dictated by: Jenaro Abbasi RRA Interpreted: Casandra Hill MD on 07/30/2016 at 11:38 12-lead ECG 05/09/16 and currently reviewed by me . Sinus rhythm . When compared with ECG of 17-Apr-2016 21:46:35, . No significant change Assessment & Plan VTE Mechanical Devices: Intermittant Pneumatic CD Ian Gaitan MD Jul 30, 2016 18:31
[2016-07-30] MEDS: Pantoprazole 40 mg ER24 Tablet PO SCH (20:05)
[2016-07-30] MEDS: Senna-Docusate 8.6-50 mg Tablet PO SCH (20:06)
[2016-07-30 20:24] VITALS: BP 139/77; PULSE 86; RESP 20; O2SAT 94
--- NOTE | 2016-07-30 22:36 | NUR ---
INCONTINENT: Pt. has been resting in bed with no c/o discomfort. She called for the bedpan stated she wanted to have a BM, placed in bedpan but pt. already was incontinent of large urine. Incontinent brief on. Pt. passed flatus but no BM at this time. Bing care done. Incontinent care done. C/o pain 9/10 while turning and placing bedpan, given 5 mg of Roxicodone. Pt. states if she doesn't move, it doesn't hurt. A & O, VSS, pleasant and cooperative with care.
[2016-07-31] VITALS (8 sets, daily range): BP systolic 113–133; BP diastolic 65–77; PULSE 73–102; RESP 16–20; O2SAT 92–98
--- NOTE | 2016-07-31 08:40 | PCM.PNMED ---
Subjective Date of Service Jul 31, 2016 Subjective 07/30 - Patient was having coffee this morning and her daughter's house where she has been staying. She bent over to get something under counter lost her balance fell over and has had terrible pain since. She does report that she has been having episodes of upper back pain mid scapular intermittently but was somewhat was happening, it had not happened for quite some time but began in April. She is not experiencing that pain now. She describes that when it happens sometimes she wants to vomit one time she did not become better. It does not radiate anywhere it is not associated with exertion, is not associated with food, currently she is feeling all right as long as she does not move. S: denies sob/cp/f/c - does admit she has some chronic indigestion, no assoc with food - x yrs. does note hx of upper back pain iwht nausea intermittently - 1 q 3mos on avg - takes H2 pete at home. no home pain meds - last BM 2 days ago - intermittent uppder back pain, nonexertional, no hx of CAD, nl stress in 2009 - no tob use (hx of 10pk yr quit 50 yrs ago) Exam Vital Signs Vital Sign - Last Date Time Temp Pulse Resp B/P Pulse Ox O2 Delivery O2 Flow Rate FiO2 07/31/16 05:36 36.5 78 16 124/76 92 Room Air Intake and Output 07/30/16 07/30/16 07/31/16 Cumulative From/Thru 15:00 23:00 07:00 07/30/16 09:12 - 07/31/16 05:26 Intake Total 1020 ml 0 ml 1020 ml Output Total 700 ml 700 ml Balance 320 ml 0 ml 320 ml Intake Oral 1020 ml 1020 ml IV Total 0 ml 0 ml Output Urine Total 700 ml 700 ml Exam Gen.- A+ O 3 no apparent distress. Heavyset white female lying in bed Eyes- open conjunctiva clear, pupils equal nonicteric Mouth- oral mucosa moist, no exudate ENT- ears normal, nose normal Neck- supple/trach midline CVS- RRR no murmur or gallop Lungs- CTA, no wheezes or rhonchi or sensory muscle usage GI- NABS/NT soft, generous pannus Musc- moving 4 no obvious deformity Neuro- cranial nerves II through XII intact to gross examination, nonfocal Skin- warm and dry, no rashes/lesions/wounds noted Psych- pleasant and appropriate IVs and Medications Medications Reviewed: Medications were reviewed in detail Lab and Diagnostics Result Diagram: 07/30/16 0900 07/30/16 0900 X-Rays, CTs and MRIs CT abdomen/pelvis done for elevated LFTs 1. Status post cholecystectomy. 2. Common bile duct measures 1.6 cm in diameter which may related to prior cholecystectomy versus obstructive process. Please correlate with laboratory data to exclude biliary obstruction. 3. Bilateral nonobstructing renal stones. 4. Colonic diverticulosis without evidence diverticulitis. 5. Atherosclerosis including the visualized coronary rupture. 6. Small hiatal hernia Dictated by: Casandra Hill MD, PhD on 07/30/2016 at 16:12 PROCEDURE: X-RAY PELVIS W/LAT HIP (RT) ([id number]) 1. Acute on chronic fracture of the inferior right pubic ramus. 2. Nondisplaced fracture along the inferior aspect of the right acetabulum/pubic ramus junction. Dictated by: Aura Crisostomo M.D. on 07/30/2016 at 10:21 Xray Interpretation: PROCEDURE: X-RAY THORACIC SPINE, 2 VIEWS 1. Osteopenia without an acute compression fracture evident. 2. Mild to moderate degenerative changes of the thoracic spine. Chest Xray Interpretation: IMPRESSION: Lung volumes are increased suggesting COPD, correlate with pulmonary functions test. Dictated by: Jenaro Abbasi RRA Interpreted: Casandra Hill MD on 07/30/2016 at 11:38 12-lead ECG 05/09/16 and currently reviewed by me . Sinus rhythm . When compared with ECG of 17-Apr-2016 21:46:35, . No significant change Assessment & Plan 81-year-old female who fell at home and has pubic ramus fracture that is nonsurgical incidentally found to have fairly significant transaminitis of undetermined origin. He describes a history of mid back pain intermittently that may or may not be associated with nausea and vomiting but no association with food has happened a few times the last 3-4 months. She no longer has her gallbladder showed cholelithiasis is much less likely. f/u LFTs in am order MRCP and/or GI consult if not improved/asx. #Pubic ramus fracture- - pain control, PT evaluation -From this perspective patient may be able to return home 07/31 cont Naprosyn 500 mg twice a day, gabapentin 300mg hs, tramadol 50mg tid + q6prn , hold acetaminophen #Transaminitis- CT scan shows dilated CBD, we will follow up LFTs today - add GI consult, to consider MRCP pending todays labs #HTN/lipids- -hold statin secondary to transaminitis -Continue amlodipine, add hydralazine 25 mg every 4 prn SBP>160 #Hypothyroidism-continue Levoxyl #GERD-patient on omeprazole at home continuing #Prophylaxis-DVT with SCDs, enoxaparin, GI continue PPI #Dispo- code she was at her daughter's house disposition to where she is going not clear. Pain Evaluation: Adequate Pain Control GI Prophylaxis: Proton Pump Inhibitor VTE Prophylaxis: Sub-Q Enoxaparin VTE Mechanical Devices: Intermittant Pneumatic CD Resuscitation Status: CPR: Attempt Resuscitation Time spent 40 minutes of time spent with eval and mgmt Micky Barragan DO Jul 31, 2016 08:28
[2016-07-31] MEDS: Senna-Docusate 8.6-50 mg Tablet PO SCH ×2 (09:03→20:08)
[2016-07-31] MEDS: Tolterodine ER 4 mg ER24 Capsule PO SCH (09:03)
[2016-07-31] MEDS: Pantoprazole 40 mg ER24 Tablet PO SCH ×2 (09:05→20:07)
[2016-07-31 09:19] LABS: BASOPHILS % (AUTO) 0.3 % (0-3); EOSINOPHILS % (AUTO) 0.8 % (0-5); MONOCYTES % (AUTO) 8.8 % (4-12); Mean Corpuscular Hemoglobin 30.8 pg (27.0-35.0); Mean Corpuscular Volume 96.5 fL (81-100); Platelet Count 226 bil/L (150-400)
[2016-07-31 09:46] LABS: Bilirubin, Direct 0.6 mg/dL (0.0-0.3)
--- NOTE | 2016-07-31 12:24 | NUR ---
Evaluation completed. Please go to "Notes" then click on "Assessments and Notes" (bottom left corner of screen). Then select appropriate discipline tab on top of screen.
--- NOTE | 2016-07-31 12:47 | NUR ---
HILARIO explained and signed. Copy of HILARIO and Medicare self administered medication information provided to pt.
--- NOTE | 2016-07-31 13:45 | DRSVH ---
PROCEDURE: MR ABDOMEN MRCP INDICATIONS: Elevated liver function tests. TECHNIQUE: Coronal HASTE through the abdomen, axial 2-D FLASH in- and [id number], and breath-hold T2 FSE with fat saturation through the biliary system and pancreas. Oblique coronal and axial thin-slice HASTE, radial thick-slab HASTE centered on the extrahepatic bile ducts. Intravenous secretin: Not requested. COMPARISON: [facility], CT, CT ABD PELVIS WO CON, 07/30/2016, 16:02. FINDINGS: Image quality: There is mild motion artifact and inhomogeneous fat saturation. Pancreas and biliary system: The gallbladder is surgically absent. There is extrahepatic and mild ce ntral intrahepatic biliary ductal dilatation, with the common duct measuring up to 15 mm in diameter. There are multiple clustered small round filling defects in a linear distribution demonstrated in t he distal common bile duct consistent with choledocholithiasis. The pancreatic duct is normal in bryanna iber. No peripancreatic fat edema or fluid collections. Other solid organs: There is a small cyst in the right hepatic lobe. Spleen is normal in size. No a drenal nodules. There are bilateral renal cysts including parapelvic cysts on the right. Nodes and vessels: No retroperitoneal or mesenteric adenopathy by size criteria. Aorta and inferior vena cava are normal in size. Bowel and peritoneum: Visualized bowel loops are normal in caliber. No free fluid. Lung bases: No basal pleural effusions. Heart size is normal. Bones and soft tissues: No ventral hernias. Bone marrow is of normal overall signal. IMPRESSION: 1. Multiple small round clustered filling defects in the distal common bile duct consistent with cho ledocholithiasis. 2. Intra-and extra hepatic biliary ductal dilatation measuring up to 15 mm. Dictated by: Mani Simmons M.D. on 07/31/2016 at 13:43 Approved by: Mani Simmons M.D. on 07/31/2016 at 13:43
--- NOTE | 2016-07-31 15:15 | NUR ---
Social Work- Initial Assessment Data: See Initial Assessment. Pt is a 81 year old female admitted 07/30/16 under observation status for pelvic fracture per H&P. Pt's insurance is [employer] and [employer]. Pt's PCP is Henrry Duke DO. KARAN met with pt and daughter Shirin ([phone]) regarding discharge plan, SW role explained. Pt alert and oriented x3. Pt resides in [place] in a condo with her daughter where she remains independent with her ADLs. Pt's daughter is a VIROLOGY TEACHER. Pt uses a walker at [facility] and drives. Pt has a history of stroke. Pt has a history of skilled stay at [facility], no HH. Pt has no LTC or VA benefits. Pt has a living will, but no DPOA. Pt declined DPOA paperwork at this time. Pt to receive GI consultation. PT evaluated pt, recommending SNF at this time. Pt is observation, [facility] will not pay for SNF. SW informed pt of this. Pt states that private pay SNF is not an option. Pt to discharge home with daughter. SW will continue to follow for needs, R/O home with HH. Assessment: Pt who is independent at [facility]. Plan: PT recommending SNF at this time. Private pay SNF is not an option. Pt to discharge home with daughter. SW will continue to follow, R/O home with HH. DARLYN Bennett Addendum: 07/31/16 at 1520 by SHAMAR GREEN SS Amended: Links added.
--- NOTE | 2016-07-31 16:46 | CONS ---
[address] [address] CONSULTATION REPORT PATIENT: CAMERON JAMES : 1935 MR#: [id number] ADMIT: 07/30/2016 JOB ID: [id number] DATE OF SERVICE: 07/31/2016 REQUESTING PROVIDER: Micky Barragan MD. REASON FOR CONSULTATION: Abnormal liver chemistries. HISTORY OF PRESENT ILLNESS: This is an 81-year-old female with a recent stroke back on May 02. She recovered for the most part from said stroke. Was ultimately sent home from rehab but still had some balance challenges. She fell yesterday and came into the emergency department with pain in her right buttocks. The x-ray revealed an acute on chronic fracture of the inferior right pubic ramus along with a nondisplaced fracture along the inferior aspect of the right acetabulum/pubic ramus junction. This was considered inoperable and the patient was admitted to the hospitalist service for further care. They noted significantly deranged liver chemistries and requested GI consultation along with MRCP. The MRCP I have reviewed and definitely did demonstrates some biliary dilatation with filling defects in the distal duct suggestive of choledocholithiasis. Interestingly starting back in April, the patient recalls experiencing some upper back pain even radiating into the chest that occurred periodically and the last episode actually happened the night before she fell. She does have a remote history of cholecystectomy. ALLERGIES: IODINE. MEDICATIONS: The patient is regularly taking amlodipine, atorvastatin, aspirin, tramadol, omeprazole, levothyroxine, tolterodine, all long with p.r.n. Tums, Pepto-Bismol, tramadol, Tylenol, and nitro. Here in the hospital, she is receiving Lovenox injections daily and the aspirin has continued. PAST MEDICAL HISTORY: Angina, hyperlipidemia, hypertension, hypothyroidism, kidney stones, status post ECSW. Also reflux and irritable bowel. PAST SURGICAL HISTORY: She has had right hip hemiarthroplasty and she has had a pin in her right femur, Kidney stone intervention as above and a hysterectomy. SOCIAL HISTORY: Her daughter was at the bedside. She currently lives with her grandson. Takes occasional alcohol. Ex-smoker. FAMILY HISTORY: Noncontributory. REVIEW OF SYSTEMS: Hip fracture and associated pain as above. She has been told that this is inoperable and there were no specific instructions given to her. I spoke to Dr. Sanchez orthopedicsmooth about the possibility for ERCP and he advised that based on the x-ray report we should be okay with shifting her into the prone position as long as we do so with caution. Otherwise, review is as above. PHYSICAL EXAMINATION: Vital signs stable. Blood pressure 113/77, heart rate 102, afebrile. Breathing 16, 94% on room air. The patient was conversational, in no distress. Alert, oriented, appropriate. Her daughter was at the bedside. Skin was warm and dry. Heart regular. No peripheral pitting edema. Lungs clear bilaterally. Good respiratory effort. Abdomen was soft, nontender, nondistended. LABORATORY: The patient has demonstrated elevated alkaline phosphatase. Going back into May of this year and she was admitted yesterday with a bilirubin of 3.1, AST 421, ALT 443, alk phos 847. Today, bilirubin has fallen to 1.5, transaminases are down as is the alk phos. Lipase is normal at 32. IMAGING: The patient had a CAT scan, which demonstrated a 1.6 cm bile duct. MRCP was accomplished and confirmed the presence of some filling defects in the distal duct. The biliary tree was at about 15 mm. ASSESSMENT AND PLAN: This is an 81-year-old female with incidentally found choledocholithiasis in the face of acute pelvic fracture that is to be managed conservatively and nonoperatively. The patient has had a prior cholecystectomy. I discussed ERCP along with the risks including bleeding, perforation, need for emergency surgery, hemodynamic instability from sedation and the 5% chance of post ERCP pancreatitis. The patient is concerned that the last surgery she had back at [facility] about seven or eight years ago Resulted in her being sedated for about three days afterwards. We have requested the [facility] records for our anesthesiologist review in an effort to try and avoid reproducing the effects noted back then. The patient can be on a full liquid diet today. Nothing by mouth after midnight tonight. At present, I do not see any sign of cholangitis. White count was 6.6. CBC fairly unremarkable. I would like to have her aspirin and Lovenox injection held tomorrow morning. NOTE: This is a no-charge physician consultation. Please do not submit charges for this particular note today.
--- NOTE | 2016-07-31 17:24 | NUR ---
Pain Pain has been controlled with scheduled naproxen and 5mg Roxicodone. Pt tolerating using bed griggs and was up to the edge of the bed with PT. Care continues.
[2016-08-01] VITALS (14 sets, daily range): BP systolic 106–178; BP diastolic 64–88; PULSE 59–94; RESP 16–28; O2SAT 93–98
--- NOTE | 2016-08-01 06:09 | NUR ---
NPO/PAIN: Pt. has been NPO after midnight for MRCP today at 10 am. Medicated with 5 mg of Roxicodone x2 for hip pain. Voiding per bedpan, no BM tonight. IV infiltrated. New line placed.
[2016-08-01] MEDS ORDERED: Dexamethasone 4 mg/mL Inj ONE (06:31)
[2016-08-01] MEDS ORDERED: Neostigmine 1 mg/mL 10 mL Inj ONE (06:31)
[2016-08-01] MEDS ORDERED: Ondansetron 2 mg/mL 2 mL Inj ONE (06:31)
[2016-08-01] MEDS ORDERED: Glucagon 1 mg/mL Inj ONE (06:31)
[2016-08-01 07:08] LABS: BASOPHILS % (AUTO) 0.2 % (0-3); MONOCYTES % (AUTO) 10.1 % (4-12); Mean Corpuscular Hemoglobin 30.8 pg (27.0-35.0); NEUTROPHILS % (AUTO) 56.7 % (40-74); Platelet Count 191 bil/L (150-400)
--- NOTE | 2016-08-01 07:43 | PCM.PNMED ---
Subjective Date of Service Aug 01, 2016 Subjective no complaints, NPO now for ercp today given e/o choledocholithiasis on mrcp yesterday. no reports of cp/sob/f - holding asa/lovenox today Exam Vital Signs Vital Sign - Last Date Time Temp Pulse Resp B/P Pulse Ox O2 Delivery O2 Flow Rate FiO2 08/01/16 05:18 78 08/01/16 04:42 36.8 18 132/74 93 Room Air Intake and Output 07/31/16 07/31/16 08/01/16 Cumulative From/Thru 15:00 23:00 07:00 07/30/16 09:12 - 08/01/16 06:07 Intake Total 550 ml 1036 ml 50 ml 2656 ml Output Total 770 ml 800 ml 250 ml 2520 ml Balance -220 ml 236 ml -200 ml 136 ml Intake Oral 550 ml 1036 ml 50 ml 2656 ml IV Total 0 ml 0 ml 0 ml Output Urine Total 770 ml 800 ml 250 ml 2520 ml # Voids 2 2 # Bowel Movements 0 0 Exam Gen.- A+ O 3 no apparent distress. Heavyset white female lying in bed Eyes- open conjunctiva clear, pupils equal nonicteric Mouth- oral mucosa moist, no exudate ENT- ears normal, nose normal Neck- supple/trach midline CVS- RRR no murmur or gallop Lungs- CTA, no wheezes or rhonchi or sensory muscle usage GI- NABS/NT soft, generous pannus Musc- moving 4 no obvious deformity Neuro- cranial nerves II through XII intact to gross examination, nonfocal Skin- warm and dry, no rashes/lesions/wounds noted Psych- pleasant and appropriate IVs and Medications Medications Reviewed: Medications were reviewed in detail Lab and Diagnostics Result Diagram: 08/01/16 0645 07/31/16 0840 X-Rays, CTs and MRIs CT abdomen/pelvis done for elevated LFTs 1. Status post cholecystectomy. 2. Common bile duct measures 1.6 cm in diameter which may related to prior cholecystectomy versus obstructive process. Please correlate with laboratory data to exclude biliary obstruction. 3. Bilateral nonobstructing renal stones. 4. Colonic diverticulosis without evidence diverticulitis. 5. Atherosclerosis including the visualized coronary rupture. 6. Small hiatal hernia Dictated by: Casandra Hill MD, PhD on 07/30/2016 at 16:12 PROCEDURE: X-RAY PELVIS W/LAT HIP (RT) ([id number]) 1. Acute on chronic fracture of the inferior right pubic ramus. 2. Nondisplaced fracture along the inferior aspect of the right acetabulum/pubic ramus junction. Dictated by: uAra Crisostomo M.D. on 07/30/2016 at 10:21 Xray Interpretation: PROCEDURE: X-RAY THORACIC SPINE, 2 VIEWS 1. Osteopenia without an acute compression fracture evident. 2. Mild to moderate degenerative changes of the thoracic spine. Chest Xray Interpretation: IMPRESSION: Lung volumes are increased suggesting COPD, correlate with pulmonary functions test. Dictated by: Jenaro Abbasi RRA Interpreted: Casandra Hill MD on 07/30/2016 at 11:38 12-lead ECG 05/09/16 and currently reviewed by me . Sinus rhythm . When compared with ECG of 17-Apr-2016 21:46:35, . No significant change Assessment & Plan 81-year-old female who fell at home and has pubic ramus fracture that is nonsurgical incidentally found to have fairly significant transaminitis of undetermined origin. He describes a history of mid back pain intermittently that may or may not be associated with nausea and vomiting but no association with food has happened a few times the last 3-4 months. She no longer has her gallbladder showed cholelithiasis is much less likely. ERCP planned today with GI after MRCP 07/31 demonstrated choledocholithiasis #Choledocholithiasis -ERCP today with Dr. Wood -npo now--> LFTs 08/01 pending -no clinical e/o cholangitis #Pubic ramus fracture- -Pain control, PT evaluation -From this perspective patient may be able to return home 07/31 cont Naprosyn 500 mg twice a day, gabapentin 300mg hs, tramadol 50mg tid + q6prn , hold acetaminophen #Transaminitis- CT scan shows dilated CBD, we will follow up LFTs today - add GI consult, to consider MRCP pending todays labs #HTN/lipids- -hold statin secondary to transaminitis -Continue amlodipine, add hydralazine 25 mg every 4 prn SBP>160 #Hypothyroidism-continue Levoxyl #GERD-patient on omeprazole at home continuing #Prophylaxis-DVT with SCDs, enoxaparin (held for ercp), GI continue PPI #Dispo- pending Pain Evaluation: Adequate Pain Control GI Prophylaxis: Proton Pump Inhibitor VTE Prophylaxis: Sub-Q Enoxaparin VTE Mechanical Devices: Intermittant Pneumatic CD Resuscitation Status: CPR: Attempt Resuscitation Time spent 35 minutes spent with eval and mgmt Micky Barragan DO Aug 01, 2016 07:43
[2016-08-01 08:11] LABS: Bilirubin, Direct 0.4 mg/dL (0.0-0.3)
[2016-08-01] MEDS: Tolterodine ER 4 mg ER24 Capsule PO SCH (08:30)
[2016-08-01] MEDS: Pantoprazole 40 mg ER24 Tablet PO SCH ×2 (08:30→20:11)
[2016-08-01] MEDS: Senna-Docusate 8.6-50 mg Tablet PO SCH ×2 (08:30→20:12)
[2016-08-01] MEDS ORDERED: Lactated Ringer's 1,000 ML IV ONE (09:28)
--- NOTE | 2016-08-01 09:29 | PCM.HPANE ---
Patient Data Surgeon Admitting Provider:Ian Gaitan MD Attending Provider:Ian Gaitan MD Primary Care Physician:Henrry Duke DO Other Provider: Reason for Visit Pelvic Fracture, Upper Back Pain/Chest Pain PELVIC FRACTURE, UPPER BACK PAIN/CHEST PAIN Ht/WT & BMI Height (Feet): 5 Height (Inches): 6.00 Weight (Kilograms): 78.000 Body Mass Index 26.57 Allergies Coded Allergies: iodine (Verified Allergy, Unknown, 04/17/16) Past Anesthesia History Anesthesia History: Positive for:: Anesthesia Reactions (DIFFICULTY WAKING UP) , Denies:: Abnormal Airway, Difficult Intubation, Fam Anesthesia Reaction, Fam Malignant Hypertherm, Malignant Hyperthermia Diabetes History Hx Diabetes?: No MRSA MRSA: No Medications Active Scripts Aspirin 81 Mg Qfgxtc88 Mg PO DAILY #30 BOTTLE Ref 0 Prov:Lio Olsen MD 05/12/16 Atorvastatin (Lipitor)40 Mg Qilhal94 Mg PO DAILY #30 TABLET Ref 0 Prov:Lio Olsen MD 05/12/16 Levothyroxine 50 Mcg Vjrfdw80 Mcg PO DAILY #30 Prov:Lio Olsen MD 05/12/16 Tolterodine Tartrate ER 4 Mg Capsule4 Mg PO DAILY #30 CAPSULE Prov:Lio Olsen MD 05/12/16 Reported Medications Omeprazole 20 Mg Capsule.dr20 Mg PO BID 07/30/16 Amlodipine 5 Mg Tablet5 Mg PO DAILY 07/30/16 Tramadol 50 Mg Sbhnow19 Mg PO QID PRN For Pain 07/30/16 Acetaminophen 500 Mg Tablet1,000 Mg PO TID PRN For Pain 04/19/16 Calcium Carbonate 300 Mg Calcium (750 Mg) Tab.biao828 Mg PO QID PRN For Dyspepsia or Heartburn 04/19/16 Nitroglycerin SL 0.4 Mg Tab.subl0.4 Mg SL Q5MIN PRN For Chest Pain Repeat every 5 minutes, up to 3 tablets 01/29/16 Bismuth Subsalicylate (Pepto-Bismol)262 Mg Tab.sfwe506-9,048 Mg PO PRN PRN For Dyspepsia or Heartburn Ref 0 01/28/16 Discontinued Scripts Omeprazole 20 Mg Tablet.dr40 Mg PO BID #60 Prov:Lio Olsen MD 05/12/16 History History of ENT Problems?: No HEENT History: Denies:: Abnormal Airway Cataracts Difficult Intubation Dysphagia Hearing Problem Sinus Problem Denture Type: Partial- Upper Partial- Lower Hx of Heart Problems?: Yes Cardiovascular History: Positive for:: Chest Pain (DENIES CHEST PAIN AT THIS TIME.) Hypertension Denies:: AICD Atrial Fibrillation Cardiac Surgery Congestive Heart Failure Edema Heart Murmur Irregular Heartbeat Pacemaker Thrombophlebitis Valvular Heart Disease Hx of Respiratory Problem?: No Respiratory History: Denies:: Asthma COPD Chest Surgery Dyspnea Emphysema Hemoptysis Pneumonia Tuberculosis Hx Neurologic Problems?: Yes Neurological History: Positive for:: CVA (WITH HX OF R SIDED HEMIPARESIS ) Denies:: Alzheimer's Disease Dementia Dizziness Headaches Parkinson's Disease Seizures Hx of GI Problems?: Yes Gastrointestinal History: Positive for:: Gastroesphageal Reflux Heartburn Denies:: Diverticulitis Gastrointestinal Bleeding Hepatitis Hiatal Hernia Rectal Bleeding Hx of Problems?: Yes Genitourinary History: Positive for:: Kidney Stones Denies:: HX of Hemodialysis Urinary Tract Infection HX of Peritoneal Dialysis: No Female Hx: Denies:: Currently Endometriosis Pelvic Inflammatory Problems with Breasts? Hx Musculoskeletal Problems?: Yes Musculoskeletal History: Positive for:: Joint Replacement (R HEMIATHROPLASTY) Denies:: Back Injury Musculoskeletal Trauma Hx of Psycho/Social Problems?: No Psycho Social History: Denies:: Anxiety Bipolar Disorder Hx Depression Suicide Attempt Hx Surgeries?: No (HYSTERECTOMY, R HIP MERCY., KIDNEY STONE REMOVAL, GRACIE, APPY , R KNEE REP.) Hx Any Other Health Problems?: Yes Other History: Positive for:: Hospitalization (CVA) Thyroid Disease Denies:: Cancer Endocrine Disease History Blood Transfusions: Positive for:: Accept Blood Products? Blood Transfusions Denies:: Blood Transfuse Reaction Hx Diabetes: No Other Pertinent History: HX: OVERACTIVE BLADDER, HYPERLIPIDEMIA Hx Alcohol Use: NoHx Substance Use: No Smoking Status: Former Smoker Have You Smoked inLast 12 mo: NoApprox How Many Cigarettes/day: 1 PACK/DAY Stop/Bang Treated for Sleep Apnea?: No Do You Have a CPAP Machine?: No S-Snoring: Do You Snore Loudly: No T-Tired: feel tired, fatigued: No O-Obsered: Observed not breath: No P-Blood Pressure: treated: Yes B- Body Mass Index > 35 kg/m2: No A- Age over 50: Yes N- Neck Large Circumference: No G- Gender Male: No CIERA Total Score: 1 Risk Assessment Category Category 1A: Patient has history of documented sleep apnea, and HAS NOT received any narcotic, sedative or anesthesia administration during this stay. Category 1B: Patient has history of documented sleep apnea, and HAS received any narcotic , sedative or anesthesia administration during this stay Category 2: Patient has SUSPECTED Obstructive Sleep Apnea, and HAS received any narcotic , sedative or anesthesia administration during this stay. Category 3: Patient has SUSPECTED Obstructive Sleep Apnea and HAS NOT received narcotic, sedative or anesthesia administration during this stay. Category 4: Outpatient in Procedural Areas with known sleep apnea or who screen positive for High Risk via the STOP/BANG questionnaire. Exam Exam Vital Signs Vital Signs Date Time Temp Pulse Resp B/P Pulse Ox O2 Delivery O2 Flow Rate FiO2 08/01/16 08:26 81 08/01/16 05:18 78 08/01/16 04:42 36.8 78 18 132/74 93 Room Air Meds/Labs/Diagnostics Labs Test 07/30/16 09:00 07/30/16 11:21 08/01/16 06:45 Hold Purple Top Tube Received (Received) Hold Blue Top Tube Received (Received) Troponin T < 0.010ug/L (0.0-0.011) Lipase 32U/L (13-60) Procalcitonin 0.13ng/mL (0.00-0.08) Hold Red Top Tube Received (Received) Hold [place] Top Tube Received (Received) Urine Color Dark yellow (YELLOW) Urine Appearance Slightly cloudy Urine pH 6.5 (5.0-8.0) Urine Specific [place] 1.015 (1.003-1.035) Urine Protein Negativemg/dL (NEG,TRACE) Urine Glucose (UA) Negativemg/dL (NEGATIVE) Urine Ketones Negativemg/dL (NEGATIVE) Urine Occult Blood Negative (NEGATIVE) Urine Nitrite Negative (NEGATIVE) Urine Bilirubin Small (NEGATIVE) Urine Ictotest Positive (Negative) Urine Urobilinogen 8mg/dL (NORMAL) Urine Leukocyte Esterase Small (NEGATIVE) Urine RBC 0-2/hpf (0-2) Urine WBC 0-5/hpf (0-5) Urine Epithelial Cells Occasional/hpf (NONE-MOD) Urine Crystals None seen (NONE SEEN) Urine Bacteria Many/hpf (NONE-FEW) Urine Hyaline Casts None/lpf (NONE) Urine Granular Casts None seen (NONE SEEN) Urine Waxy Casts None seen (NONE SEEN) Urine Red Blood Cell Casts None seen (NONE SEEN) Urine White Blood Cell Casts None seen (NONE SEEN) Urine Mucus None seen (None Seen) Urine Trichomonas None seen (NONE SEEN) Urine Yeast None (NONE SEEN) Urinalysis Comment None Urine Culture Reflexed Indicated White Blood Count 8.1th/mm3 (3.8-10.1) Red Blood Count 4.29mil/mm3 (3.90-5.20) Hemoglobin 13.2g/dL (12.0-15.6) Hematocrit 41.2% (35.0-46.0) Mean Corpuscular Volume 96.0fL (81-100) Mean Corpuscular Hemoglobin 30.8pg (27.0-35.0) Mean Corpuscular Hemoglobin Concent 32.0% (32.0-37.0) Red Cell Distribution Width 14.0% (12.3-15.4) Platelet Count 191bil/L (150-400) Neutrophils (%) (Auto) 56.7% (40-74) Lymphocytes (%) (Auto) 29.9% (14-46) Monocytes (%) (Auto) 10.1% (4-12) Eosinophils (%) (Auto) 3.0% (0-5) Basophils (%) (Auto) 0.2% (0-3) Sodium Level 141mEq/L (134-144) Potassium Level 4.4mEq/L (3.5-5.2) Chloride Level 101mEq/L (97-108) Carbon Dioxide Level 27mmol/L (18-29) Blood Urea Nitrogen 15mg/dL (8-27) Creatinine 0.56mg/dL (0.57-1.00) Estimat Glomerular Filtration Rate 148mL/min (>59) Glucose Level 91mg/dL (60-99) Calcium Level 9.3mg/dL (8.5-10.1) Total Bilirubin 1.0mg/dL (0.0-1.2) Direct Bilirubin 0.4mg/dL (0.0-0.3) Aspartate Amino Transf (AST/SGOT) 71U/L (0-50) Alanine Aminotransferase (ALT/SGPT) 194U/L (0-32) Alkaline Phosphatase 592U/L (25-165) Total Protein 6.5g/dL (6.4-8.4) Albumin 3.4g/dL (3.4-5.0) Plan Impression Patient chart reviewed, patient interviewed and anesthestic plan with risks, benefits, and alternatives discussed, and informed consent obtained. Luis Enrique Burns MD Aug 01, 2016 09:28
--- NOTE | 2016-08-01 12:28 | DRSVH ---
PROCEDURE: X-RAY E.R.C. BILIARY DUCTS ([id number]) INDICATIONS: STONES TECHNIQUE: Fluoroscopic spot films were acquired by the gastroenterology service during ERCP procedu re. COMPARISON: [facility], CR, XR SURG FLOURO EA 30 MIN, 08/01/2016, 10:00. [facility], MR, MR ABD MRCP, 07/31/2016, 12:40. [facility], CT, CT ABD PELVIS WO CON, 017, 16:02. FINDINGS: Fluoroscopic spot images submitted for interpretation demonstrate sweeping of the common bi le duct with a balloon. Extrahepatic biliary ductal dilatation is present. There is a focal region of eccentric indentation involving the lateral aspect of the common bile duct. IMPRESSION: 1. Common bile duct sweeping. 2. Biliary ductal dilatation. 3. Focal region of indentation of the lateral aspect of the common bile duct; finding could represent neoplasm. Dictated by: Jael Carver M.D. on 08/01/2016 at 12:24 Approved by: Jael Carver M.D. on 08/01/2016 at 12:26
--- NOTE | 2016-08-01 12:49 | NUR ---
Post Op Pt back from PACU on 2 L via oxymask. SL. Denies pain or nausea. Resting comfortably in bed, family at bedside. Care continues.
[2016-08-01] MEDS ORDERED: Lactated Ringer's 1,000 ML IV SCH (12:54)
[2016-08-01] MEDS ORDERED: Ondansetron 2 mg/mL 2 mL Inj IVPUSH PRN (12:55)
[2016-08-01] MEDS ORDERED: MetoCLOpramide 5 mg/mL 2 mL Inj IVPUSH PRN (12:55)
--- NOTE | 2016-08-01 12:58 | PCM.ANEP1 ---
Post Anesthesia Phase 1 PACU Phase 1 Assessment Vital Signs Vital Signs Date Time Temp Pulse Resp B/P Pulse Ox O2 Delivery O2 Flow Rate FiO2 08/01/16 12:45 Supplement Oxygen 08/01/16 12:26 36.3 59 28 154/64 95 OxyMask 3 08/01/16 12:21 27 OxyMask 3 08/01/16 12:17 65 20 140/67 95 Nasal Cannula 3 08/01/16 12:10 72 18 140/66 94 Nasal Cannula 3 08/01/16 12:04 81 22 135/70 95 Nasal Cannula 3 08/01/16 11:58 36.0 87 16 133/70 95 Nasal Cannula 3 08/01/16 08:26 81 08/01/16 05:18 78 Level of Alertness: Awake, talking DUNLAP's with Equal Strength: Yes Pain: No Pain Scale Score: 3 Nausea or Vomiting: No Oxygen Delivery: Nasal Cannula Dermatome Level: Full Sensation Luis Enrique Burns MD Aug 01, 2016 12:58
--- NOTE | 2016-08-01 12:58 | PCM.ANEP2 ---
Post Anesthesia Evaluation ASA/CMS Post Anesthesia VS in Patient's Normal Range?: Yes Resp Stable; Airway Patent?: Yes CV Function & Hydration Stable: Yes Mental Status Recovered?: Yes Pain control Satisfactory?: Yes N/V Control Satisfactory?: Yes Luis Enrique Burns MD Aug 01, 2016 12:58
[2016-08-01] MEDS ORDERED: Propofol 10,000 mCg/mL 20 mL Inj ONE (16:31)
[2016-08-01] MEDS ORDERED: Ketamine 10 mg/mL 20 mL Inj ONE (16:31)
--- NOTE | 2016-08-01 18:46 | ENDO ---
[address] [address] ENDOSCOPY PROCEDURE PATIENT: CAMERON JAMES : 1935 MR#: [id number] ADMIT: 07/30/2016 JOB ID: [id number] PROCEDURE: Endoscopic retrograde cholangiopancreatography with biliary sphincterotomy and stone extraction (balloon). INDICATIONS: An 81-year-old female who was found incidentally to have abnormal liver chemistries and choledocholithiasis by MRCP. EQUIPMENT: Standard duodenoscope. SEDATION: General anesthesia with endotracheal intubation as provided by Dr. Luis Enrique Burns. COMPLICATIONS: None identified. PROCEDURE INFORMATION: After the risks and benefits were explained, written and verbal informed consent was obtained, the patient was placed into the prone position very carefully, given her recent fall and pelvic fractures. This was accomplished after the patient was anesthetized and intubated successfully. After positioning was deemed appropriate, the scope was introduced into the mouth through the bite block, and advanced under indirect visualization to the stomach. From there, under direct visualization, the scope was guided into the second portion of the duodenum. The major papilla was identified and appeared to be releasing a rodriguez-colored bile. Using an Olympus 20 mm sphincterotome, we advanced the wire. Initial wire angle appeared to be a pancreas. We did not inject the PD. The wire was withdrawn. We then found the biliary tree and advanced the wire deep into the intrahepatics. The sphincterotome was introduced and initial cholangiogram suggested the presence of a filling defect in the mid dilated biliary tree. We pursued a biliary sphincterotomy over the wire, which appeared generous and quite adequate with free-flowing rodriguez bile. We then swapped out the sphincterotome for a balloon-tipped stone extraction catheter with injection port below the balloon. Using the 8.5 mm setting, we tested the sphincterotomy and it easily came through at the 8.5 quentin. I did not engage any stones. We then distended the balloon up to 11.5 mm, from about the level of the cystic duct takeoff, and ultimately it came through at that setting at 11.5 mm but no stone was seen removed. We then inflated the balloon to 11.5, from high up in the CHD and with withdrawal, engaged a small perhaps 4-5 mm stone. We then went all the way up to the level of the hilum and increased the balloon up to 15 mm. We then swept the duct and ultimately delivered a large, mixed consistency, oblong stone that looked like it was perhaps 4 mm by about 15 mm in length. This fairly easily came through after we slightly deflated the balloon from the 15 mm setting. We then swept the duct multiple other times at both the 11.5 and 15 mm setting. We yielded at least one further stone fragment, but subsequent sweeps did not yield any further debris. We felt that visually there was no obvious retained stone debris remaining. With application of suction from the duodenum this yielded free-flowing contrast and bile. We therefore elected to terminate. the procedure at that point. The scope was withdrawn back into the stomach. Excess air and fluid removed. The scope was then withdrawn from the patient who tolerated the procedure well. Prior to completion of the procedure, a 100 mg indomethacin suppository was placed to prophylax against post-ERCP pancreatitis. The patient was ultimately extubated and transferred to the PACU in stable condition. FINDINGS: As above. Biliary tree was cannulated and appeared dilated. There was a filling defect apparent on initial contrast imaging. The sphincterotomy appeared to be generous and quite adequate. We swept the duct several times, and ultimately, delivered two small stone fragments and one large oblong stone. Subsequent sweeps did not yield any further debris or filling defects. I did not see any evidence of pus anywhere throughout. There did not appear to be any strictures or mass lesions apparent. The balloon fairly easily came through our sphincterotomy at the 11.5 mm setting. It should be noted that during the sphincterotomy portion of the procedure, we did give a single injection of 0.25 mg IV glucagon. ENDOSCOPIC DIAGNOSES: Choledocholithiasis, status post biliary sphincterotomy and ductal clearance. RECOMMENDATIONS: 1. N.p.o. x5 hours. Then clear liquids at that point, if doing well clinically. 2. Continue to hold Lovenox and aspirin for now. If based on the patient's hip fracture it is deemed to be necessary to continue something like this, then perhaps as early as tomorrow, this could be restarted. I would hold the aspirin for at least another few days. 3. If the patient does well with clear liquids this afternoon, this evening she can be advanced to her usual diet tomorrow morning. 4. Repeat labs are ordered for the morning. 5. Otherwise, continue pre-ERCP orders as per primary service.
[2016-08-02 00:15] VITALS: BP 136/78; PULSE 63; RESP 16; O2SAT 97
[2016-08-02 04:21] VITALS: BP 135/76; PULSE 62; RESP 18; O2SAT 96
--- NOTE | 2016-08-02 04:21 | NUR ---
ACTIVITY: Resting in bed comfortably. Voiding per bedpan, no BM tonight, given stool softeners at HS. C/o pain only when turning or repositioning in bed otherwise pt. is comfortable in bed. Tolerating PO intake without problems. Took chicken broth, coffee. States she is feeling more hungry now. 02 at 2 lit/nc, sats in the high 90s, cont. pulse oxymetry in place. Telemetry S/R, 60s. Denies chest pain. A & O, vss. On going care.
[2016-08-02 05:37] LABS: BASOPHILS % (AUTO) 0.1 % (0-3); EOSINOPHILS % (AUTO) 0.1 % (0-5); MONOCYTES % (AUTO) 8.3 % (4-12); Mean Corpuscular Hemoglobin 30.8 pg (27.0-35.0); Mean Corpuscular Volume 95.1 fL (81-100); NEUTROPHILS % (AUTO) 76.5 % (40-74); Platelet Count 189 bil/L (150-400)
[2016-08-02] MEDS: Tolterodine ER 4 mg ER24 Capsule PO SCH (08:19)
[2016-08-02] MEDS: Pantoprazole 40 mg ER24 Tablet PO SCH (08:19)
[2016-08-02] MEDS: Senna-Docusate 8.6-50 mg Tablet PO SCH (08:23)
[2016-08-02 08:45] VITALS: PULSE 97
[2016-08-02 09:41] VITALS: BP 114/66; PULSE 85; RESP 18; O2SAT 92
--- NOTE | 2016-08-02 09:58 | PCM.DIMED ---
Discharge Instructions Date of Service Aug 02, 2016 Dates of Hospitalization Jul 30, 2016 at 11:59 Discharge Diagnosis Discharge Diagnosis acute choledocholithiasis acute pelvic fracture Angina, hyperlipidemia, hypertension. hypothyroidism, nephrolithiasis, GERD irritable bowel syndrome, Medication Instructions GI recommended no aspirin for 7 days - able to restart on 08/08 Test Results MRCP: Patient Name: CAMERON JAMES MR#: [id number] Location: [facility] Ordering Phys: Micky Barragna DO Date of Service: 07/31/16 1136 PROCEDURE: MR ABDOMEN MRCP INDICATIONS: Elevated liver function tests. TECHNIQUE: Coronal HASTE through the abdomen, axial 2-D FLASH in- and [id number], and breath-hold T2 FSE with fat saturation through the biliary system and pancreas. Oblique coronal and axial thin-slice HASTE, radial thick-slab HASTE centered on the extrahepatic bile ducts. Intravenous secretin: Not requested. COMPARISON: [facility], CT, CT ABD PELVIS WO CON, 07/30/2016, 16:02. FINDINGS: Image quality: There is mild motion artifact and inhomogeneous fat saturation. Pancreas and biliary system: The gallbladder is surgically absent. There is extrahepatic and mild central intrahepatic biliary ductal dilatation, with the common duct measuring up to 15 mm in diameter. There are multiple clustered small round filling defects in a linear distribution demonstrated in the distal common bile duct consistent with choledocholithiasis. The pancreatic duct is normal in caliber. No peripancreatic fat edema or fluid collections. Other solid organs: There is a small cyst in the right hepatic lobe. Spleen is normal in size. No adrenal nodules. There are bilateral renal cysts including parapelvic cysts on the right. Nodes and vessels: No retroperitoneal or mesenteric adenopathy by size criteria. Aorta and inferior vena cava are normal in size. Bowel and peritoneum: Visualized bowel loops are normal in caliber. No free fluid. Lung bases: No basal pleural effusions. Heart size is normal. Bones and soft tissues: No ventral hernias. Bone marrow is of normal overall signal. IMPRESSION: 1. Multiple small round clustered filling defects in the distal common bile duct consistent with choledocholithiasis. 2. Intra-and extra hepatic biliary ductal dilatation measuring up to 15 mm. PROCEDURE: Endoscopic retrograde cholangiopancreatography with biliary sphincterotomy and stone extraction (balloon). INDICATIONS: An 81-year-old female who was found incidentally to have abnormal liver chemistries and choledocholithiasis by MRCP. EQUIPMENT: Standard duodenoscope. SEDATION: General anesthesia with endotracheal intubation as provided by Dr. Luis Enrique Burns. COMPLICATIONS: None identified. PROCEDURE INFORMATION: After the risks and benefits were explained, written and verbal informed consent was obtained, the patient was placed into the prone position very carefully, given her recent fall and pelvic fractures. This was accomplished after the patient was anesthetized and intubated successfully. After positioning was deemed appropriate, the scope was introduced into the mouth through the bite block, and advanced under indirect visualization to the stomach. From there, under direct visualization, the scope was guided into the second portion of the duodenum. The major papilla was identified and appeared to be releasing a rodriguez-colored bile. Using an Olympus 20 mm sphincterotome, we advanced the wire. Initial wire angle appeared to be a pancreas. We did not inject the PD. The wire was withdrawn. We then found the biliary tree and advanced the wire deep into the intrahepatics. The sphincterotome was introduced and initial cholangiogram suggested the presence of a filling defect in the mid dilated biliary tree. We pursued a biliary sphincterotomy over the wire, which appeared generous and quite adequate with free-flowing rodriguez bile. We then swapped out the sphincterotome for a balloon-tipped stone extraction catheter with injection port below the balloon. Using the 8.5 mm setting, we tested the sphincterotomy and it easily came through at the 8.5 quentin. I did not engage any stones. We then distended the balloon up to 11.5 mm, from about the level of the cystic duct takeoff, and ultimately it came through at that setting at 11.5 mm but no stone was seen removed. We then inflated the balloon to 11.5, from high up in the CHD and with withdrawal, engaged a small perhaps 4-5 mm stone. We then went all the way up to the level of the hilum and increased the balloon up to 15 mm. We then swept the duct and ultimately delivered a large, mixed consistency, oblong stone that looked like it was perhaps 4 mm by about 15 mm in length. This fairly easily came through after we slightly deflated the balloon from the 15 mm setting. We then swept the duct multiple other times at both the 11.5 and 15 mm setting. We yielded at least one further stone fragment, but subsequent sweeps did not yield any further debris. We felt that visually there was no obvious retained stone debris remaining. With application of suction from the duodenum this yielded free-flowing contrast and bile. We therefore elected to terminate. the procedure at that point. The scope was withdrawn back into the stomach. Excess air and fluid removed. The scope was then withdrawn from the patient who tolerated the procedure well. Prior to completion of the procedure, a 100 mg indomethacin suppository was placed to prophylax against post-ERCP pancreatitis. The patient was ultimately extubated and transferred to the PACU in stable condition. FINDINGS: As above. Biliary tree was cannulated and appeared dilated. There was a filling defect apparent on initial contrast imaging. The sphincterotomy appeared to be generous and quite adequate. We swept the duct several times, and ultimately, delivered two small stone fragments and one large oblong stone. Subsequent sweeps did not yield any further debris or filling defects. I did not see any evidence of pus anywhere throughout. There did not appear to be any strictures or mass lesions apparent. The balloon fairly easily came through our sphincterotomy at the 11.5 mm setting. It should be noted that during the sphincterotomy portion of the procedure, we did give a single injection of 0.25 mg IV glucagon. ENDOSCOPIC DIAGNOSES: Choledocholithiasis, status post biliary sphincterotomy and ductal clearance. RECOMMENDATIONS: 1. N.p.o. x5 hours. Then clear liquids at that point, if doing well clinically. 2. Continue to hold Lovenox and aspirin for now. If based on the patient's hip fracture it is deemed to be necessary to continue something like this, then perhaps as early as tomorrow, this could be restarted. I would hold the aspirin for at least another few days. 3. If the patient does well with clear liquids this afternoon, this evening she can be advanced to her usual diet tomorrow morning. 4. Repeat labs are ordered for the morning. 5. Otherwise, continue pre-ERCP orders as per primary service. Simon Wood MD 08/01/16 5988 Diet Low fat, Low Sodium, Heart Healthy Activity Home Health Phyical Therapy Call your provider Fever or Chills, Shortness of breath, Chest pain, Vomitting, Weakness ( unilateral) Patient Instructions You were treated for blockages in your biliary ducts, two stones were removed and we would like you to not take aspirin until 08/08 to ensure no bleeding has occurred after your procedure. Your procedure: ENDOSCOPIC DIAGNOSES: Choledocholithiasis, status post biliary sphincterotomy and ductal clearance. Please plan to follow up with your PCP Dr. Duke in 1 week with a f/u blood test before your appt to recheck your liver enzymes. Please discuss further GI f/u with Dr. Wood as necessary - after seeing Dr. Duke. Please discuss an orthopedic follow-up for imaging by referral from Dr. Duke for your nonsurgical orthopedic fracture He will found to have an acute on chronic fracture of the inferior right pubic ramus, your pelvis as well as a nondisplaced fracture along the inferior aspect of the right acetabulum/pubic ramus junction. Follow-up Provider: Henrry Duke DO Follow-up with PCP in: 1 week Micky Barragan DO Aug 02, 2016 09:30
[2016-08-02] MEDS ORDERED: OXYC5TAB72 PO (10:01)
[2016-08-02] MEDS ORDERED: POLY17PO6 PO (10:01)
[2016-08-02] MEDS ORDERED: GABA300C PO (10:01)
[2016-08-02] MEDS ORDERED: SENN-133 PO (10:01)
--- NOTE | 2016-08-02 10:11 | PCM.DC.MED ---
Discharge Summary Date of Service Aug 02, 2016 Dates of Hospitalization Date of Hospital Admission Jul 30, 2016 at 11:59 Date of Discharge: Aug 02, 2016 Providers: Admitting Physician: Ian Gaitan MD Primary Care Physician: Henrry Duke DO Attending Physician: Ian Gaitan MD Diagnosis at Time of Discharge Diagnosis at Time of Discharge acute choledocholithiasis - with GI follow-up for questionable indentation on bile duct, rule out neoplasm and discussed with Dr. Sarabia GI acute/chronic pelvic fracture Angina, hyperlipidemia, hypertension. hypothyroidism, nephrolithiasis, GERD irritable bowel syndrome, Consultations GI, Dr. Wood Ortho Service Procedures XRay, CTs & MRIs CT abdomen/pelvis done for elevated LFTs 1. Status post cholecystectomy. 2. Common bile duct measures 1.6 cm in diameter which may related to prior cholecystectomy versus obstructive process. Please correlate with laboratory data to exclude biliary obstruction. 3. Bilateral nonobstructing renal stones. 4. Colonic diverticulosis without evidence diverticulitis. 5. Atherosclerosis including the visualized coronary rupture. 6. Small hiatal hernia Dictated by: Casandra Hill MD, PhD on 07/30/2016 at 16:12 PROCEDURE: X-RAY PELVIS W/LAT HIP (RT) ([id number]) 1. Acute on chronic fracture of the inferior right pubic ramus. 2. Nondisplaced fracture along the inferior aspect of the right acetabulum/pubic ramus junction. Dictated by: Aura Crisostomo M.D. on 07/30/2016 at 10:21 Xray Interpretation: PROCEDURE: X-RAY THORACIC SPINE, 2 VIEWS 1. Osteopenia without an acute compression fracture evident. 2. Mild to moderate degenerative changes of the thoracic spine. Chest Xray Interpretation: IMPRESSION: Lung volumes are increased suggesting COPD, correlate with pulmonary functions test. Dictated by: Jenaro Abbasi [facility] Interpreted: Casandra Hill MD on 07/30/2016 at 11:38 ROCEDURE: X-RAY E.R.C. BILIARY DUCTS ([id number]) INDICATIONS: STONES TECHNIQUE: Fluoroscopic spot films were acquired by the gastroenterology service during ERCP procedure. COMPARISON: [facility], CR, XR SURG FLOURO EA 30 MIN, 08/01/2016, 10 :00. [facility], MR, MR ABD MRCP, 07/31/2016, 12:40. [facility], CT, CT ABD PELVIS WO CON, 07/30/2016, 16:02. FINDINGS: Fluoroscopic spot images submitted for interpretation demonstrate sweeping of the common bile duct with a balloon. Extrahepatic biliary ductal dilatation is present. There is a focal region of eccentric indentation involving the lateral aspect of the common bile duct. Intraoperative cholangiogram 08/01 IMPRESSION: 1. Common bile duct sweeping. 2. Biliary ductal dilatation. 3. Focal region of indentation of the lateral aspect of the common bile duct; finding could represent neoplasm. Dictated by: Jael Carver M.D. on 08/01/2016 at 12:24 ECG 12 Lead 05/09/16 and currently reviewed by me . Sinus rhythm . When compared with ECG of 17-Apr-2016 21:46:35, . No significant change Invasive Procedures ERCP 08/01 FINDINGS: As above. Biliary tree was cannulated and appeared dilated. There was a filling defect apparent on initial contrast imaging. The sphincterotomy appeared to be generous and quite adequate. We swept the duct several times, and ultimately, delivered two small stone fragments and one large oblong stone. Subsequent sweeps did not yield any further debris or filling defects. I did not see any evidence of pus anywhere throughout. There did not appear to be any strictures or mass lesions apparent. The balloon fairly easily came through our sphincterotomy at the 11.5 mm setting. It should be noted that during the sphincterotomy portion of the procedure, we did give a single injection of 0.25 mg IV glucagon. ENDOSCOPIC DIAGNOSES: Choledocholithiasis, status post biliary sphincterotomy and ductal clearance. RECOMMENDATIONS: 1. N.p.o. x5 hours. Then clear liquids at that point, if doing well clinically. 2. Continue to hold Lovenox and aspirin for now. If based on the patient's hip fracture it is deemed to be necessary to continue something like this, then perhaps as early as tomorrow, this could be restarted. I would hold the aspirin for at least another few days. 3. If the patient does well with clear liquids this afternoon, this evening she can be advanced to her usual diet tomorrow morning. 4. Repeat labs are ordered for the morning. 5. Otherwise, continue pre-ERCP orders as per primary service. Simon Wood MD 08/01/16 1155 Brief History HPI as per admitting physician: Patient was having coffee this morning and her daughter's house where she has been staying. She bent over to get something under counter lost her balance fell over and has had terrible pain since. She does report that she has been having episodes of upper back pain mid scapular intermittently but was somewhat was happening, it had not happened for quite some time but began in April. She is not experiencing that pain now. She describes that when it happens sometimes she wants to vomit one time she did not become better. It does not radiate anywhere it is not associated with exertion, is not associated with food , currently she is feeling all right as long as she does not move. Hospital Course 81-year-old female who fell at home and has pubic ramus fracture that was deemed nonsurgical and incidentally found to have fairly significant transaminitis of undetermined origin. He describes a history of mid back pain intermittently that may or may not be associated with nausea and vomiting but no association with food has happened a few times the last 3-4 months. She no longer has her gallbladder showed cholelithiasis is much less likely. ERCP planned today with GI after MRCP 07/31 demonstrated choledocholithiasis #Acute Choledocholithiasis, elevated liver enzymes, POA - status post MRCP and ERCP with initial CT scan showing dilated common bile duct -Status post ERCP with Dr. Wood, sphincterotomy and to stone removal with modest improvement in LFTs, clinically improved with no abdominal pain, and tolerating by mouth at time discharge -no clinical e/o cholangitis during hospitalization, the time of discharge patient was hemodynamically stable with adequate oxygenation and afebrile #Abnormal common bile duct, rule out neoplasm -Discussed with - plan for follow-up in his office, as likely neoplasm as he did not clinically appreciate any nodularity during his ERCP procedure #Pubic ramus fracture- -discussed orthopedic service prior to discharge, Dr. Conner - orthopedic recommendations include weightbearing as tolerated for 1 month with walker and home health PT. Only follow-up if necessary to orthopedic clinic or as deemed necessary by primary care physician -Pain control- patient to be discharged with a short course of oxycodone, gabapentin and continue tramadol when necessary, patient discharged with a bowel regimen including MiraLAX and senna - PT evaluation, home health physical therapy recommended at discharge #HTN/lipids- -hold statin secondary to transaminitis -Continue amlodipine, add hydralazine 25 mg every 4 prn SBP>160 #Hypothyroidism-continue Levoxyl #GERD-patient on omeprazole at home continuing Exam Vital Signs (Last) Date Time Temp Pulse Resp B/P Pulse Ox O2 Delivery O2 Flow Rate FiO2 08/02/16 04:42 Supplement Oxygen 08/02/16 04:21 36.6 62 18 135/76 96 2.00 Exam Gen.- A+ O 3 no apparent distress. Heavyset white female lying in bed Eyes- open conjunctiva clear, pupils equal nonicteric Mouth- oral mucosa moist, no exudate ENT- ears normal, nose normal Neck- supple/trach midline CVS- RRR no murmur or gallop Lungs- CTA, no wheezes or rhonchi or sensory muscle usage GI- NABS/NT soft, generous pannus Musc- moving 4 no obvious deformity Neuro- cranial nerves II through XII intact to gross examination, nonfocal Skin- warm and dry, no rashes/lesions/wounds noted Psych- pleasant and appropriate Test 07/30/16 09:00 07/30/16 11:21 08/01/16 06:45 08/02/16 05:10 Hold Purple Top Tube Received (Received) Hold Blue Top Tube Received (Received) Troponin T < 0.010ug/L (0.0-0.011) Lipase 32U/L (13-60) Procalcitonin 0.13ng/mL (0.00-0.08) Hold Red Top Tube Received (Received) Hold [place] Top Tube Received (Received) Urine Color Dark yellow (YELLOW) Urine Appearance Slightly cloudy Urine pH 6.5 (5.0-8.0) Urine Specific [place] 1.015 (1.003-1.035) Urine Protein Negativemg/dL (NEG,TRACE) Urine Glucose (UA) Negativemg/dL (NEGATIVE) Urine Ketones Negativemg/dL (NEGATIVE) Urine Occult Blood Negative (NEGATIVE) Urine Nitrite Negative (NEGATIVE) Urine Bilirubin Small (NEGATIVE) Urine Ictotest Positive (Negative) Urine Urobilinogen 8mg/dL (NORMAL) Urine Leukocyte Esterase Small (NEGATIVE) Urine RBC 0-2/hpf (0-2) Urine WBC 0-5/hpf (0-5) Urine Epithelial Cells Occasional/hpf (NONE-MOD) Urine Crystals None seen (NONE SEEN) Urine Bacteria Many/hpf (NONE-FEW) Urine Hyaline Casts None/lpf (NONE) Urine Granular Casts None seen (NONE SEEN) Urine Waxy Casts None seen (NONE SEEN) Urine Red Blood Cell Casts None seen (NONE SEEN) Urine White Blood Cell Casts None seen (NONE SEEN) Urine Mucus None seen (None Seen) Urine Trichomonas None seen (NONE SEEN) Urine Yeast None (NONE SEEN) Urinalysis Comment None Urine Culture Reflexed Indicated Direct Bilirubin 0.4mg/dL (0.0-0.3) White Blood Count 8.2th/mm3 (3.8-10.1) Red Blood Count 3.90mil/mm3 (3.90-5.20) Hemoglobin 12.0g/dL (12.0-15.6) Hematocrit 37.1% (35.0-46.0) Mean Corpuscular Volume 95.1fL (81-100) Mean Corpuscular Hemoglobin 30.8pg (27.0-35.0) Mean Corpuscular Hemoglobin Concent 32.3% (32.0-37.0) Red Cell Distribution Width 12.9% (12.3-15.4) Platelet Count 189bil/L (150-400) Neutrophils (%) (Auto) 76.5% (40-74) Lymphocytes (%) (Auto) 14.9% (14-46) Monocytes (%) (Auto) 8.3% (4-12) Eosinophils (%) (Auto) 0.1% (0-5) Basophils (%) (Auto) 0.1% (0-3) Sodium Level 138mEq/L (134-144) Potassium Level 4.4mEq/L (3.5-5.2) Chloride Level 100mEq/L (97-108) Carbon Dioxide Level 26mmol/L (18-29) Blood Urea Nitrogen 11mg/dL (8-27) Creatinine 0.49mg/dL (0.57-1.00) Estimat Glomerular Filtration Rate 173mL/min (>59) Glucose Level 98mg/dL (60-99) Calcium Level 9.2mg/dL (8.5-10.1) Total Bilirubin 0.7mg/dL (0.0-1.2) Aspartate Amino Transf (AST/SGOT) 37U/L (0-50) Alanine Aminotransferase (ALT/SGPT) 129U/L (0-32) Alkaline Phosphatase 466U/L (25-165) Total Protein 5.9g/dL (6.4-8.4) Albumin 3.1g/dL (3.4-5.0) Discharge Medications Discharge Medications Amlodipine (Amlodipine) 5 Mg Tablet 5 MG PO DAILY (Reported) Atorvastatin (Lipitor) 40 Mg Tablet 40 MG PO DAILY Prescribed by: NANCY CHIN MD Gabapentin (Neurontin) 300 Mg Capsule 300 MG PO HS Prescribed by: FAN GU DO Levothyroxine (Levothyroxine) 50 Mcg Tablet 50 MCG PO DAILY Prescribed by: NANCY CHIN MD Omeprazole (Omeprazole) 20 Mg Capsule.dr 20 MG PO BID (Reported) Tolterodine Tartrate ER (Tolterodine Tartrate ER) 4 Mg Capsule 4 MG PO DAILY Prescribed by: NANCY CHIN MD As needed Acetaminophen (Acetaminophen) 500 Mg Tablet 1,000 MG PO TID PRN PRN For Pain ( Reported) Bismuth Subsalicylate (Pepto-Bismol) 262 Mg Tab.chew 262-1,048 MG PO PRN PRN PRN For Dyspepsia or Heartburn (Reported) Calcium Carbonate (Calcium Carbonate) 300 Mg Calcium (750 Mg) Tab.chew 300 MG PO QID PRN PRN For Dyspepsia or Heartburn (Reported) Nitroglycerin SL (Nitroglycerin SL) 0.4 Mg Tab.subl 0.4 MG SL Q5MIN PRN PRN For Chest Pain (Reported) Repeat every 5 minutes, up to 3 tablets Polyethylene Glycol 3350 (Miralax) 17 Gm Powd.pack 17 GM PO DAILY PRN PRN For Constipation Prescribed by: FAN GU DO Sennosides (Senna) 8.6 Mg Tablet 17.2 MG PO BID PRN PRN For Constipation Prescribed by: FAN GU DO Tramadol (Tramadol) 50 Mg Tablet 50 MG PO QID PRN PRN For Pain (Reported) oxyCODONE (oxyCODONE) 5 Mg Tablet 5 MG PO Q4H PRN PRN For Moderate Pain Prescribed by: FAN GU DO Followup Plan Disposition: See discharge instructions which include follow-up with Dr. Sarabia and GI in 2 -3 weeks by calling for an appointment to further discuss indentation on common bile duct and evaluation for neoplasm. After discussion with Dr. Sarabia, neoplasm unlikely but follow-up with repeat liver enzymes recommended. Also has follow-up with PCP within a week and repeat liver panel.\ Orthopedic service was consulted and evaluated films for pelvic fracture Discharge Diet: Low fat, Low Sodium, Heart Healthy Patient Instructions Weightbearing as tolerated for 1 month with walker and continue home health PT. Or the follow-up only as needed, plan for GI follow-up as above Follow-up Provider: Henrry Duke DO Follow-up with PCP in: 1 week Provider: Simon Wood MD Follow-up in: 2 weeks Time spent 45 minutes spent with evaluation and discharge of this patient. Greater than 50 % time was spent [id number] counseling copies to: Henrry Duke DO; Simon Wood MD, David DO Aug 02, 2016 07:31
[2016-08-02 13:48] VITALS: BP 106/66; PULSE 93; RESP 18; O2SAT 91
--- NOTE | 2016-08-02 14:25 | NUR ---
Social Work: Discharge Data & Assessment: Supervisor Drying met with patient at bedside and gave patient a CHOICE list for home health. Patient chose [facility] and stated that she had [facility] in the past. Supervisor Drying spoke with Jefferson from [facility] and notified him of the referral. SW faxed [id number] to [facility] and gave [facility] access to patient's chart. Patient will discharge home with daughter and [facility]. Plan: Patient will discharge home with daughter and [facility] via POV. Stephanie Hernandes LMSW, JONO
--- NOTE | 2016-08-02 17:50 | NUR ---
Discharge Pt. discharged to home via w/c at 1630 in stable condition. Accompanied by daughter and grandson. All belongings, scripts and instructions with pt. Pt. has an order for home bedside commode d/t mobility restrictions. IV and tele dc'd prior to discharge. No questions or concerns at this time.
== END 2016-08-02 16:32 | disposition home health service (06) ==
LOC: EDBD 08:58 → SED 08:58 → OSC 11:59
PROVIDERS: ADMIT Hospitalist; ATTEND Hospitalist
DX: K80.50 Calculus of bile duct without cholangitis or cholecystitis without obstruction (principal); S32.591A Other specified fracture of right pubis, initial encounter for closed fracture; W18.30XA Fall on same level, unspecified, initial encounter; Y93.89 Activity, other specified; Y92.000 Kitchen of unspecified non-institutional (private) residence as the place of occurrence of the external cause; Y99.8 Other external cause status; E03.9 Hypothyroidism, unspecified; K21.9 Gastro-esophageal reflux disease without esophagitis; I10 Essential (primary) hypertension; Z96.641 Presence of right artificial hip joint; Z87.891 Personal history of nicotine dependence; R74.0 Nonspecific elevation of levels of transaminase and lactic acid dehydrogenase [LDH]; Z87.442 Personal history of urinary calculi; I20.9 Angina pectoris, unspecified; K58.9 Irritable bowel syndrome, unspecified
CPT/HCPCS: 36415; 43262; 43264; 71010; 72070; 73501; 74176; 74181; 74328; 80048; 80053; 80076; 81000; 83690; 84145; 84484; 85025; 87086; 87088; 93005; 96374; 96375; 97162; 99285; G0378; G8978; G8979; J1100; J1170; J1610; J1650; J2405; J2710; J7120; Q9967

== ENCOUNTER 2016-08-21 03:37 | Inpatient (IN) | payer MEDICARE, OTHER ==
[~2016-08-21] VITALS: Ht 167.6 cm; Wt 74.2 kg
[2016-08-21] VITALS (8 sets, daily range): BP systolic 145–161; BP diastolic 75–112; PULSE 87–112; RESP 18–22; O2SAT 90–98
[~2016-08-21 03:37] MED LIST changes: +AMLO5TAB2 PO; -ASPI-973 PO; +GABA300C PO; +OMEP20CA11 PO; -OMEP20TA86 PO; +OXYC5TAB72 PO; +POLY17PO6 PO; +SENN-133 PO; +TRAM50TA2 PO
--- NOTE | 2016-08-21 03:39 | ED.REPORT ---
HPI-General Illness Date of Service Aug 21, 2016 ED Provider: Prakash Abernathy MD Patient is a 81 year old female with a history of prior lacunar stroke, hypertension, hyperlipidemia, right hip hemiarthroplasty, and recent pubic ramus fracture on 07/30 presents to the ED via EMS complaining of vertigo that began 3 days ago. She describes the sensation that the room is spinning and that she feels very dizzy. These symptoms are constant and have never let up. She reports associated diplopia, nausea, general malaise, decreased PO intake, and weakness but denies headache, chest pain, shortness of breath, or abdominal pain. She reports prior right sided deficits with her prior stroke, both weakness and tingling, worse since onset of vertigo. Patient states that her current symptoms are similar to when she previously had her stroke. Patient has limited mobility since her pelvic fracture but she was able to walk with help up until yesterday. She called 911 several days ago due to these symptoms and a decision was made not to transport. Patient was started on antibiotics for a UTI on the , but stopped taking them because they made her feel sick. Nursing Notes Stated Complaint: GENERALISE MALAISE Nursing Notes Reviewed: Yes Allergies: Coded Allergies: iodine (Verified Allergy, Unknown, 04/17/16) Scheduled Amlodipine (Amlodipine) 5 Mg Tablet 5 MG PO DAILY Atorvastatin (Lipitor) 40 Mg Tablet 40 MG PO DAILY Gabapentin (Neurontin) 300 Mg Capsule 300 MG PO HS Levothyroxine (Levothyroxine) 50 Mcg Tablet 50 MCG PO DAILY Omeprazole (Omeprazole) 20 Mg Capsule.dr 20 MG PO BID Tolterodine Tartrate ER (Tolterodine Tartrate ER) 4 Mg Capsule 4 MG PO DAILY Scheduled PRN Acetaminophen (Acetaminophen) 500 Mg Tablet 1,000 MG PO TID PRN PRN For Pain Bismuth Subsalicylate (Pepto-Bismol) 262 Mg Tab.chew 262-1,048 MG PO PRN PRN PRN For Dyspepsia or Heartburn Calcium Carbonate (Calcium Carbonate) 300 Mg Calcium (750 Mg) Tab.chew 300 MG PO QID PRN PRN For Dyspepsia or Heartburn Nitroglycerin SL (Nitroglycerin SL) 0.4 Mg Tab.subl 0.4 MG SL Q5MIN PRN PRN For Chest Pain Repeat every 5 minutes, up to 3 tablets Polyethylene Glycol 3350 (Miralax) 17 Gm Powd.pack 17 GM PO DAILY PRN PRN For Constipation Sennosides (Senna) 8.6 Mg Tablet 17.2 MG PO BID PRN PRN For Constipation Tramadol (Tramadol) 50 Mg Tablet 50 MG PO QID PRN PRN For Pain oxyCODONE (oxyCODONE) 5 Mg Tablet 5 MG PO Q4H PRN PRN For Moderate Pain General Time Seen by MD: 03:38 Chief Complaint Other (vertigo) Hx Obtained From: Patient Arrived By: Ambulance Sudden in Onset?: No Onset Occurred: 3 days ago Symptom Duration: Since onset Severity: Current: No pain currently Severity: Maximum: No pain Recent Healthcare: No recent doctor visit, No recent hospitalization Similar Sx Previous: No Past Medical History Past Medical History Notes: Dr. Duke Past Medical History 1. CVA (lacunar) with right hemiparesis 2. Hypertension 3. Hyperlipidemia 4. Hypothyroidism 5. choledocholithiasis 6. Angina 7. Kidney stones 8. Pubic ramus fractur 9. IBS Reports: GERD, Stroke Past Surgical History right hip hemiarthroplasty kidney stone removal hip replacement 6-7 years ago, and hip surgery 18 months ago. Reports: Hysterectomy Smoking History Former Smoker Social History Alcohol Use: "Social" Other Social History: Good social support, Local resident Ambulatory Status Walker Review of Systems + decreased PO intake Full Review of Systems Constitutional: Reports: Malaise, Weakness - generalized Eyes: Reports: Diplopia Respiratory: Denies: Shortness of breath Cardiovascular: Denies: Chest pain GI: Reports: Nausea, Denies: Abdominal pain Neurologic: Reports: Dizziness, Focal weakness, Numbness, Spinning sensation, Weakness, Denies: Headache Complete sys rev & neg: except as marked. Physical Exam Vital Signs Vital Signs Date Time Temp Pulse Resp B/P Pulse Ox O2 Delivery O2 Flow Rate FiO2 08/21/16 03:41 36.5 112 22 147/112 93 Room Air Initial VS: Reviewed Psychiatric: Mood/affect normal, Behavior normal General/Constitutional: Awake, Alert, No acute distress Head / Eyes: Atraumatic, Normocephalic, PERRL, EOMI ENT: Airway patent Neck: Supple, No JVD Respiratory / Chest: Breath sounds = bilat, No respiratory distress, No stridor Cardiovascular: Heart rate NL, Regular rhythm, Heart sounds NL Abdomen: Soft, Non-tender Upper Extremities Upper Extremity / MS: No swelling, No deformity, No edema Lower Extremity / Pelvis / MS: No swelling, No deformity, No edema Neurologic: Oriented X3, Speech NL, CN II - XII intact [id number]: Mildly abnormal on the right. Subjective decreased sensation on the right. Decreased strength in lower extremities, 3/5. No pronator drift Interpretation & Diagnostics Lab Results Interpretation Result Diagram: 08/21/16 0330 08/21/16 0330 Test 08/21/16 03:30 White Blood Count 7.7th/mm3 (3.8-10.1) Red Blood Count 4.67mil/mm3 (3.90-5.20) Hemoglobin 14.3g/dL (12.0-15.6) Hematocrit 44.2% (35.0-46.0) Mean Corpuscular Volume 94.6fL (81-100) Mean Corpuscular Hemoglobin 30.6pg (27.0-35.0) Mean Corpuscular Hemoglobin Concent 32.4% (32.0-37.0) Red Cell Distribution Width 13.1% (12.3-15.4) Platelet Count 345bil/L (150-400) Neutrophils (%) (Auto) 65.8% (40-74) Lymphocytes (%) (Auto) 27.8% (14-46) Monocytes (%) (Auto) 5.6% (4-12) Eosinophils (%) (Auto) 0.3% (0-5) Basophils (%) (Auto) 0.4% (0-3) Prothrombin Time 10.3sec (8.1-12.5) Prothromb Time International Ratio 0.96ratio Activated Partial Thromboplast Time 28.7sec (22.8-33.0) Sodium Level 144mEq/L (134-144) Potassium Level 3.7mEq/L (3.5-5.2) Chloride Level 101mEq/L (97-108) Carbon Dioxide Level 24mmol/L (18-29) Blood Urea Nitrogen 9mg/dL (8-27) Creatinine 0.54mg/dL (0.57-1.00) Estimat Glomerular Filtration Rate 154mL/min (>59) Glucose Level 124mg/dL (60-99) Calcium Level 9.5mg/dL (8.5-10.1) Total Bilirubin 0.6mg/dL (0.0-1.2) Aspartate Amino Transf (AST/SGOT) 21U/L (0-50) Alanine Aminotransferase (ALT/SGPT) 12U/L (0-32) Alkaline Phosphatase 273U/L (25-165) Troponin T 0.010ug/L (0.0-0.011) Total Protein 7.5g/dL (6.4-8.4) Albumin 3.9g/dL (3.4-5.0) ECG Interpretation ECG Interpretation: Sinus tachycardia, Rate 100 Time: 04:18 Interpreted by: ED physician X-Ray Chest Interpretation Chest Xray Interpretation: Impression: No acute cardiopulmonary process. View: Portable Interpretation / Wet Read by: Wet read ED physician CT Head Interpretation IMPRESSION: No CT evidence of hemorrhage, mass, or acute infract. Radiologist: Jayson Sandoval MD 08/21/2016 - 4:17:54 AM PDT Study: Head CT no contrast Interpretation / Wet Read by: Interpret - Radiologist Re-Eval/Medical Decision Med Decision/Clinical Course Page 1-year-old with stroke symptoms difficult to localize completely. Onset was three days ago when not a candidate for TPA. She has persistent vertigo which appears to be central vertigo. She has associated diplopia, also pointing to a posterior circulation stroke. She has both sensory and motor symptoms confined to the right side which may be posterior and may be anterior. Her leg is weaker than arm and there are no facial symptoms at all. This pattern is more suggestive of anterior disease. CT does not show any bleeding, but does show some old lacunar infarcts. Admitted now for further evaluation including MRA. Aspirin given after negative CT and negative swallow screen. Source of Hx: Old records Time of Eval: 04:57 Patient Status: Condition improved Re-Evaluation/Progress Note: Rechecked the patient. She was informed that her CT scan, EKG, and chest x-ray were normal. Her daughter is now present in the ED. Patient will need to be admitted to the hospital for further work-up. Her symptoms are likly an extension of her prior stroke. Patient understands and agrees with this plan. All questions were addressed. Consultation : Referral / Consult Name: Glenn Phan MD Consulted With: Hospitalist Call Returned at: 05:11 Band Edger: Will see patient, Agrees with eval, Agrees with plan, Accepts admit Note: Spoke with Dr. Phan, hospitalist, who agrees to accept admit. Counseled Regarding: Diagnosis, Lab results, Need for admission Discharge & Departure Primary Impression: Acute ischemic stroke Additional Impression: Vertigo Disposition: ADMITTED TO HOSPITAL Discharge Condition All VS Reviewed: Yes Condition: Stable Referrals: Henrry Duke DO (PCP) [place] Attestation Portions of this note were transcribed by Tamiko Bagley. I, Dr. Abernathy personally performed the history, physical exam and medical decision-making; I reviewed and confirmed the accuracy of the information in the transcribed note. Signed by: Deo Matt, 08/21/2016 0514 copies to: Henrry Duke Christopher W MD Aug 21, 2016 03:39 Tamiko Bagley Aug 21, 2016 03:46
[2016-08-21] MEDS ORDERED: 0.9% Sodium Chloride 1,000 ML IV ONE (03:50)
[2016-08-21 03:58] LABS: BASOPHILS % (AUTO) 0.4 % (0-3); EOSINOPHILS % (AUTO) 0.3 % (0-5); MONOCYTES % (AUTO) 5.6 % (4-12); Mean Corpuscular Hemoglobin 30.6 pg (27.0-35.0); Mean Corpuscular Volume 94.6 fL (81-100); NEUTROPHILS % (AUTO) 65.8 % (40-74); Platelet Count 345 bil/L (150-400)
[2016-08-21 04:06] LABS: INR 0.96 ratio
[2016-08-21 04:26] LABS: TROPONIN T 0.01 ug/L (0.0-0.011)
[2016-08-21] MEDS ORDERED: Alum-Mag Hydrox-Simeth 30 mL Suspension PO PRN (05:10)
[2016-08-21] MEDS ORDERED: Polyethylene Glycol (PEG) 17 Gm Powder PO PRN (05:10)
[2016-08-21] MEDS ORDERED: Labetalol 5 mg/mL 4 mL Inj IVPUSH PRN (05:10)
--- NOTE | 2016-08-21 05:19 | PCM.HPMED ---
Subjective Date of Service Aug 21, 2016 Primary Provider: Admitting Physician: Primary Care Physician: Henrry Duke DO Attending Physician: Admit Status: From the Emergency Department, 23-Hour Observation, Remote Telemetry Chief Complaint: Vertigo History of Present Illness: Joselin Titus is a 81 year old female with Prior lacunar stroke, hypertension , hyperlipidemia, right hip hemiarthroplasty, and recent pubic ramus fracture on 07/30 presents to [facility] emergency department via EMS complaining of vertigo that began 3 days ago. She describes the sensation that the room is spinning and that she feels very dizzy. The patient states that these symptoms are constant and have never let up. She called 911 several days ago and a decision was made not to transport. She reports associated diplopia, nausea, general malaise, decreased PO intake, and weakness but denies headache, chest pain, shortness of breath, or abdominal pain. She reports her current symptoms were exactly like to ones prior to her diagnosis of Stroke recently She reports prior right sided deficits with her prior stroke, both weakness and tingling. No new medications started except Amoxicillin. Denies any trauma to her head. Patient has limited mobility since her pelvic fracture but she was able to walk until the last day. Patient was started on Amoxicillin for a UTI on 08/19, but stopped taking them because they made her feel sick. Case discussed with Dr Abernathy, Ct head showed no bleeding but still unstable on her feet with ongoing vertigo. Plan to admit to complete a Stroke workup. Review of Systems: Pertinent positives as noted in HPI. All other systems were reviewed and are negative Allergies Coded Allergies: iodine (Verified Allergy, Unknown, 04/17/16) Home Medications From Joselin Sow [id number] 1935 08/13/2016 03:30 PM 05/07 amlodipine 5 mg tablet take 1 tablet by oral route every day Aspir-81 81 mg tablet,delayed release take 1 tablet by oral route every day atorvastatin 40 mg tablet take 1 tablet by oral route every day gabapentin 300 mg capsule take 1 capsule by oral route at bedtime levothyroxine 75 mcg tablet take 1 tablet by oral route every day Miralax 17 gram oral powder packet take 1 packet by oral route every day mixed with 8 oz. water, juice, soda, coffee or tea nitroglycerin 0.[address] 1 tablet by sublingual route once at 1st sign of attack; may repeat every 5 minutes up to 3 tabs; if norelief seek medical help omeprazole 40 mg capsule,delayed release take 1 capsule by oral route twice a day oxycodone 5 mg tablet take 1 tablet by oral route every 4 hours as needed for pain Pepto-Bismol 262 mg tablet 1-4 tablets daily as needed senna 8.6 mg tablet take 2 tablet by oral route every day as needed for constipation tolterodine ER 4 mg capsule,extended release 24 hr take 1 capsule by oral route every day tramadol 50 mg tablet take 1 or 2 tablets by oral route every 6 hours as needed Tums 300 mg (750 mg) chewable tablet Chew 1 tablet as needed Tylenol Extra Strength 500 mg tablet take 2 tablet by oral route TID as needed PMH Angina Hyperlipidemia Hypertension. Hypothyroidism nephrolithiasis Gastroesophageal reflux disease Transient ischemic attack Irritable bowel syndrome . Surgical History Status post right hip hemiarthroplasty Reportedly a right femur fracture, for which she does have a pin in place, Kidney stone removal Hysterectomy. Recent ERCP with stones extraction Family History Her parents were killed in a car accident when she was 18 months old. Her brother has hypothyroidism. Social History Hx Alcohol Use: No Hx Substance Use: No Hx Tobacco Use: Yes Smoking Status: Former Smoker Living Arrangement: with Family Exam Vital Signs Vital Sign - Last Date Time Temp Pulse Resp B/P Pulse Ox O2 Delivery O2 Flow Rate FiO2 08/21/16 03:41 36.5 112 22 147/112 93 Room Air Intake and Output 08/20/16 08/20/16 08/21/16 Cumulative From/Thru 15:00 23:00 07:00 08/21/16 03:41 - 08/21/16 04:15 Intake Total 1000 ml 1000 ml Balance 1000 ml 1000 ml Intake IV Total 1000 ml 1000 ml Exam General: Alert, Oriented X3, Cooperative, No acute Distress Eyes: PERRLA, Scleral Anicteric Mouth: Mouth Normal, Mucous Membranes Moist/[place] Neck: Supple, no Thyromegaly, trachea central. Chest & Lungs: Clear to auscultation & percussion, No adventitious breath sounds, no crackles, no wheeze Cardiovascular: Normal S1, Normal S2, No Murmurs/Rubs/Gallops, Regular Rate/ Rhythm, (No JVD, no peripheral edema) Pulses: Radial (present and equal), Dorsalis Pedi (present and equal) Abdomen: Soft, Non-tender, Non-distended, Normoactive bowel tones. Musculoskeletal: Unremarkable. Normal range of motion, no swollen or erythematous joints Extremities: No edema, no cyanosis, no clubbing. Skin: No rashes. Warm and dry, no erythematous areas Lymphatic: Lymph nodes Cervical and Axillary not palpable. Neurological: Mental Status: Awake and alert without any slurred speech Cranial nerves: PERRL. Extraocular movements are intact with no nystagmus. Visual lucero are full to direct confrontation. The face is symmetric, tongue midline Motor: Normal tone. She is able to hold both arms and legs up off the bed Sensation: Intact to light touch throughout Coordination: Cerebellar testing intact bilaterally Reflexes: 2 throughout, toes withdraw Gait: not tested Lab and Diagnostics Labs Laboratory Tests Test 08/21/16 03:30 White Blood Count 7.7th/mm3 (3.8-10.1) Red Blood Count 4.67mil/mm3 (3.90-5.20) Hemoglobin 14.3g/dL (12.0-15.6) Hematocrit 44.2% (35.0-46.0) Mean Corpuscular Volume 94.6fL (81-100) Mean Corpuscular Hemoglobin 30.6pg (27.0-35.0) Mean Corpuscular Hemoglobin Concent 32.4% (32.0-37.0) Red Cell Distribution Width 13.1% (12.3-15.4) Platelet Count 345bil/L (150-400) Neutrophils (%) (Auto) 65.8% (40-74) Lymphocytes (%) (Auto) 27.8% (14-46) Monocytes (%) (Auto) 5.6% (4-12) Eosinophils (%) (Auto) 0.3% (0-5) Basophils (%) (Auto) 0.4% (0-3) Prothrombin Time 10.3sec (8.1-12.5) Prothromb Time International Ratio 0.96ratio Activated Partial Thromboplast Time 28.7sec (22.8-33.0) Sodium Level 144mEq/L (134-144) Potassium Level 3.7mEq/L (3.5-5.2) Chloride Level 101mEq/L (97-108) Carbon Dioxide Level 24mmol/L (18-29) Blood Urea Nitrogen 9mg/dL (8-27) Creatinine 0.54mg/dL (0.57-1.00) Estimat Glomerular Filtration Rate 154mL/min (>59) Glucose Level 124mg/dL (60-99) Calcium Level 9.5mg/dL (8.5-10.1) Total Bilirubin 0.6mg/dL (0.0-1.2) Aspartate Amino Transf (AST/SGOT) 21U/L (0-50) Alanine Aminotransferase (ALT/SGPT) 12U/L (0-32) Alkaline Phosphatase 273U/L (25-165) Troponin T 0.010ug/L (0.0-0.011) Total Protein 7.5g/dL (6.4-8.4) Albumin 3.9g/dL (3.4-5.0) Result Diagram: 08/21/16 0330 08/21/16 033 X-Rays, CTs and MRIs CT Head Interpretation IMPRESSION: No CT evidence of hemorrhage, mass, or acute infract. Radiologist: Jayson Sandoval MD 08/21/2016 - 4:17:54 AM PDT Assessment & Plan Joselin Titus is a 81 year old female with Prior lacunar stroke, hypertension , hyperlipidemia, right hip hemiarthroplasty, and recent pubic ramus fracture on 07/30 presents to [facility] emergency department via EMS complaining of vertigo 1. Vertigo due to Possible Stroke. Present on admission Stroke risk factors includes Hypertension, Hyperlipidemia, previous Stroke and age. Not a TPA candidate due to symptoms ongoing for at least 3 days. Symptoms mainly vertigo points to a Posterior stroke. Differential diagnosis includes Benign Positional Vertigo - monitor on telemetry - continue Aspirin for antiplatelet and secondary prevention - MRI/MRA brain, complete echo and Carotid ultrasound - Speech, Occupational and Physical therapy assessment - consider Neurology consult if MRI confirm stroke findings 2. Hypertension - allow permissive hypertension - holding Amlodipine 5 mg daily 3 Hyperlipidemia - checking Lipids - starting Statin 4 Hypothyroidism - continue Synthroid 75 mcg daily - Acetaminophen as needed for mild pain/fever/headache - Bowel regimen as needed - Antiemetic as needed Patient is admitted under observation status with expected length of stay less than 2 midnights due to severity of presenting symptoms, risk of adverse event, and complexity of treatment plan . Resuscitation Status: DNR/DNI:Do Not Resuscitate/Intubate Glenn Phan MD Aug 21, 2016 05:19 Glenn Phan MD Aug 21, 2016 05:19 Glenn Phan MD Aug 21, 2016 05:19
--- NOTE | 2016-08-21 06:19 | NUR ---
Admit Note Pt arrived to room 3023 at around 0610. Alert and oriented. 2x slide over to bed. Pt dizzy with turning and movement . Denies new pain, some pain in R leg after stroke that is always there, does not take anything besides Tylenol. 1 L bolus still infusing. No neuro deficits.
--- NOTE | 2016-08-21 06:40 | PCM.ADCARE ---
Advance Care Planning Note Purpose of Encounter: Active Diagnoses: Recurrent Strokes Hypertension Hyperlipidemia These active diagnoses are sufficient risk that focused discussion on advance car planning is indicated in order to allow the patient to thoughtfully consider personal goals of care and if situations arise that prevent the ability to personally give input to insure appropriate representation of their personal desires through documentation or informed surrogate decision makers Parties in Attendance: Patient and me Decisional Capacity: Good Plan: I reviewed her recurrent Strokes and other chronic conditions such as Hypertension and Hyperlipidemia and her desires for ongoing aggressive care, including potential intubation and mechanical ventilation as well as CPR. Also discussed who would speak on her behalf should she be unable to do so, she states her son King (currently lives in [place]) will be her proxy and Power of title attorney. She understands her conditions and appreciates the discussion we had. She has talked to her kids and is okay and happy with her decision CODE STATUS: DNR/DNI Time Spent Adv.Care Planning: Total time spent [id number] in education and discussion directly related to Advance Care Plannin minutes Glenn Phan MD Aug 21, 2016 06:40
[2016-08-21 07:18] LABS: APPEARANCE,URINE HAZY (CLEAR,HAZY); COLOR,URINE YELLOW (YELLOW); OCCULT BLOOD,URINE TRACE (NEGATIVE); PH,URINE 7.5 (5.0-8.0); UROBILINOGEN,URINE NORMAL (NORMAL)
--- NOTE | 2016-08-21 08:51 | DRSVH ---
PROCEDURE: CT BRAIN WITHOUT CONTRAST ([id number]) INDICATIONS: Stroke TECHNIQUE: Noncontrast 4.5 mm thick angled axial sections acquired from the foramen magnum to the vertex, with c oronal reformats. COMPARISON: [facility], MR, MR STROKE PROTOCOL, 05/11/2016, 11:53. [facility] l, CT, CT BRAIN WO CON, 05/09/2016, 17:10. FINDINGS: Image quality: Excellent. CSF spaces: Basal cisterns are patent. No extra-axial fluid collections. The ventricles are symmet ashkan in size and shape. Brain: No intracranial bleeds or masses. There is cerebral volume loss for age, with resultant vent ricular and sulcal prominence. There are periventricular and deep white matter chronic small vessel ischemic changes. An area of prior lacunar infarction in the adamson radiata on the left has evolved to a small fluid filled area of encephalomalacia subsequent to the prior MR scanning in May of year. There is intracranial internal carotid artery atherosclerosis. Skull and face: Calvarium and visualized facial bones appear intact, without suspicious lesions. Sinuses: Visualized sinuses and mastoids are clear. IMPRESSION: No acute disease is found. No hemorrhage is seen. A small focus of prior stroke identif ied in May of this year has evolved to focal encephalomalacia with central fluid, expected interv al change. Note: These findings are concordant with the preliminary interpretation. Dictated by: Luis A Broussard M.D. on 08/21/2016 at 8:47 Approved by: Luis A Broussard M.D. on 08/21/2016 at 8:49
--- NOTE | 2016-08-21 09:06 | NUR ---
dizzy pt is apprehensive about getting up today. She states that she isn't comfortable getting up yet and wants to remain bedrest for the day.
--- NOTE | 2016-08-21 10:16 | DRSVH ---
PROCEDURE: X-RAY CHEST ONE VIEW, PORTABLE ([id number]) INDICATIONS: malaise TECHNIQUE: One view of the chest was acquired. COMPARISON: [facility], CR, XR CHEST 1VW (PORTABLE), 07/30/2016, 10:04. [facility], CR, XR CHEST 2VW, 04/18/2016, 12:59. FINDINGS: Surgical changes and devices: None. Lungs and pleura: No pleural effusions or pneumothorax. Lungs are clear. The patient demonstrates mild convex leftward scoliosis, with chronically asymmetric slightly smaller left lung volume when co mpared to the right. Mediastinum: Mediastinal contours appear normal. Heart size is normal. Bones and chest wall: No suspicious bony lesions. Overlying soft tissues appear unremarkable. IMPRESSION: No acute disease, source of malaise is not seen. Convex leftward mild scoliosis. Dictated by: Luis A Broussard M.D. on 08/21/2016 at 10:14 Approved by: Luis A Broussard M.D. on 08/21/2016 at 10:15
--- NOTE | 2016-08-21 10:50 | DRSVH ---
PROCEDURE: US BILATERAL DUPLEX DOPPLER IMAGING OF THE CAROTIDS ([id number]) INDICATIONS: stroke TECHNIQUE: Color and pulse Doppler interrogation was performed of both carotid systems, with image documentation and velocity measurements. COMPARISON: [facility], US, US CAROTID DPLX DOPPLER BILAT, 05/10/2016, 10:51. FINDINGS: All stenosis calculations are based on NASCET criteria. Right side: Brachial blood pressure: 140/84 mm Hg. Common carotid artery peak systolic velocity: 66 cm/sec. Internal carotid artery peak systolic velocity: 11 cm/sec. Internal carotid artery end diastolic velocity: 28 cm/sec. External carotid artery peak systolic velocity: 87 cm/sec. ICA/CCA peak systolic ratio: 1.5. Dumont scale imaging description: Mild soft and minimal calcific plaque Percent internal carotid artery stenosis: Less than 50% stenosis. Vertebral artery: Flow direction is antegrade. Left side: Brachial blood pressure: 147/112 mm Hg. Common carotid artery peak systolic velocity: 71 cm/sec. Internal carotid artery peak systolic velocity: 54 cm/sec. Internal carotid artery end diastolic velocity: 12 cm/sec. External carotid artery peak systolic velocity: 73 cm/sec. ICA/CCA peak systolic ratio: 0.8. Dumont scale imaging description: Mild to moderate soft plaque and minimal calcific plaque Percent internal carotid artery stenosis: Less than 50% stenosis. Vertebral artery: Flow direction is antegrade. IMPRESSION: Less than 50% stenosis at the proximal internal carotid arteries bilaterally. Dictated by: Luis A Broussard M.D. on 08/21/2016 at 10:46 Approved by: Luis A Broussard M.D. on 08/21/2016 at 10:49
--- NOTE | 2016-08-21 11:26 | PCM.PNMED ---
Subjective Date of Service Aug 21, 2016 Exam Vital Signs Vital Sign - Last Date Time Temp Pulse Resp B/P Pulse Ox O2 Delivery O2 Flow Rate FiO2 08/21/16 10:47 Supplement Oxygen 08/21/16 09:46 36.5 92 18 145/75 95 2.50 Intake and Output 08/20/16 08/20/16 08/21/16 Cumulative From/Thru 15:00 23:00 07:00 08/21/16 03:41 - 08/21/16 04:15 Intake Total 1000 ml 1000 ml Balance 1000 ml 1000 ml Intake IV Total 1000 ml 1000 ml Lab and Diagnostics Result Diagram: 08/21/16 0330 08/21/16 0330 X-Rays, CTs and MRIs CT Head Interpretation IMPRESSION: No CT evidence of hemorrhage, mass, or acute infract. Radiologist: Jayson Sandoval MD 08/21/2016 - 4:17:54 AM PDT Assessment & Plan no charge, admitted past midnight, no recent viral illness o/n ongoing vertigo w any movement 2L O2 NAD A and O CTAB rrr soft nt nd + BS no edema CN2-12 grossly intact, hearing deficit right mild right arm dysmetria due to liekly residual weaknessdys dysarthric sppech STUDIES US BILATERAL DUPLEX DOPPLER IMAGING OF THE CAROTIDS ([id number]) INDICATIONS: stroke TECHNIQUE: Color and pulse Doppler interrogation was performed of both carotid systems, with image documentation and velocity measurements. COMPARISON: [facility], , US CAROTID DPLX DOPPLER BILAT, 2016, 10:51. FINDINGS: All stenosis calculations are based on NASCET criteria. Right side: Brachial blood pressure: 140/84 mm Hg. Common carotid artery peak systolic velocity: 66 cm/sec. Internal carotid artery peak systolic velocity: 11 cm/sec. Internal carotid artery end diastolic velocity: 28 cm/sec. External carotid artery peak systolic velocity: 87 cm/sec. ICA/CCA peak systolic ratio: 1.5. Dumont scale imaging description: Mild soft and minimal calcific plaque Percent internal carotid artery stenosis: Less than 50% stenosis. Vertebral artery: Flow direction is antegrade. Left side: Brachial blood pressure: 147/112 mm Hg. Common carotid artery peak systolic velocity: 71 cm/sec. Internal carotid artery peak systolic velocity: 54 cm/sec. Internal carotid artery end diastolic velocity: 12 cm/sec. External carotid artery peak systolic velocity: 73 cm/sec. ICA/CCA peak systolic ratio: 0.8. Dumont scale imaging description: Mild to moderate soft plaque and minimal calcific plaque Percent internal carotid artery stenosis: Less than 50% stenosis. Vertebral artery: Flow direction is antegrade. IMPRESSION: Less than 50% stenosis at the proximal internal carotid arteries bilaterally. Joselin Titus is a 81 year old female with 05/2016 right internal capsule lacunar infarct on asa/statin, has not been taking asa/statin, presented to ER due to vertigo, dysarthria similiar to prior CVA symptoms Acute reasons for admission. POA 1. recurrent Vertigo due to Possible Stroke. Present on admission risk factors includes Hypertension, Hyperlipidemia, previous Stroke and age. Not a TPA candidate due to symptoms ongoing for at least 3 days. Symptoms mainly vertigo points to a Posterior stroke. Differential diagnosis includes Benign Positional Vertigo - telemetry / permissive hypertension - Aspirin - she had not been taking - pending MRI/MRA brain, complete echo --unremarkable Carotid ultrasound - Speech, Occupational and Physical therapy assessment - consider Neurology consult if MRI confirm stroke findings 2. Hypertension holding Amlodipine 5 mg daily 3 Hyperlipidemia - Statin, it had been stopped this month due to transaminitis from cholecdocholithiasis recent UTI therapy --neg UA Other Chronic PMHX POA pubic ramus fracture 07/30/16- per ORtho- 1 month walker and HH had been recommended hypothyroidism - continue Synthroid 75 mcg daily CVA (lacunar) with right hemiparesis Angina. Kidney stones IBS / GERD / choledocholithiasis 07/2016 admission s/p ERCP f/u Dr. Sarabia GI Patient is admitted under observation status with expected length of stay less than 2 midnights due to severity of presenting symptoms, risk of adverse event, and complexity of treatment plan . VTE Mechanical Devices: Venous Foot Pump Resuscitation Status: DNR/DNI:Do Not Resuscitate/Intubate David Marie MD Aug 21, 2016 11:26
--- NOTE | 2016-08-21 13:04 | NUR ---
HILARIO explained and signed. Copy of HILARIO and Medicare self administered medication information given to pt.
--- NOTE | 2016-08-21 13:06 | NUR ---
off floor pt brought down stairs in hospital bed for MRI. pt given emesis bag for the ride due to upset stomach. Addendum: 08/21/16 at 1406 by HERIBERTO BYRNES RN pt returns from MRI, no appetite and still dizzy
--- NOTE | 2016-08-21 14:24 | DRSVH ---
PROCEDURE: MRI STROKE PROTOCOL ([id number]) Pre- and post-contrast brain MRI, non-contrast brain MR angiogram, pre- and postcontrast neck MR marcia ogram INDICATIONS: 78 year-old female with history of vertigo. TECHNIQUE: Brain: Noncontrast axial T1 spin echo, axial T2 fast spin echo, sagittal and axial FLAIR, coronal T2 fast spin echo, axial gradient echo, axial diffusion and ADC through the brain. After the administr ation of contrast, axial 3D VIBE of the cranial vasculature and brain. Brain MRA: Non-contrast 3-D time of flight MR angiogram, with multiple luxunsa-yqusxyhcd-vhycbwqzsd (MIP) reformats performed. Neck MRA: Axial and sagittal TruFISP through the neck. Coronal dynamic MR angiogram during administ ration of contrast in the arterial and venous phases, with 3-dimenstional bagharm-imimaddal-cirhpvrdi n (MIP) reformats constructed from subtraction images. COMPARISON: [facility], MR, MR STROKE PROTOCOL, 05/11/2016, 11:53. [facility] l, MR, MR ABD MRCP, 07/31/2016, 12:40. [facility], CT, CT BRAIN WO CON, 08/21/2016, 4:09. FINDINGS: Image quality: Excellent. BRAIN: CSF spaces: There is mild to moderate cerebral volume loss with prominence of the ventricles and sulc i. Basal cisterns are patent. No extra-axial fluid collections. Brain: Diffusion-weighted images demonstrate no acute infarcts. No intracranial hemorrhage, mass, o r mass effect. Dumont-white matter interface is preserved. There is an old lacunar infarct in the lef t thalamus redemonstrated. There are subcortical and periventricular foci of white matter T2 hyperin tensity consistent with mild to moderate chronic small vessel ischemic changes. There are prominent perivascular Virchow-Rafael spaces again noted. Brainstem appears normal. Normal intravascular flow voids are present. No abnormal intracranial enhancement. Skull and face: Calvarial marrow signal is normal. Orbits appear normal. Sinuses: There is good opacification of the left mastoid air cells consistent with mastoiditis. Para nasal sinuses are clear. BRAIN MR ANGIOGRAM: Anterior circulation: Intracranial internal carotid arteries are patent bilaterally. The flow withi n the paired anterior cerebral arteries is patent bilaterally. The flow within the middle cerebral a rteries is patent bilaterally. The anterior communicating artery is visualized. No high-grade steno ses, occlusions, or aneurysms. Posterior circulation: The visualized portions of the vertebral arteries appear patent and join to f orm a patent basilar artery. The flow within the posterior cerebral arteries is patent bilaterally w ith multifocal mild narrowing along their courses. No high-grade stenoses, occlusions, or aneurysms. NECK MR ANGIOGRAM: Carotids: Great vessels demonstrate conventional anatomy as they arise from the aortic arch. The or igins of the common carotid arteries appear patent. The calibers and courses of both common carotid arteries are normal. The bifurcation regions appear widely patent. The internal carotid arteries de monstrate normal course and caliber. Posterior circulation: The origins of the vertebral arteries appear patent. More superior portions of both vertebral arteries demonstrate normal course and caliber, and join to form a normal appearing basilar artery. Miscellaneous: Subclavian arteries appear patent. Pre-contrast images through the neck show no soft tissue abnormalities. IMPRESSION: BRAIN MRI: 1. No evidence of infarct or other acute intracranial abnormality. 2. Old left thalamic infarct redemonstrated as well mild to moderate chronic white matter small vess el ischemic changes. 3. Mild to moderate cerebral volume loss. BRAIN MR ANGIOGRAM: 1. No high-grade stenosis or occlusion of the central intracranial arteries. NECK MR ANGIOGRAM: 1. No high-grade stenosis or occlusion of the head and neck arteries. Carotid bulbs are widely mendez nt. The estimate of stenosis included in the report of the imaging study was calculated using the NASCET method Dictated by: Mani Simmons M.D. on 08/21/2016 at 14:23 Approved by: Mani Simmons M.D. on 08/21/2016 at 14:23
[2016-08-21] MEDS: Ondansetron 2 mg/mL 2 mL Inj IVPUSH PRN ×2 (15:35→19:17)
[2016-08-22] VITALS (9 sets, daily range): BP systolic 145–154; BP diastolic 76–101; PULSE 79–102; RESP 18; O2SAT 93–97
--- NOTE | 2016-08-22 06:00 | NUR ---
No urine Pt did not urinate during this shift. Bladder scan done and 365ml of urine found. Pt denies discomfort and states she wants to try to urinate in a little bit. Will pass on to day shift. Although there has not been any urine, pt is saline locked and has not been drinking very much.
--- NOTE | 2016-08-22 10:33 | NUR ---
no appetite pt states that she has eaten almost nothing in 5 days. She states that she is just not hungry. this RN offered her several options for snacks but pt refused all food but did ask for a cup of hot tea with sugar.
--- NOTE | 2016-08-22 12:57 | NUR ---
Social Work: Initial Assessment Late Entry Data & Assessment: See Initial Assessment. EMR reviewed. Patient is a 81 y/o female that admitted to the hospital for Vertigo and LMCA Stroke per H&P. SW met with patient at bedside to complete initial assessment, SW role reviewed and discharge planning discussed. Patient confirmed that her insurance is Medicare and [employer] and PCP is Dr. Henrry Duke. Patient has a re-admit score of three high risk. Patient's NOK is her daughter, Shiirn Young [phone], and patient does not have a Advance Directive/DPOA, but SW provided patient with the information. Patient lives in a Condo with her daughter and grandson. The patient is on the second floor, but the condo has elevator access. Patient has no SNF history, but has had [facility] in the past. Patient has a walker, WC and BSC at home. Patient reports that she ambulates with her walker most times, uses her WC for long distances. PT is currently recommending SNF, but patient would not beable to pay out of pocket. Patient sstates that she is in agreement with discharging home with her daughter and [facility], but she will eventually sell her condo and move into [facility]. Patient reported that her son King Chou is currently looking for [facility] in [place]. SW will continue to follow and assist patient throughout stay. Plan: Patient will either discharge to private pay SNF or Home with [facility]. SW will continue to follow and assist patient with discharge planning. Joana Hernandes LMSW, [facility] Addendum: 08/23/16 at 1316 by JOANA HERNANDES Amended: Links added.
[2016-08-22] MEDS ORDERED: Pantoprazole 40 mg ER24 Tablet PO ONE (13:55)
[2016-08-22] MEDS ORDERED: Ondansetron 2 mg/mL 2 mL Inj IVPUSH PRN (13:55)
[2016-08-22] MEDS ORDERED: Sodium Chloride NAS 45 mL Spray NASAL ONE (13:55)
[2016-08-22] MEDS ORDERED: Ondansetron 2 mg/mL 2 mL Inj IVPUSH ONE (13:55)
--- NOTE | 2016-08-22 13:58 | PCM.PNMED ---
Subjective Date of Service Aug 22, 2016 Exam Vital Signs Vital Sign - Last Date Time Temp Pulse Resp B/P Pulse Ox O2 Delivery O2 Flow Rate FiO2 08/22/16 13:22 36.6 79 18 146/101 96 Room Air 08/21/16 20:45 2.50 Intake and Output 08/21/16 08/21/16 08/22/16 Cumulative From/Thru 15:00 23:00 07:00 08/21/16 03:41 - 08/22/16 06:15 Intake Total 120 ml 0 ml 1120 ml Output Total 500 ml 0 ml 500 ml Balance -380 ml 0 ml 620 ml Intake Oral 120 ml 0 ml 120 ml IV Total 1000 ml Output Urine Total 500 ml 0 ml 500 ml # Voids 3 3 # Bowel Movements 3 3 Lab and Diagnostics Result Diagram: 08/21/16 0330 08/21/16 0330 X-Rays, CTs and MRIs CT Head Interpretation IMPRESSION: No CT evidence of hemorrhage, mass, or acute infract. 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 Acute reasons for admission. POA 1. recurrent Vertigo due to Possible Stroke. Present on admission risk factors includes Hypertension, Hyperlipidemia, previous Stroke and age. consider Benign Positional Vertigo - telemetry / permissive hypertension - Aspirin - she had not been taking - unremarkable MRI/MRA brain, complete echo, unremarkable Carotid ultrasound - Speech, Occupational and Physical therapy assessment 2. Hypertension holding Amlodipine 5 mg daily 3 Hyperlipidemia - resume Statin, it had been stopped this month due to transaminitis from cholecdocholithiasis recent UTI therapy --neg UA nasal congestion - trial ocean spray fluticasone poor appetite/abdominal pain/nausea --IVF --protonix home peptobismol zofran OAB on home detrol w/ expected incontinence and elevated PVR 300s --anticipate f/u w/ urologist outpatient Other Chronic PMHX POA pubic ramus fracture 07/30/16- per ORtho- 1 month walker and HH had been recommended hypothyroidism - continue Synthroid 75 mcg daily CVA (lacunar) with right hemiparesis Angina. Kidney stones IBS / GERD / choledocholithiasis 07/2016 admission s/p ERCP f/u Dr. Cornell BURNETTE Patient is admitted under observation status, now HD 2 . VTE Mechanical Devices: Venous Foot Pump Resuscitation Status: DNR/DNI:Do Not Resuscitate/Intubate David Marie MD Aug 22, 2016 13:58 OAB on detrol PVR 300s, anticipate f/u w/ urologist outpatient Acute reasons for admission. POA 1. recurrent Vertigo due to Possible Stroke. Present on admission risk factors includes Hypertension, Hyperlipidemia, previous Stroke and age. Not a TPA candidate due to symptoms ongoing for at least 3 days. Symptoms mainly vertigo points to a Posterior stroke. Differential diagnosis includes Benign Positional Vertigo - telemetry / permissive hypertension - Aspirin - she had not been taking - pending MRI/MRA brain, complete echo --unremarkable Carotid ultrasound - Speech, Occupational and Physical therapy assessment - consider Neurology consult if MRI confirm stroke findings 2. Hypertension holding Amlodipine 5 mg daily 3 Hyperlipidemia - Statin, it had been stopped this month due to transaminitis from cholecdocholithiasis recent UTI therapy --neg UA Other Chronic PMHX POA pubic ramus fracture 07/30/16- per ORtho- 1 month walker and HH had been recommended hypothyroidism - continue Synthroid 75 mcg daily CVA (lacunar) with right hemiparesis Angina. Kidney stones IBS / GERD / choledocholithiasis 07/2016 admission s/p ERCP f/u Dr. Cornell BURNETTE Patient is admitted under observation status with expected length of stay less than 2 midnights due to severity of presenting symptoms, risk of adverse event, and complexity of treatment plan . VTE Mechanical Devices: Venous Foot Pump Resuscitation Status: DNR/DNI:Do Not Resuscitate/IntubaDavid Pedro MD Aug 22, 2016 13:58
[2016-08-22] MEDS ORDERED: D5 0.9% NaCl + KCl 20 mEq/L 500 ML IV SCH (14:00)
[2016-08-22] MEDS ORDERED: POTASSIUM CHLORIDE IV ONE (14:31)
[2016-08-22] MEDS ORDERED: NACL IV ONE (14:31)
[2016-08-22] MEDS ORDERED: DEXTROSE IV ONE (14:31)
[2016-08-22] MEDS ORDERED: Potassium Chloride Inj 10 MEQ in Dextrose 5% 0.9% NaCl 500 ML IV ONE (14:33)
[2016-08-22] MEDS: Sodium Chloride NAS 45 mL Spray NASAL PRN ×2 (14:55→14:57)
[2016-08-22] MEDS: Fluticasone 0.05% 15 Spray/2 Gm 16 Gm Nasal Spray NASAL SCH (21:30)
[2016-08-22] MEDS: Ondansetron 2 mg/mL 2 mL Inj IVPUSH PRN (23:20)
[2016-08-23] VITALS (7 sets, daily range): BP systolic 124–160; BP diastolic 79–82; PULSE 83–98; RESP 18; O2SAT 94–98
[2016-08-23] MEDS: Ondansetron 2 mg/mL 2 mL Inj IVPUSH PRN (00:52)
--- NOTE | 2016-08-23 05:50 | NUR ---
N/D at start of shift pt complained of having several BMs and asked if she could have immodium. pt then proceeded to have a large loose foul smelling BM. notified who ordered a PCR cdiff test. pt put on enteric precautions. throughout the shift she complained of a "funny sensation" in her stomach she was uncertain if it was nausea and said denied pain. zofran was administered but was not helpful. this AM pt reported that what she was feeling was nausea but declined anti-emetics. she had another large loose BM and stool sample was sent to the lab. pt has still declined getting out of bed this shift. she says she know longer feels dizzy but feels "strange" but she can not define for the nurse what exactly she is feeling. will continue to monitor.
[2016-08-23] MEDS ORDERED: Pantoprazole 40 mg ER24 Tablet PO SCH (07:30)
[2016-08-23] MEDS: Fluticasone 0.05% 15 Spray/2 Gm 16 Gm Nasal Spray NASAL SCH ×2 (07:39→21:21)
--- NOTE | 2016-08-23 08:26 | NUR ---
C-diff this RN called micro to get status of stool sample, it just came back as positive for C-diff. pt on enteric contact precautions.
[2016-08-23 09:01] LABS: BASOPHILS % (AUTO) 0.2 % (0-3); EOSINOPHILS % (AUTO) 0.2 % (0-5); MONOCYTES % (AUTO) 5.6 % (4-12); Mean Corpuscular Hemoglobin 30.7 pg (27.0-35.0); Mean Corpuscular Volume 94.1 fL (81-100); NEUTROPHILS % (AUTO) 71.3 % (40-74); Platelet Count 313 bil/L (150-400)
[2016-08-23 09:34] LABS: Magnesium 1.9 mg/dL (1.6-2.6)
--- NOTE | 2016-08-23 12:50 | NUR ---
Social Work: Continued Discharge Planning Counseling Services Director attempted to call patient's daughter, Shirin Young [phone], to discuss discharge planning, but there was no answer. SW will continue to try and contact patient's daughter. SW will continue to follow patient. Patient: SW will continue to follow patient to assist with discharge planning. Stephanie Hernandes LMSW, ACM
--- NOTE | 2016-08-23 13:10 | PCM.PNMED ---
Subjective Date of Service Aug 23, 2016 Subjective Started to have watery diarrhea 6-8 episodes per day since yesterday. C. difficile positive. Afebrile.vertigo improving Exam Vital Signs Vital Sign - Last Date Time Temp Pulse Resp B/P Pulse Ox O2 Delivery O2 Flow Rate FiO2 08/23/16 10:23 Room Air 08/23/16 10:02 36.6 89 18 150/82 96 08/21/16 20:45 2.50 Intake and Output 08/22/16 08/22/16 08/23/16 Cumulative From/Thru 15:00 23:00 07:00 08/21/16 03:41 - 08/23/16 06:40 Intake Total 350 ml 704 ml 2174 ml Output Total 170 ml 670 ml Balance 180 ml 704 ml 1504 ml Intake Oral 200 ml 359 ml 679 ml IV Total 150 ml 345 ml 1495 ml Output Urine Total 170 ml 670 ml # Voids 1 4 # Bowel Movements 3 3 9 Exam Comfortable, no distress NAD A and O CTAB rrr soft, trace tenderness lower abdomen, nd + BS no edema CN2-12 grossly intact, hearing deficit right >> bilateral mild right arm dysmetria due to likely residual weakness speech clear IVs and Medications Medications Reviewed: Medications were reviewed in detail Lab and Diagnostics Result Diagram: 08/23/16 0853 08/23/16 0853 X-Rays, CTs and MRIs CT Head Interpretation IMPRESSION: No CT evidence of hemorrhage, mass, or acute infract. Radiologist: Jayson Sandoval MD 08/21/2016 - 4:17:54 AM PDT PROCEDURE: MRI STROKE PROTOCOL ([id number]) Pre- and post-contrast brain MRI, non-contrast brain MR angiogram, pre- and postcontrast neck MR angiogram IMPRESSION: BRAIN MRI: 1. No evidence of infarct or other acute intracranial abnormality. 2. Old left thalamic infarct redemonstrated as well mild to moderate chronic white matter small vessel ischemic changes. 3. Mild to moderate cerebral volume loss. BRAIN MR ANGIOGRAM: 1. No high-grade stenosis or occlusion of the central intracranial arteries. NECK MR ANGIOGRAM: 1. No high-grade stenosis or occlusion of the head and neck arteries. Carotid bulbs are widely patent. The estimate of stenosis included in the report of the imaging study was calculated using the NASCET method Dictated by: Mani Simmons M.D. on 08/21/2016 at 14:23 PROCEDURE: US BILATERAL DUPLEX DOPPLER IMAGING OF THE CAROTIDS ([id number]) INDICATIONS: stroke IMPRESSION: Less than 50% stenosis at the proximal internal carotid arteries bilaterally. Dictated by: Luis A Broussard M.D. 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 # acute c.dif colitis,not poa -Patient states she was treated for UTI with antibiotics in May. Denies any other antibiotic use after May. No mention of antibiotic use or recent admission. -Started 1 to have watery diarrhea yesterday. C. difficile positive. Started vancomycin by mouth. Contact isolation -Discontinued PPI #. recurrent Vertigo due to Possible Stroke. Present on admission risk factors includes Hypertension, Hyperlipidemia, previous Stroke and age. consider Benign Positional Vertigo - telemetry / permissive hypertension - Aspirin - she had not been taking - unremarkable MRI/MRA brain, complete echo, unremarkable Carotid ultrasound - Speech, Occupational and Physical therapy assessment #. Hypertension holding Amlodipine 5 mg daily #. Hyperlipidemia - resume Statin, it had been stopped this month due to transaminitis from cholecdocholithiasis # nasal congestion - trial of spray fluticasone # OAB on home detrol w/ expected incontinence and elevated PVR 300s --anticipate f/u w/ urologist outpatient Other Chronic PMHX POA # pubic ramus fracture 07/30/16- per ORtho- 1 month walker and HH had been recommended # hypothyroidism - continue Synthroid 75 mcg daily # history of CVA (lacunar) with residual right hemiparesis # history of Kidney stones # recent choledocholithiasis 07/2016 admission s/p ERCP , f/u Dr. Wood GI Patient is admitted under observation status, now HD 2 ,switched to inpatient given new c.dif with anticipated LOS > 2MNs Discharge to SNF in 2-3 days . VTE Mechanical Devices: Venous Foot Pump Resuscitation Status: DNR/DNI:Do Not Resuscitate/Intubate Talib Sanders MD Aug 23, 2016 13:10 Talib Sanders MD Aug 23, 2016 13:10 Patient is admitted under observation status, now HD 2 . VTE Mechanical Devices: Venous Foot Pump Resuscitation Status: DNR/DNI:Do Not Resuscitate/Intubate Talib Sanders MD Aug 23, 2016 13:10
[2016-08-23] MEDS: Vancomycin 125 mg Oral Capsule PO SCH ×2 (14:52→21:21)
--- NOTE | 2016-08-23 15:04 | NUR ---
Evaluation completed. Please go to "Notes" then click on "Assessments and Notes" (bottom left corner of screen). Then select appropriate discipline tab on top of screen.
--- NOTE | 2016-08-23 17:56 | NUR ---
Case Management: Explained IMM to patient at 1725, all questions answered. Signed original placed in chart, copy given to patient. Shirin Guerra RN
[2016-08-24] VITALS (7 sets, daily range): BP systolic 115–150; BP diastolic 72–79; PULSE 83–96; RESP 18; O2SAT 92–96
[2016-08-24] MEDS: Vancomycin 125 mg Oral Capsule PO SCH ×4 (02:46→20:45)
--- NOTE | 2016-08-24 06:08 | NUR ---
NOC PT has slept well over night. Pt denies any pain. NO BM this shift. Takes meds whole without difficulty. We have been turning her every 2 hours due to her level of weakness. Neuro checks are WNL. WHen checking DF and PF there is no noted deficit. PT alert and oriented. PT in NSR on tele. V/S WNL. WIll CTM.
--- NOTE | 2016-08-24 06:41 | NUR ---
NO VOID PT has not voided this shift. Bladder scanned her for 400ml. PT states she does not feel like she has to void at this time. She is attempting to do so. PT does not usually have any issues voiding. Page out to Dr Ma to notify him. Waiting for call back. Dr Ma said to monitor her until she feels like she is able to void.
[2016-08-24] MEDS: Fluticasone 0.05% 15 Spray/2 Gm 16 Gm Nasal Spray NASAL SCH ×2 (09:22→20:45)
--- NOTE | 2016-08-24 12:18 | NUR ---
Gave access and faxed facesheet to [facility] per [employer] MEMBER Addendum: 08/24/16 at 1509 by RUBINA CHANEY CM [facility] accepted patient with to follow
--- NOTE | 2016-08-24 15:35 | PCM.PNMED ---
Subjective Date of Service Aug 24, 2016 Subjective Diarrhea improved and no episode of diarrhea today. She had abdominal cramps today. Afebrile. No vertigo Exam Vital Signs Vital Sign - Last Date Time Temp Pulse Resp B/P Pulse Ox O2 Delivery O2 Flow Rate FiO2 08/24/16 11:32 Room Air 08/24/16 10:18 89 08/24/16 09:27 36.6 18 125/72 92 08/21/16 20:45 2.50 Intake and Output 08/23/16 08/23/16 08/24/16 Cumulative From/Thru 15:00 23:00 07:00 08/21/16 03:41 - 08/24/16 06:31 Intake Total 200 ml 2374 ml Output Total 0 ml 670 ml Balance 200 ml 1704 ml Intake Oral 200 ml 879 ml IV Total 1495 ml Output Urine Total 0 ml 670 ml # Voids 4 # Bowel Movements 9 Exam Comfortable, no distress NAD A and O CTAB rrr soft, trace tenderness lower abdomen, nd + BS no edema CN2-12 grossly intact, hearing deficit right >> bilateral mild right arm dysmetria due to likely residual weakness speech clear IVs and Medications Medications Reviewed: Medications were reviewed in detail Lab and Diagnostics Result Diagram: 08/23/16 0853 08/23/16 0853 X-Rays, CTs and MRIs CT Head Interpretation IMPRESSION: No CT evidence of hemorrhage, mass, or acute infract. Radiologist: Jayson Sandoval MD 08/21/2016 - 4:17:54 AM PDT PROCEDURE: MRI STROKE PROTOCOL ([id number]) Pre- and post-contrast brain MRI, non-contrast brain MR angiogram, pre- and postcontrast neck MR angiogram IMPRESSION: BRAIN MRI: 1. No evidence of infarct or other acute intracranial abnormality. 2. Old left thalamic infarct redemonstrated as well mild to moderate chronic white matter small vessel ischemic changes. 3. Mild to moderate cerebral volume loss. BRAIN MR ANGIOGRAM: 1. No high-grade stenosis or occlusion of the central intracranial arteries. NECK MR ANGIOGRAM: 1. No high-grade stenosis or occlusion of the head and neck arteries. Carotid bulbs are widely patent. The estimate of stenosis included in the report of the imaging study was calculated using the NASCET method Dictated by: Mani Simmons M.D. on 08/21/2016 at 14:23 PROCEDURE: US BILATERAL DUPLEX DOPPLER IMAGING OF THE CAROTIDS ([id number]) INDICATIONS: stroke IMPRESSION: Less than 50% stenosis at the proximal internal carotid arteries bilaterally. Dictated by: Luis A Broussard M.D. 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 # acute c.dif colitis,not poa, improving -Patient states she was treated for UTI with antibiotics in May. Denies any other antibiotic use after May. No mention of antibiotic use or recent admission. -Started to have watery diarrhea 08/22. C. difficile positive. Started vancomycin by mouth. Contact isolation -Discontinued PPI #. recurrent Vertigo due to Possible BPPV. Present on admission - telemetry - Aspirin - she had not been taking - unremarkable MRI/MRA brain, complete echo, unremarkable Carotid ultrasound - Speech, Occupational and Physical therapy assessment #. Hypertension holding Amlodipine 5 mg daily #. Hyperlipidemia - resume Statin, it had been stopped this month due to transaminitis from cholecdocholithiasis # nasal congestion - trial of spray fluticasone # OAB on home detrol w/ expected incontinence and elevated PVR 300s --anticipate f/u w/ urologist outpatient Other Chronic PMHX POA # pubic ramus fracture 07/30/16- per ORtho- 1 month walker and HH had been recommended # hypothyroidism - continue Synthroid 75 mcg daily # history of CVA (lacunar) with residual right hemiparesis # history of Kidney stones # recent choledocholithiasis 07/2016 admission s/p ERCP , f/u Dr. Wood GI Discharge to SNF in 2-3 days . VTE Mechanical Devices: Intermittant Pneumatic CD Resuscitation Status: DNR/DNI:Do Not Resuscitate/Intubate Talib Sanders MD Aug 24, 2016 15:35
--- NOTE | 2016-08-24 15:55 | NUR ---
SW - Readiness for Discharge Data: Pt is on day 3 of hospitalization for LMCA stroke, vertigo. Per morning rounds pt is likely to discharge tomorrow. PT is recommending SNF and Pt is agreeable. Provided SNF choice list and Pt stated preference for [facility]. UR specialist sent referral and pt was approved. Pt to discharge to [facility]. SW will continue to follow for needs. Assessment: Pt who would benefit from SNF Plan: Pt to discharge to [facility] at discharge. SW will continue to follow for needs. DARLYN Vinson
[2016-08-24] MEDS: Ondansetron 2 mg/mL 2 mL Inj IVPUSH PRN (17:49)
--- NOTE | 2016-08-24 18:53 | NUR ---
Dayshift Reported that pt does not void often. Pt did have one heavy void in the morning saturating the brief. No further BM or urination during shift. Pt worked with PT, upon getting up at side of bed reported becoming dizzy. No near falls happened during shift. Pt instructed to use call light anytime she wants to ambulate. Pt cooperative with plan. Pt reported pain and nausea during shift. Given PRN Zofran and Tylenol when requested. Sometime pt declines medication. Pt very pleasant and cooperative, plan for discharge to SNF tomorrow.
--- NOTE | 2016-08-24 23:18 | NUR ---
PSVT Per telesales manager PT had 11 second run of PSVT, PT asymptomatic, notified.
[2016-08-25 01:14] VITALS: BP 136/79; PULSE 92; RESP 18; O2SAT 93
[2016-08-25] MEDS: Vancomycin 125 mg Oral Capsule PO SCH ×2 (03:15→11:43)
[2016-08-25 05:00] VITALS: BP 125/79; PULSE 82; RESP 18; O2SAT 94
[2016-08-25] MEDS: Fluticasone 0.05% 15 Spray/2 Gm 16 Gm Nasal Spray NASAL SCH (08:30)
[2016-08-25 08:53] VITALS: BP 127/80; PULSE 98; RESP 18; O2SAT 92
--- NOTE | 2016-08-25 09:32 | PCM.DIMED ---
Discharge Instructions Date of Service Aug 25, 2016 Dates of Hospitalization Aug 21, 2016 at 05:31 Discharge Diagnosis Discharge Diagnosis # acute c.dif colitis,not poa, improving #. recurrent Vertigo due to Possible BPPV. Present on admission #. Hypertension #. Hyperlipidemia Other Chronic PMHX POA # pubic ramus fracture 07/30/16- # hypothyroidism - # history of CVA (lacunar) with residual right hemiparesis # history of Kidney stones # recent choledocholithiasis 07/2016 admission s/p ERCP , Test Results c.dif colitis positive MRI negative for acute stroke Diet Low fat, Low Sodium, Heart Healthy Activity Other (continue physical therapy at care home facility.) Call your provider Fever or Chills, Shortness of breath, Bleeding, Chest pain, Vomitting, Excessive diarrhea, Weakness (unilateral) Patient Instructions You were hospitalized due to vertigo . MRI is negative for acute stroke.vertigo probably due to BPPV ( benign paroxysmal positional vertigo) . Please continue meclizine as needed for vertigo/dizziness. Please continue physical therapy at care home facility. You also developed C. difficile colitis during current hospitalization. Please continue vancomycin by mouth for 8 more days as prescribed. Follow-up plan Please follow-up with PCP one week after discharge from care home facility Follow-up Provider: Henrry Duke DO Follow-up with PCP in: 1 week Talib Sanders MD Aug 25, 2016 09:32
[2016-08-25] MEDS ORDERED: ASPI325T32 PO (09:33)
[2016-08-25] MEDS ORDERED: Meclizine Hcl PO (09:33)
[2016-08-25] MEDS ORDERED: VANC125C3 PO (09:33)
--- NOTE | 2016-08-25 11:05 | NUR ---
Spoke to [facility], who agreed to arrange transport for noon. Advised DARLYN> Addendum: 08/25/16 at 1120 by MARIA DEL ROSARIO LEBLANC orders faxed, packet ready.
[2016-08-25 11:10] VITALS: PULSE 90
--- NOTE | 2016-08-25 12:38 | PCM.DC.MED ---
Discharge Summary Date of Service Aug 25, 2016 Dates of Hospitalization Date of Hospital Admission Aug 21, 2016 at 05:31 Date of Discharge: Aug 25, 2016 Providers: Admitting Physician: Glenn Phan MD Primary Care Physician: Henrry Duke DO Attending Physician: Glenn Phan MD Diagnosis at Time of Discharge Diagnosis at Time of Discharge # acute c.dif colitis,not poa, improving #. recurrent Vertigo due to Possible BPPV. Present on admission #. Hypertension #. Hyperlipidemia Other Chronic PMHX POA # pubic ramus fracture 07/30/16- # hypothyroidism - # history of CVA (lacunar) with residual right hemiparesis # history of Kidney stones # recent choledocholithiasis 07/2016 admission s/p ERCP , Consultations none Procedures XRay, CTs & MRIs CT Head Interpretation IMPRESSION: No CT evidence of hemorrhage, mass, or acute infract. Radiologist: Jayson Sandoval MD 08/21/2016 - 4:17:54 AM PDT PROCEDURE: MRI STROKE PROTOCOL ([id number]) Pre- and post-contrast brain MRI, non-contrast brain MR angiogram, pre- and postcontrast neck MR angiogram IMPRESSION: BRAIN MRI: 1. No evidence of infarct or other acute intracranial abnormality. 2. Old left thalamic infarct redemonstrated as well mild to moderate chronic white matter small vessel ischemic changes. 3. Mild to moderate cerebral volume loss. BRAIN MR ANGIOGRAM: 1. No high-grade stenosis or occlusion of the central intracranial arteries. NECK MR ANGIOGRAM: 1. No high-grade stenosis or occlusion of the head and neck arteries. Carotid bulbs are widely patent. The estimate of stenosis included in the report of the imaging study was calculated using the NASCET method Dictated by: Mani Simmons M.D. on 08/21/2016 at 14:23 PROCEDURE: US BILATERAL DUPLEX DOPPLER IMAGING OF THE CAROTIDS ([id number]) INDICATIONS: stroke IMPRESSION: Less than 50% stenosis at the proximal internal carotid arteries bilaterally. Dictated by: Luis A Broussard M.D. on 08/21/2016 at 10:46 Brief History per HPI by Dr Phan on 08/21/16 Joselin Titus is a 81 year old female with Prior lacunar stroke, hypertension , hyperlipidemia, right hip hemiarthroplasty, and recent pubic ramus fracture on 07/30 presents to [facility] emergency department via EMS complaining of vertigo that began 3 days ago. She describes the sensation that the room is spinning and that she feels very dizzy. The patient states that these symptoms are constant and have never let up. She called 911 several days ago and a decision was made not to transport. She reports associated diplopia, nausea, general malaise, decreased PO intake, and weakness but denies headache, chest pain, shortness of breath, or abdominal pain. She reports her current symptoms were exactly like to ones prior to her diagnosis of Stroke recently She reports prior right sided deficits with her prior stroke, both weakness and tingling. No new medications started except Amoxicillin. Denies any trauma to her head. Patient has limited mobility since her pelvic fracture but she was able to walk until the last day. Patient was started on Amoxicillin for a UTI on 08/19, but stopped taking them because they made her feel sick. Case discussed with Dr Abernathy, Ct head showed no bleeding but still unstable on her feet with ongoing vertigo. Plan to admit to complete a Stroke workup. Hospital Course Joselin Titus is a 81 year old female with 05/2016 right internal capsule lacunar infarct on asa/statin, has not been taking asa/statin, presented to ER due to vertigo, dysarthria similiar to prior CVA symptoms, though resolved, now w/ ongoing malaise and generalized weakness. # acute c.dif colitis,not poa, improving -Patient states she was treated for UTI with antibiotics in May. Denies any other antibiotic use after May. No mention of antibiotic use or recent admission. -Started to have watery diarrhea 08/22. C. difficile positive. Started vancomycin by mouth. Continue vancomycin by mouth for 8 more days. -Discontinued PPI #. recurrent Vertigo due to Possible BPPV. Present on admission - telemetry unrevealing - Continue Aspirin for secondary prevention - unremarkable MRI/MRA brain, complete echo, unremarkable Carotid ultrasound - Speech, Occupational and Physical therapy assessment -Continue meclizine as needed #. Hypertension Resume Amlodipine 5 mg daily #. Hyperlipidemia - resume Statin, it had been stopped this month due to transaminitis from cholecdocholithiasis # OAB on home detrol w/ expected incontinence and elevated PVR 300s --anticipate f/u w/ urologist outpatient Other Chronic PMHX POA # pubic ramus fracture 07/30/16- per ORtho- 1 month walker and HH had been recommended # hypothyroidism - continue Synthroid 75 mcg daily # history of CVA (lacunar) with residual right hemiparesis # history of Kidney stones # recent choledocholithiasis 07/2016 admission s/p ERCP , f/u Dr. Wood GI Discharge to SNF [facility] today Condition on discharge stable . Exam Vital Signs (Last) Date Time Temp Pulse Resp B/P Pulse Ox O2 Delivery O2 Flow Rate FiO2 08/25/16 11:10 90 08/25/16 08:53 36.9 18 127/80 92 Room Air 08/21/16 20:45 2.50 Exam Comfortable, no distress NAD A and O CTAB rrr soft, trace tenderness lower abdomen, nd + BS no edema CN2-12 grossly intact, hearing deficit right >> bilateral mild right arm dysmetria due to likely residual weakness speech clear Test 08/21/16 03:30 08/21/16 06:39 08/23/16 08:53 Prothrombin Time 10.3sec (8.1-12.5) Prothromb Time International Ratio 0.96ratio Activated Partial Thromboplast Time 28.7sec (22.8-33.0) Troponin T 0.010ug/L (0.0-0.011) Urine Color Yellow (YELLOW) Urine Appearance Hazy (CLEAR,HAZY) Urine pH 7.5 (5.0-8.0) Urine Specific Mobile 1.015 (1.003-1.035) Urine Protein Negativemg/dL (NEG,TRACE) Urine Glucose (UA) Negativemg/dL (NEGATIVE) Urine Ketones 15mg/dL (NEGATIVE) Urine Occult Blood Trace (NEGATIVE) Urine Nitrite Negative (NEGATIVE) Urine Bilirubin Negative (NEGATIVE) Urine Urobilinogen Normalmg/dL (NORMAL) Urine Leukocyte Esterase Negative (NEGATIVE) Urine RBC 0-2/hpf (0-2) Urine WBC 0-5/hpf (0-5) Urine Epithelial Cells Few/hpf (NONE-MOD) Urine Crystals Amorphous phosphates Urine Bacteria None/hpf (NONE-FEW) Urine Hyaline Casts None/lpf (NONE) Urine Granular Casts None seen (NONE SEEN) Urine Waxy Casts None seen (NONE SEEN) Urine Red Blood Cell Casts None seen (NONE SEEN) Urine White Blood Cell Casts None seen (NONE SEEN) Urine Mucus None seen (None Seen) Urine Trichomonas None seen (NONE SEEN) Urine Yeast None (NONE SEEN) Urinalysis Comment None Urine Culture Reflexed Not indicated White Blood Count 9.0th/mm3 (3.8-10.1) Red Blood Count 4.56mil/mm3 (3.90-5.20) Hemoglobin 14.0g/dL (12.0-15.6) Hematocrit 42.9% (35.0-46.0) Mean Corpuscular Volume 94.1fL (81-100) Mean Corpuscular Hemoglobin 30.7pg (27.0-35.0) Mean Corpuscular Hemoglobin Concent 32.6% (32.0-37.0) Red Cell Distribution Width 13.1% (12.3-15.4) Platelet Count 313bil/L (150-400) Neutrophils (%) (Auto) 71.3% (40-74) Lymphocytes (%) (Auto) 22.5% (14-46) Monocytes (%) (Auto) 5.6% (4-12) Eosinophils (%) (Auto) 0.2% (0-5) Basophils (%) (Auto) 0.2% (0-3) Sodium Level 142mEq/L (134-144) Potassium Level 3.6mEq/L (3.5-5.2) Chloride Level 102mEq/L (97-108) Carbon Dioxide Level 26mmol/L (18-29) Blood Urea Nitrogen 13mg/dL (8-27) Creatinine 0.64mg/dL (0.57-1.00) Estimat Glomerular Filtration Rate 127mL/min (>59) Glucose Level 95mg/dL (60-99) Calcium Level 9.5mg/dL (8.5-10.1) Magnesium Level 1.9mg/dL (1.6-2.6) Total Bilirubin 0.6mg/dL (0.0-1.2) Aspartate Amino Transf (AST/SGOT) 17U/L (0-50) Alanine Aminotransferase (ALT/SGPT) 9U/L (0-32) Alkaline Phosphatase 227U/L (25-165) Total Protein 6.5g/dL (6.4-8.4) Albumin 3.7g/dL (3.4-5.0) Discharge Medications Discharge Medications Amlodipine (Amlodipine) 5 Mg Tablet 5 MG PO DAILY (Reported) Aspirin (Aspirin) 325 Mg Tablet 325 MG PO DAILY Prescribed by: ANDERS MARQUES MD Atorvastatin (Lipitor) 40 Mg Tablet 40 MG PO DAILY Prescribed by: NANCY CHIN MD Gabapentin (Neurontin) 300 Mg Capsule 300 MG PO HS Prescribed by: FAN GU DO Levothyroxine (Levothyroxine) 50 Mcg Tablet 50 MCG PO DAILY Prescribed by: NANCY CHIN MD Omeprazole (Omeprazole) 20 Mg Capsule.dr 20 MG PO BID (Reported) Tolterodine Tartrate ER (Tolterodine Tartrate ER) 4 Mg Capsule 4 MG PO DAILY Prescribed by: NANCY CHIN MD Vancomycin (Vancomycin) 125 Mg Capsule 125 MG PO Q6 Prescribed by: ANDERS MARQUES MD As needed ([Meclizine Hcl]) 25 MG TABLET 25 MG PO TID PRN PRN For Dizziness Prescribed by: ANDERS MARQUES MD Acetaminophen (Acetaminophen) 500 Mg Tablet 1,000 MG PO TID PRN PRN For Pain ( Reported) Bismuth Subsalicylate (Pepto-Bismol) 262 Mg Tab.chew 262-1,048 MG PO PRN PRN PRN For Dyspepsia or Heartburn (Reported) Calcium Carbonate (Calcium Carbonate) 300 Mg Calcium (750 Mg) Tab.chew 300 MG PO QID PRN PRN For Dyspepsia or Heartburn (Reported) Nitroglycerin SL (Nitroglycerin SL) 0.4 Mg Tab.subl 0.4 MG SL Q5MIN PRN PRN For Chest Pain (Reported) Repeat every 5 minutes, up to 3 tablets Polyethylene Glycol 3350 (Miralax) 17 Gm Powd.pack 17 GM PO DAILY PRN PRN For Constipation Prescribed by: FAN GU DO Sennosides (Senna) 8.6 Mg Tablet 17.2 MG PO BID PRN PRN For Constipation Prescribed by: FAN GU DO Tramadol (Tramadol) 50 Mg Tablet 50 MG PO QID PRN PRN For Pain (Reported) oxyCODONE (oxyCODONE) 5 Mg Tablet 5 MG PO Q4H PRN PRN For Moderate Pain Prescribed by: FAN GU DO Followup Plan Disposition: [facility] Follow-up plan Please follow-up with PCP one week after [facility] from [facility] Discharge Diet: Low fat, Low Sodium, Heart Healthy Discharge Activity: Other Patient Instructions You were hospitalized due to vertigo . MRI is negative for acute stroke.vertigo probably due to BPPV ( benign paroxysmal positional vertigo) . Please continue meclizine as needed for vertigo/dizziness. Please continue physical therapy at retirement facility. You also developed C. difficile colitis during current hospitalization. Please continue vancomycin by mouth for 8 more days as prescribed. Follow-up Provider: Henrry Duke DO Follow-up with PCP in: 1 week Time spent 35 minutes copies to: Henrry Duke Melaku MD Aug 25, 2016 12:38
--- NOTE | 2016-08-25 12:46 | NUR ---
Discharge: Patient discharged to [facility] @ approx 1240 via wheelchair accompanied by transport service. IV d/c'd by Student RN, telemetry removed, court monitor notified. Personal belongings sent with patient. Medical Records packet given to transport. Report called to Susy @ [facility] at 1245.
== END 2016-08-25 13:38 | DRG 149 ==
LOC: SED 03:37 → OBSVTOIN 05:31 → MPC 05:31 → SOU 08-25 10:59 → MPC 08-25 11:01
PROVIDERS: ADMIT Hospitalist; ATTEND Hospitalist
DX: H81.10 Benign paroxysmal vertigo, unspecified ear (principal); I69.951 Hemiplegia and hemiparesis following unspecified cerebrovascular disease affecting right dominant side; A04.7 Enterocolitis due to Clostridium difficile; I10 Essential (primary) hypertension; R40.2142 Coma scale, eyes open, spontaneous, at arrival to emergency department; R40.2362 Coma scale, best motor response, obeys commands, at arrival to emergency department; R40.2252 Coma scale, best verbal response, oriented, at arrival to emergency department; R40.2412 Glasgow coma scale score 13-15, at arrival to emergency department; Z87.891 Personal history of nicotine dependence; E78.5 Hyperlipidemia, unspecified; E03.9 Hypothyroidism, unspecified; Z66 Do not resuscitate; Z51.5 Encounter for palliative care; R09.81 Nasal congestion